=== PATIENT | male | born 1950 | race Caucasian/White ===

== ENCOUNTER 2017-06-01 09:37 | Inpatient (IN) | payer OTHER ==
[~2017-06-01] VITALS: Ht 180.3 cm; Wt 76.2 kg
[2017-06-01] VITALS (13 sets, daily range): BP systolic 122–174; BP diastolic 75–100
[~2017-06-01 09:37] MED LIST: ASP325T PO; ATOR40TA PO; CLOP75TA PO; CYCL10TA9 PO; LISI10TA PO; METO-270 PO; PRX10T PO; RT-ALBUTEROL/IPRATROPIUM 3 ML (DUONEB) VIAL ONE
[2017-06-01] MEDS ORDERED: RT-ALBUTEROL SULF 2.5 MG/3 ML PRE-MIX VIAL ONE (09:45)
[2017-06-01] MEDS ORDERED: methylPREDNISolone 125 MG (Solu-MEDROL) VIAL IVP ONE (09:45)
[2017-06-01] MEDS ORDERED: ASPIRIN 81 MG CHEW (CHILDREN'S ASA) PO ONE (09:45)
[2017-06-01] MEDS ORDERED: RT-ALBUTEROL/IPRATROPIUM 3 ML (DUONEB) VIAL INH ONE (09:45)
[2017-06-01] MEDS ORDERED: RT-ALBUTEROL SULF 2.5 MG/3 ML PRE-MIX VIAL INH STA (09:49)
[2017-06-01 09:50] LABS: BASOPHILS # (AUTO) 0.1 10^3/uL (0.0-0.1); BASOPHILS % (AUTO) 1 % (0-10); EOSINOPHILS # (AUTO) 0.4 10^3/uL (0.0-0.3); EOSINOPHILS % (AUTO) 3 % (0-10); LYMPHOCYTES # (AUTO) 3.7 X 10^3 (1.0-4.0); LYMPHOCYTES % (AUTO) 29 % (12-44); MEAN CORPUSCULAR HEMOGLOBIN 29 PG (25-34); MEAN CORPUSCULAR HGB CONC 33 G/DL (32-36); MEAN CORPUSCULAR VOLUME 88 FL (80-99); MEAN PLATELET VOLUME 10.5 FL (7.4-10.4); MONOCYTES # (AUTO) 0.9 X 10^3 (0.0-1.0); MONOCYTES % (AUTO) 7 % (0-12); NEUTROPHILS # (AUTO) 7.6 X 10^3 (1.8-7.8); NEUTROPHILS % (AUTO) 60 % (42-75); PLATELET COUNT 289 10^3/uL (130-400); RED BLOOD COUNT 5.31 10^6/uL (4.35-5.85); RED CELL DISTRIBUTION WIDTH 16.1 % (10.0-14.5); WHITE BLOOD COUNT 12.7 10^3/uL (4.3-11.0)
[2017-06-01] MEDS ORDERED: LEVOFLOXACIN 750 MG/150 ML IV 150 ML IV ONE (10:00)
[2017-06-01] MEDS ORDERED: RT-IPRATROPIUM (ATROVENT) 0.5MG/2.5ML AMP IH ONE (10:00)
[2017-06-01 10:02] LABS: PROTHROMBIN TIME PATIENT 13.1 SEC (12.2-14.7)
[2017-06-01 10:13] LABS: ALANINE AMINOTRANSFERASE 28 U/L (0-55); ALBUMIN 3.9 GM/DL (3.2-4.5); ANION GAP 13 MMOL/L (5-14); ASPARTATE AMINO TRANSFERASE 30 U/L (5-34); BILIRUBIN,TOTAL 1.2 MG/DL (0.1-1.0); BLOOD UREA NITROGEN 17 MG/DL (7-18); BUN/CREATININE RATIO 15; CALCIUM 8.7 MG/DL (8.5-10.1); CARBON DIOXIDE 21 MMOL/L (21-32); CHLORIDE 107 MMOL/L (98-107); CREATININE SERUM 1.15 MG/DL (0.60-1.30); GFR ESTIMATED > 60; GLUCOSE 169 MG/DL (70-105); MAGNESIUM 2.2 MG/DL (1.8-2.4); POTASSIUM 3.8 MMOL/L (3.6-5.0); SODIUM 141 MMOL/L (135-145); TOTAL PROTEIN 7.2 GM/DL (6.4-8.2)
[2017-06-01 10:20] LABS: MYOGLOBIN SERUM 71.1 NG/ML (10.0-92.0)
[2017-06-01 10:26] LABS: ABG BASE EXCESS -4.8 MMOL/L (-2.5-2.5); ABG HCO3 20 MMOL/L (23-27); ABG OXYGEN SATURATION 97 % (94-100); ABG PCO2 38 MMHG (35-45); ABG PO2 73 MMHG (79-93); ABG TCO2 21.5 MMOL/L (21.0-31.0)
--- NOTE | 2017-06-01 10:26 | Diagnostic Imaging Report ---
EXAMINATION: Portable upright radiograph of the chest. INDICATION: Shortness of breath. FINDINGS: There is diffuse interstitial thickening. There is suggestion of a 3.7 cm left apical mass. There is right basilar focal consolidation or atelectasis. Small right effusion is seen. The heart size is at the upper limits of normal. IMPRESSION: There is suggestion of a left upper lobe mass. Interstitial thickening may related to vascular congestion with mild right basilar infiltrates or atelectasis. Further evaluation with CT scan of the chest is suggested. Dictated by: Dictated on workstation # [id number]
[2017-06-01 10:27] LABS: ABG PH 7.34 (7.37-7.43); ALLENS TEST YES-POS
[2017-06-01] MEDS ORDERED: NS IV 1000 ML 1,000 ML IV ONE ×2 (10:38→12:30)
[2017-06-01] MEDS ORDERED: IOHEXOL 350 MG/ML 150 ML (OMNIPAQUE 350) VIAL IV ONE (11:00)
[2017-06-01] MEDS ORDERED: NS 100 ML (IVPB) BAG IV ONE (11:00)
[2017-06-01] MEDS ORDERED: PIPERACILLIN SODIUM/TAZOBACTAM 4.5 GM in NS (IVPB) 100 ML IV ONE (11:00)
--- NOTE | 2017-06-01 11:04 | ED General ---
General Chief Complaint: Respiratory Problems Stated Complaint: SOA Nursing Triage Note: PT OUT OF CAR W ASSISTANCE AND TO ROOM 3 PER W/C CO OF SOA THAT STARTED TODAY Nursing Sepsis Screen: No Definite Risk Source of Information: Patient Exam Limitations: No Limitations History of Present Illness Time Seen by Provider: 09:39 Initial Comments This 66-year-old man presents to the emergency room by private vehicle in respiratory distress complaining of difficulty breathing and chest pain. He has had less severe episodes intermittently over the past month or 2 but today his symptoms are very severe. He notes symptoms came on fairly suddenly [place] the [place] this [place]. He denies any recent cough or fever. He reports quitting tobacco 3 days ago. Oxygen saturation was 80 percent on room air on arrival. He was significantly tachycardic and hypertensive with diffuse tight wheezes. He denies any prior history of COPD or cardiac problems. He has significant lower extremity pitting edema bilaterally. Allergies and Home Medications Allergies Coded Allergies: No Known Drug Allergies (Unverified , 11/07/12) Home Medications Aspirin 325 Mg Tab, 325 MG PO BID, (Reported) Constitutional: no symptoms reported EENTM: no symptoms reported Respiratory: see HPI Cardiovascular: see HPI Gastrointestinal: no symptoms reported Genitourinary: no symptoms reported Musculoskeletal: no symptoms reported Skin: no symptoms reported Psychiatric/Neurological: No Symptoms Reported Hematologic/Lymphatic: No Symptoms Reported Past Otjiavs-Vacing-Alpkmc Hx Patient Social History Alcohol Use: Past History Recreational Drug Use: No Smoking Status: Current Everyday Smoker Type Used: Cigarettes Recent Foreign Travel: No Contact w/Someone Who Travel: No Recent Infectious Disease Expo: No Recent Hopitalizations: No (never hospitalized) Immunizations Up To Date Tetanus Booster (TDap): Less than 5yrs Seasonal Allergies Seasonal Allergies: No Surgeries HX Surgeries: Yes ( r carotid) Surgeries: Vascular Surgery Respiratory Hx Respiratory Disorders: Yes (Tobaccoism) Respiratory Disorders: COPD, Emphysema Cardiovascular Hx Cardiac Disorders: Yes Cardiac Disorders: Hypertension, Peripheral Vascular Neurological Hx Neurological Disorders: Yes (10/2012) Neurological Disorders: Stroke Reproductive System Hx Reproductive Disorders: No Sexually Transmitted Disease: No HIV/AIDS: No Genitourinary Hx Genitourinary Disorders: No Gastrointestinal Hx Gastrointestinal Disorders: No Musculoskeletal Hx Musculoskeletal Disorders: Yes Musculoskeletal Disorders: Scoliosis Endocrine Hx Endocrine Disorders: No HEENT HX ENT Disorders: No Cancer Hx Cancer: No Psychosocial Hx Psychiatric Problems: No Integumentary HX Skin/Integumentary Disorder: No Blood Transfusions Hx Blood Disorders: No Adverse Reaction to a Blood Tr: No Family Medical History Family Medial History: Cardiovascular disease 19 MOTHER Diabetes mellitus 19 MOTHER FH: cancer G8 BROTHER (BONE) Physical Exam-Suspected Sepsis Physical Exam Vital Signs Vital Sign - Last 12Hours 06/01/17 06/01/17 09:37 09:45 Temp 96.1 Pulse 130 Resp 39 B/P (MAP) 170/122 Pulse Ox 97 O2 Delivery Nasal Cannula O2 Flow Rate 6.00 FiO2 87 Capillary Refill : Less Than 3 Seconds Blood Pressure Mean: 138 General Appearance: WD/WN, Severe Distress HEENT: PERRL/EOMI, Normal ENT Inspection Respiratory: Accessory Muscle Use, No Crackles, Respiratory Distress, Wheezing Cardiovascular: No Murmur, Tachycardia (regular), Other (lower extremity pitting edema equal bilaterally) Gastrointestinal: Non Tender, Soft Extremity: Pedal Edema, Swelling, Other (few excoriated sores on the lower extremities) Neurologic/Psychiatric: Alert, Oriented x3, No Motor/Sensory Deficits, Normal Mood/Affect, solution manager II-XII Norm as Tested Skin: normal color, warm/dry Focused Exam Evaluation Sepsis Stage: Severe Sepsis Possible Source: Pulmonary Time of Focused Exam: 11:25 Respiratory: Lungs Clear, Normal Breath Sounds, No Accessory Muscle Use, No Respiratory Distress Cardiovascular: No Murmur, Tachycardia, Other (bilateral lower extremity pitting edema) Capillary Refill: Less Than 3 Seconds Peripheral Pulses: 2+ Radial Pulses (R) Skin: normal color, warm/dry Lactic Acid Level Progress/Results/Core Measures Suspected Sepsis Recent Fever Within 48 Hours: No Infection Criteria Present: None New/Unexplained Altered Menta: No Sepsis Screen: No Definite Risk Sepsis Diagnosis: SIRS Temperature:96.1 Pulse: 112 Respiratory Rate: 26 Laboratory Tests 06/01/17 09:40: White Blood Count 12.7H 06/02/17 05:03: White Blood Count 10.9 Blood Pressure 148 /96 Mean: 138 Laboratory Tests 06/01/17 09:40: Creatinine 1.15, INR Comment 1.0, Platelet Count 289, Total Bilirubin 1.2H 06/02/17 05:03: Creatinine 0.94, INR Comment 1.1, Platelet Count 200, Total Bilirubin 0.6 Results/Orders Lab Results Laboratory Tests Test 06/01/17 09:40 06/01/17 09:52 06/01/17 10:15 06/01/17 13:05 Range/Units White Blood Count 12.7 H 4.3-11.0 10^3/uL Red Blood Count 5.31 4.35-5.85 10^6/uL Hemoglobin 15.3 13.3-17.7 G/DL Hematocrit 47 40-54 % Mean Corpuscular Volume 88 80-99 FL Mean Corpuscular Hemoglobin 29 25-34 PG Mean Corpuscular Hemoglobin Concent 33 32-36 G/DL Red Cell Distribution Width 16.1 H 10.0-14.5 % Platelet Count 289 130-400 10^3/uL Mean Platelet Volume 10.5 H 7.4-10.4 FL Neutrophils (%) (Auto) 60 42-75 % Lymphocytes (%) (Auto) 29 12-44 % Monocytes (%) (Auto) 7 0-12 % Eosinophils (%) (Auto) 3 0-10 % Basophils (%) (Auto) 1 0-10 % Neutrophils # (Auto) 7.6 1.8-7.8 X 10^3 Lymphocytes # (Auto) 3.7 1.0-4.0 X 10^3 Monocytes # (Auto) 0.9 0.0-1.0 X 10^3 Eosinophils # (Auto) 0.4 H 0.0-0.3 10^3/uL Basophils # (Auto) 0.1 0.0-0.1 10^3/uL Prothrombin Time 13.1 12.2-14.7 SEC INR Comment 1.0 0.8-1.4 Activated Partial Thromboplast Time 31 24-35 SEC Sodium Level 141 135-145 MMOL/L Potassium Level 3.8 3.6-5.0 MMOL/L Chloride Level 107 98-107 MMOL/L Carbon Dioxide Level 21 21-32 MMOL/L Anion Gap 13 5-14 MMOL/L Blood Urea Nitrogen 17 7-18 MG/DL Creatinine 1.15 0.60-1.30 MG/DL Estimat Glomerular Filtration Rate > 60 BUN/Creatinine Ratio 15 Glucose Level 169 H 70-105 MG/DL Calcium Level 8.7 8.5-10.1 MG/DL Magnesium Level 2.2 1.8-2.4 MG/DL Total Bilirubin 1.2 H 0.1-1.0 MG/DL Aspartate Amino Transf (AST/SGOT) 30 5-34 U/L Alanine Aminotransferase (ALT/SGPT) 28 0-55 U/L Alkaline Phosphatase 99 40-136 U/L Myoglobin 71.1 10.0-92.0 NG/ML Troponin I < 0.30 <0.30 NG/ML C-Reactive Protein High Sensitivity 0.78 H 0.00-0.50 MG/DL B-Type Natriuretic Peptide 998.4 H <100.0 PG/ML Total Protein 7.2 6.4-8.2 GM/DL Albumin 3.9 3.2-4.5 GM/DL Lactic Acid Level 2.95 *H 2.08 *H 0.50-2.00 MMOL/L Blood Gas Puncture Site RT RAD Blood Gas Patient Temperature 96.0 Arterial Blood pH 7.34 *L 7.37-7.43 Arterial Blood Partial Pressure CO2 38 35-45 MMHG Arterial Blood Partial Pressure O2 73 L 79-93 MMHG Arterial Blood HCO3 20 L 23-27 MMOL/L Arterial Blood Total CO2 21.5 21.0-31.0 MMOL/L Arterial Blood Oxygen Saturation 97 94-100 % Arterial Blood Base Excess -4.8 L -2.5-2.5 MMOL/L Danile Test YES-POS Blood Gas Ventilator Setting NO Blood Gas Inspired Oxygen 3L Test 06/01/17 15:42 06/01/17 17:14 06/01/17 21:00 06/01/17 23:06 Range/Units Troponin I < 0.30 <0.30 NG/ML Lactic Acid Level 1.81 2.27 *H 1.19 0.50-2.00 MMOL/L Test 06/02/17 01:04 06/02/17 05:03 06/02/17 12:00 Range/Units Lactic Acid Level 1.22 0.92 0.50-2.00 MMOL/L White Blood Count 10.9 4.3-11.0 10^3/uL Red Blood Count 4.02 L 4.35-5.85 10^6/uL Hemoglobin 11.8 #L 13.3-17.7 G/DL Hematocrit 35 L 40-54 % Mean Corpuscular Volume 88 80-99 FL Mean Corpuscular Hemoglobin 29 25-34 PG Mean Corpuscular Hemoglobin Concent 34 32-36 G/DL Red Cell Distribution Width 15.7 H 10.0-14.5 % Platelet Count 200 130-400 10^3/uL Mean Platelet Volume 10.5 H 7.4-10.4 FL Neutrophils (%) (Auto) 81 H 42-75 % Lymphocytes (%) (Auto) 13 12-44 % Monocytes (%) (Auto) 7 0-12 % Eosinophils (%) (Auto) 0 0-10 % Basophils (%) (Auto) 0 0-10 % Neutrophils # (Auto) 8.8 H 1.8-7.8 X 10^3 Lymphocytes # (Auto) 1.4 1.0-4.0 X 10^3 Monocytes # (Auto) 0.7 0.0-1.0 X 10^3 Eosinophils # (Auto) 0.0 0.0-0.3 10^3/uL Basophils # (Auto) 0.0 0.0-0.1 10^3/uL Prothrombin Time 13.8 12.2-14.7 SEC INR Comment 1.1 0.8-1.4 Activated Partial Thromboplast Time 33 24-35 SEC Sodium Level 140 135-145 MMOL/L Potassium Level 3.7 3.6-5.0 MMOL/L Chloride Level 112 H 98-107 MMOL/L Carbon Dioxide Level 16 L 21-32 MMOL/L Anion Gap 12 5-14 MMOL/L Blood Urea Nitrogen 15 7-18 MG/DL Creatinine 0.94 0.60-1.30 MG/DL Estimat Glomerular Filtration Rate > 60 BUN/Creatinine Ratio 16 Glucose Level 109 H 70-105 MG/DL Calcium Level 8.0 L 8.5-10.1 MG/DL Phosphorus Level 2.9 2.3-4.7 MG/DL Magnesium Level 1.7 L 1.8-2.4 MG/DL Total Bilirubin 0.6 0.1-1.0 MG/DL Aspartate Amino Transf (AST/SGOT) 17 5-34 U/L Alanine Aminotransferase (ALT/SGPT) 20 0-55 U/L Alkaline Phosphatase 70 40-136 U/L Total Protein 5.3 L 6.4-8.2 GM/DL Albumin 3.2 3.2-4.5 GM/DL Triglycerides Level 42 <150 MG/DL Cholesterol Level 136 < 200 MG/DL LDL Cholesterol Direct 88 1-129 MG/DL VLDL Cholesterol 8 5-40 MG/DL HDL Cholesterol 42 40-60 MG/DL Thyroid Stimulating Hormone (TSH) 2.40 0.35-4.94 UIU/ML Vancomycin Level Trough 10.8 10.0-20.0 UG/ML Micro Results Microbiology 06/01/17 Blood Culture - Preliminary, Resulted No growth 06/01/17 Blood Culture - Preliminary, Resulted No growth My Orders Orders - SHEKHAR AVILES MD Cbc With Automated Diff (06/01/17 09:41) Magnesium (06/01/17 09:41) Chest 1 View, Ap/Pa Only (06/01/17 09:41) Ekg Tracing (06/01/17 09:41) Cardiac Profile 1 (06/01/17 09:41) Comprehensive Metabolic Panel (06/01/17 09:41) Myoglobin Serum (06/01/17 09:41) Protime With Inr (06/01/17 09:41) Partial Thromboplastin Time (06/01/17 09:41) O2 (06/01/17 09:41) Monitor-Rhythm Ecg Trace Only (06/01/17 09:41) Aspirin Chewable Tablet (Baby Aspirin Ch (06/01/17 09:45) Saline Lock/Iv-Start (06/01/17 09:41) Hs C Reactive Protein (06/01/17 09:41) Albuterol/Ipra Inhalation Soln (Duoneb I (06/01/17 09:45) Svn Sm Volume Nebulizer Rt-Rfs (06/01/17 09:41) Methylprednisolone Sod Succ (Solu-Medrol (06/01/17 09:45) Albuterol/Ipra Inhalation Soln (Duoneb I (06/01/17 09:37) BNP (06/01/17 09:45) Blood Culture (06/01/17 09:48) Lactic Acid Analyzer (06/01/17 09:48) Albuterol Pre-Mix Nebs (Rt) (Proventil P (06/01/17 09:49) Ipratropium 0.02% Neb Solution (Atrovent (06/01/17 10:00) Svn Sm Volume Nebulizer Rt-Rfs (06/01/17 09:49) Svn Sm Volume Nebulizer Rt-Rfs (06/01/17 09:49) Levofloxacin 750 Mg/150 Ml Iv (Levaquin (06/01/17 10:00) Arterial Blood Gas (06/01/17 09:51) Albuterol Pre-Mix Nebs (Rt) (Proventil P (06/01/17 09:45) Ns Iv 1000 Ml (Sodium Chloride 0.9%) (06/01/17 10:38) Piperacillin Sodium/Tazobactam (Zosyn Vi (06/01/17 11:00) Ct Angio Chest W (06/01/17 10:49) Iohexol Injection (Omnipaque 350 Mg/Ml 1 (06/01/17 11:00) Ns (Ivpb) (Sodium Chloride 0.9% Ivpb Bag (06/01/17 11:00) Medications Given in ED Vital Signs/I&O Vital Sign - Last 12Hours 06/02/17 06/02/17 06/02/17 06/02/17 05:00 06:00 07:00 07:00 Pulse 81 62 80 80 Resp 25 18 20 B/P (MAP) 142/91 135/76 128/79 Pulse Ox 97 99 97 O2 Delivery Room Air Room Air Room Air 06/02/17 06/02/17 06/02/17 06/02/17 07:01 08:30 08:33 09:00 Temp 97.4 Pulse 79 63 Resp 18 15 B/P (MAP) 110/73 122/71 Pulse Ox 98 94 95 97 O2 Delivery Nasal Cannula Room Air OxyMask Room Air O2 Flow Rate 6.00 2.00 06/02/17 06/02/17 06/02/17 06/02/17 10:00 11:00 11:34 11:43 Pulse 91 101 Resp 13 22 B/P (MAP) 133/94 133/93 Pulse Ox 98 96 97 100 O2 Delivery Room Air Room Air Nasal Cannula Nasal Cannula O2 Flow Rate 1.00 3.00 06/02/17 06/02/17 06/02/17 06/02/17 12:00 12:00 13:00 14:26 Temp 97.4 Pulse 93 83 Resp 28 B/P (MAP) 132/79 Pulse Ox 97 96 O2 Delivery Room Air Nasal Cannula O2 Flow Rate 2.00 06/02/17 06/02/17 14:50 15:46 Temp 96.3 97.8 Pulse 81 74 Resp 18 20 B/P (MAP) 141/75 130/74 Pulse Ox 93 90 O2 Delivery Room Air Room Air Capillary Refill : Less Than 3 Seconds Blood Pressure Mean: 138 ECG Initial ECG Impression Date: Jun 01, 2017 Initial ECG Impression Time: 09:43 Initial ECG Rate: 132 Initial ECG Rhythm: S.Tach Comment Sinus tachycardia with no clear ST elevation or depression. No abnormal intervals. Possible LVH. Diagnostic Imaging Diagonstic Imaging: Xray Plain Films/CT/US/NM/MRI: chest Comments Chest x-ray viewed by me, report reviewed, and discussed with radiologist. See report below: NAME: MARLON GONSALEZ [facility] REC#: [id number] PT STATUS: REG ER : 1950 PHYSICIAN: SHEKHAR AVILES MD ADMIT DATE: 06/01/17/ER Draft Date of Exam:06/01/17 CHEST 1 VIEW, AP/PA ONLY EXAMINATION: Portable upright radiograph of the chest. INDICATION: Shortness of breath. FINDINGS: There is diffuse interstitial thickening. There is suggestion of a 3.7 cm left apical mass. There is right basilar focal consolidation or atelectasis. Small right effusion is seen. The heart size is at the upper limits of normal. IMPRESSION: There is suggestion of a left upper lobe mass. Interstitial thickening may related to vascular congestion with mild right basilar infiltrates or atelectasis. Further evaluation with CT scan of the chest is suggested. Dictated on workstation # [id number] Dict: 06/01/17 1008 Trans: 06/01/17 1026 [facility] [id number] Interpreted by: PHOENIX GAGNON MD Critical Care Note Critical Care Start Time: 09:39 Stop Time: 11:37 Total Time (minutes) 1118 Progress 10:00 patient has been seen and examined. He is in respiratory distress. Sepsis is a consideration. EKG showed no definite ischemia. Patient took aspirin at home 325 mg. An hour-long breathing treatment has been ordered along with Solu-Medrol 125 mg. 10:10 patient is not improving as desired on nebulizer treatments. BiPAP will be started to prevent pulmonary fatigue. 10:40 patient appears to have pneumonia in the right lower lung and possibly in the left upper lung. There is question of mass in the left upper lung. Case was reviewed with Dr. Younger. We discussed withholding administration of high volume fluid resuscitation as patient appears to be developing pulmonary edema on the chest x-ray. Since patient meets severe sepsis criteria, we will administer the high-volume fluids by starting a liter of normal saline in the emergency room. This is being performed with the understanding that patient is at high risk for intubation. CODE STATUS was discussed with patient and he is agreeable to intubation if necessary to save his life. Levaquin was initially ordered for IV antibiotic therapy. Zosyn is being added at Dr. Younger's request. Dr. Younger also requests CT angiogram to be performed for further evaluation of the chest and possible left upper lung mass. 11:29 heart rate has improved to 107. Patient reexamined. Breathing is much more relaxed and wheezing has resolved on BiPAP. Patient is going to be trialed briefly off of BiPAP to determine if he can tolerate CT scan without it. He is receiving Levaquin and Zosyn. IV fluids are infusing. 11:37 patient is tolerating removal of BiPAP well. He is being taken for CT angiogram and then to the ICU. Departure Communication Time/Spoke to Admitting Phy: 10:[address] Dubon Communication/Consulting Dr. Younger at 10:35 Dr. Almendarez at 10:50 Impression Impression: Primary Impression: Severe sepsis Additional Impressions: Respiratory failure Qualified Codes: J96.01 - Acute respiratory failure with hypoxia Pneumonia Qualified Codes: J18.1 - Lobar pneumonia, unspecified organism Chest pain Qualified Codes: R07.9 - Chest pain, unspecified Pulmonary edema Qualified Codes: J81.0 - Acute pulmonary edema Disposition: ADMITTED INPATIENT Condition: Improved Decision to Admit Reason: Admit from ER (General) Decision to Admit/Date: Jun 01, 2017 Time/Decision to Admit Time: 09:40 Departure-Patient Inst. Referrals: BEN HENDERSON MD (PCP/Family) Primary Care Physician SHEKHAR AVILES MD Jun 01, 2017 11:04
[2017-06-01] MEDS ORDERED: NS IV 500 ML 500 ML ONE (12:08)
[2017-06-01] MEDS: NOREPINEPHRINE 4 MG in D5W 250 ML (IVPB) 250 ML IV SCH ×2 (12:12→18:45)
[2017-06-01] MEDS ORDERED: PHENYLEPHRINE FOR DRIPS 10 MG in D5W 250 ML (IVPB) 250 ML IV SCH (12:12)
[2017-06-01] MEDS: VASOPRESSIN INJECTION 20 UNIT in NS (IVPB) 100 ML IV SCH ×2 (12:12→20:55)
[2017-06-01] MEDS ORDERED: PHARMACY TO DOSE IV SCH (12:15)
--- NOTE | 2017-06-01 12:24 | Consultation-Cardiology ---
HPI-Cardiology Cardiology Consultation: Date of Consultation 06/01/17 Time Seen by Provider: 11:50 Date of Admission - 06-01-17 Attending Physician Celina Dubon DO Admitting Physician Eda Jara MD Consulting Physician Otoniel Almendarez MD, MA FACP [facility] HPI: Chief Complaint: Dyspnea Mr. Padilla is a 66 year old male admitted to ICU 1 from the ED. He reports over the course of the last month he has been having episodes of dyspnea which are not always r/t activity. He reports episode of sweating, fatigue and cough. He states the episodes of dyspnea have been getting more progressive over the last 2 weeks. He does report chest heaviness with shortness of breath, states it "feels like something sitting on my chest". He has chronic bilat LE edema with R>L which he feels is unchanged. He does report orthopnea. He reports he smokes approx 2 PPD of cigs. No c/o palpitations. No c/o syncope or near syncope. No c/o n/v/d. Review of Systems-Cardiology Review of Systems Constitutional: As described under HPI, No As described under HPI, No no symptoms reported, No chills, No fever, No lightheadedness Eyes: No As described under HPI, No no symptoms reported, No blindness, No blurred vision, No contact lenses, No drainage, No decreased acuity, No foreign body sensation, No glasses, No inflammation, No pain, No photophobia, No previous injury, No shadows, No tunnel vision, No other, No vision change Ears/Nose/Throat: No As described under HPI, No no symptoms reported, No chronic hearing loss, No ear discharge, No ear pain, No nasal drainage, No ulcerations Respiratory: As described under HPI Cardiovascular: As described under HPI Gastrointestinal: No no symptoms reported, No As described under HPI, No abdomen distended, No abdominal pain, No blood streaked bowels, No constipation , No diarrhea, No nausea, No vomiting, No stool coloration changes Genitourinary: No As described under HPI, No burning, No dysuria, No discharge , No frequency, No flank pain, No hematuria, No urgency Skin: No rash, No skin related problems, No ulcerations Psychiatric/Neurological: No anxiety, No depression, No focal weakness, No seizure, No syncope Hematologic: No bleeding abnormalities RRR-Avwvnu-Zpcrhn Hx Patient Social History Alcohol Use: Past History Recreational Drug Use: No Smoking Status: Current Everyday Smoker Type Used: Cigarettes Recent Foreign Travel: No Recent Infectious Disease Expo: No Hospitalization with Isolation: Denies Immunizations Up To Date Tetanus Booster (TDap): Less than 5yrs Past Medical History PMH As described under Assessment. Family Medical History Family Medical History: He reports his mother had DM and CAD. Family History: Cardiovascular disease 19 MOTHER Diabetes mellitus 19 MOTHER FH: cancer G8 BROTHER (BONE) Allergies and Home Medications Allergies Coded Allergies: No Known Drug Allergies (Unverified , 11/07/12) Home Medications Aspirin 325 Mg Tab, 325 MG PO BID, (Reported) Physical Exam-Cardiology Physical Exam Vital Signs/I&O Vital Sign - Last 12Hours 06/01/17 06/01/17 06/01/17 06/01/17 09:37 09:38 09:45 10:20 Temp 96.1 Pulse 130 Resp 39 B/P (MAP) 170/122 Pulse Ox 97 97 95 O2 Delivery Nasal Cannula Nasal Cannula Nasal Cannula O2 Flow Rate 6.00 6.00 2.00 3.00 FiO2 87 06/01/17 06/01/17 06/01/17 06/01/17 10:21 11:20 12:00 12:00 Temp 96.1 97.8 Pulse 112 108 116 Resp 26 27 25 B/P (MAP) 171/95 Pulse Ox 98 97 98 O2 Delivery NIV Bilevel Nasal Cannula Nasal Cannula O2 Flow Rate 25.00 3.00 3.00 06/01/17 06/01/17 06/01/17 06/01/17 12:00 13:00 13:00 14:00 Pulse 116 115 115 120 Resp 16 14 B/P (MAP) 174/99 162/100 Pulse Ox 100 98 O2 Delivery Nasal Cannula Nasal Cannula O2 Flow Rate 3.00 3.00 06/01/17 06/01/17 06/01/17 06/01/17 14:56 15:38 16:00 16:05 Temp 98.4 Pulse 83 83 Resp 25 20 B/P (MAP) 134/76 149/77 Pulse Ox 97 97 99 97 O2 Delivery Nasal Cannula Nasal Cannula Nasal Cannula Nasal Cannula O2 Flow Rate 5.00 3.00 3.00 3.00 Capillary Refill : Less Than 3 Seconds Constitutional: appears stated age, No apparent distress, well-developed, well- nourished HEENT: PERRL, No discharge, hearing is well preserved, oral hygience is good, No ulceration, No xanthelasmas are seen Neck: No carotid bruit, carotid pulses are 2 + bilaterally Respiratory: other (diminished lower lobes bilat; frequent non-productive cough ; dyspneic with conversation) Cardiovascular: regular rate-rhythm (tachycardic), No JVD, S1 and S2, systolic murmur Gastrointestinal: No tender, soft, round, audible bowel sounds, No spleenomegaly Rectal: deferred Extremities: No clubbing, No cyanosis, significant edema (R LE edema mod, LLE edema mild) Neurologic/Psychiatric: alert, oriented x 3, other (Right sided weakness ( chronic)) Skin: normal color, warm/dry, other (multiple abrasions with scabbing to his lower extremities and upper arms) Data Review Labs Laboratory Tests 06/01/17 09:40: White Blood Count 12.7H, Red Blood Count 5.31, Hemoglobin 15.3, Hematocrit 47, Mean Corpuscular Volume 88, Mean Corpuscular Hemoglobin 29, Mean Corpuscular Hemoglobin Concent 33, Red Cell Distribution Width 16.1H, Platelet Count 289, Mean Platelet Volume 10.5H, Neutrophils (%) (Auto) 60, Lymphocytes (%) (Auto) 29 , Monocytes (%) (Auto) 7, Eosinophils (%) (Auto) 3, Basophils (%) (Auto) 1, Neutrophils # (Auto) 7.6, Lymphocytes # (Auto) 3.7, Monocytes # (Auto) 0.9, Eosinophils # (Auto) 0.4H, Basophils # (Auto) 0.1, Prothrombin Time 13.1, INR Comment 1.0, Activated Partial Thromboplast Time 31, Sodium Level 141, Potassium Level 3.8, Chloride Level 107, Carbon Dioxide Level 21, Anion Gap 13, Blood Urea Nitrogen 17, Creatinine 1.15, Estimat Glomerular Filtration Rate > 60 , BUN/Creatinine Ratio 15, Glucose Level 169H, Calcium Level 8.7, Magnesium Level 2.2, Total Bilirubin 1.2H, Aspartate Amino Transf (AST/SGOT) 30, Alanine Aminotransferase (ALT/SGPT) 28, Alkaline Phosphatase 99, Myoglobin 71.1, Troponin I < 0.30, C-Reactive Protein High Sensitivity 0.78H, B-Type Natriuretic Peptide 998.4H, Total Protein 7.2, Albumin 3.9 06/01/17 09:52: Lactic Acid Level 2.95*H 06/01/17 10:15: Blood Gas Puncture Site RT RAD, Blood Gas Patient Temperature 96.0, Arterial Blood pH 7.34*L, Arterial Blood Partial Pressure CO2 38, Arterial Blood Partial Pressure O2 73L, Arterial Blood HCO3 20L, Arterial Blood Total CO2 21.5, Arterial Blood Oxygen Saturation 97, Arterial Blood Base Excess -4.8L, Daniel Test YES-POS, Blood Gas Ventilator Setting NO, Blood Gas Inspired Oxygen 3L 06/01/17 13:05: Lactic Acid Level 2.08*H 06/01/17 15:42: Troponin I < 0.30 06/01/17 17:14: Radiology NAME: MARLON PADILLA [facility] REC#: [id number] PT STATUS: ADM IN : 1950 PHYSICIAN: SHEKHAR AVILES MD ADMIT DATE: 06/01/17/ICU Signed Date of Exam: 06/01/17 CHEST 1 VIEW, AP/PA ONLY EXAMINATION: Portable upright radiograph of the chest. INDICATION: Shortness of breath. FINDINGS: There is diffuse interstitial thickening. There is suggestion of a 3.7 cm left apical mass. There is right basilar focal consolidation or atelectasis. Small right effusion is seen. The heart size is at the upper limits of normal. IMPRESSION: There is suggestion of a left upper lobe mass. Interstitial thickening may related to vascular congestion with mild right basilar infiltrates or atelectasis. Further evaluation with CT scan of the chest is suggested. 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 Carpio HTN - uncontrolled Lung mass seen on CXR of 06-01-17 - pulmonary services following Discussion and Recomendations Complex management issue. Pneumonia with sepsis without hypotension. Management per pulmonary services. Acute CHF of undetermined etiology. Give diuretics and monitor lab. Echocardiogram to evaluate LVEF and structure. Uncontrolled hypertension for which we will start BB, this will also help with tachycardia. Chronic carotid arterial disease with R CEA in 2014. We will continue ASA tx at this time. Lung mass seen on CXR of today of undetermined etiology. Spoke with Dr. Younger or pulmonary services. Bronch planned for tomorrow. Per his request we will hold ASA until after bronch. Monitor lab closely. Further recommendations will be based on his hospital course. We would like to thank the Hospitalist service for this consult. This consult is being scribed by Benigno Artis APRN on behalf of Dr. Almendarez after discussion regarding plan of care. Physician Assessment Physician Assessment Lungs: fair air entry, prolonged exp, exp wheezes Cor: reg Ext: no c/c/e A&R * As documented in our note above that I updated (italics) and as documented below * Symptoms are likely due to resp (COPD, lung mass/pneumonia) and cardiac issues (CHF) * Investigate for CHF * Echo * Treat empirically for CHF * Monitor labs * I spoke with him and answered questions * Cessation of tobacco use advised SANDRA ARTIS Jun 01, 2017 12:24 OTONIEL ALMENDAREZ MD [facility] Jun 01, 2017 17:30
[2017-06-01] MEDS ORDERED: PIPERACILLIN/TAZOBACTAM 4.5 GM/NS 100 ML IV NR ×2 (12:25)
--- NOTE | 2017-06-01 12:33 | History & Physical-Hospitalist ---
HPI History of Present Illness: HPI/Chief Complaint CC: Severe Sepsis due to pneumonia and hypoxia HPI: This is a 66-year-old white male that previously had Dr. Jara is a primary care provider but hasn't seen anybody for the past 2 years that presents to the ER with shortness of breath and fever. Apparently this is been going on for several days and he quit smoking 3 days ago but it did not help him. He has evidence of severe sepsis with elevated lactic acid of 2.95 elevated BNP indicating volume overload and probably ischemic cardiomyopathy that cardiology will be consulted and evidence of left upper lobe mass and a smoker's highly suspicious for cancer. I can't obtaining more details because he is short of breath and he will likely need to be intubated. Dr. Younger has been consulted. Source: patient Exam Limitations: clinical condition Date Seen 06/01/17 Time Seen by Provider: 12:00 Attending Physician Celina Dubon Holly A MD Referring Physician Date of Admission Jun 01, 2017 at 10:45 Home Medications & Allergies Home Medications Reviewed patient Home Medication Reconciliation Form Allergies Allergies Coded Allergies No Known Drug Allergies (Unverified11/07/12) Past Gkpptax-Mecgxx-Vgtebm Hx Patient Social History Marrital Status: single Employed/Student: unemployed Alcohol Use: Past History Recreational Drug Use: No Smoking Status: Current Everyday Smoker Type Used: Cigarettes Recent Foreign Travel: No Contact w/other who traveled: No Recent Hopitalizations: No (never hospitalized) Recent Infectious Disease Expo: No Immunizations Up To Date Tetanus Booster (TDap): Less than 5yrs Seasonal Allergies Seasonal Allergies: No Surgeries HX Surgeries: Yes ( r carotid) Surgeries: Vascular Surgery Respiratory Hx Respiratory Disorders: Yes (Tobaccoism) Respiratory Disorders: COPD, Pneumonia Cardiovascular Hx Cardiovascular Disorders: Yes Cardiac Disorders: Hypertension, Peripheral Vascular Neurological Hx Neurological Disorders: Yes (10/2012) Neurological Disorders: Stroke Reproductive System Hx Reproductive Disorders: No Sexually Transmitted Disease: No HIV/AIDS: No Genitourinary Hx Genitourinary Disorders: No Gastrointestinal Hx Gastrointestinal Disorders: No Musculoskeletal Hx Musculoskeletal Disorders: Yes Musculoskeletal Disorders: Scoliosis Endocrine Hx Endocrine Disorders: No HEENT HX ENT Disorders: No Cancer Hx Cancer: No Psychosocial Hx Psychiatric Problems: No Integumentary HX Skin/Integumentary Disorder: No Blood Transfusions Hx Blood Disorders: No Adverse Reaction to a Blood Tr: No Family Medical History Family Hx: Cardiovascular disease 19 MOTHER Diabetes mellitus 19 MOTHER FH: cancer G8 BROTHER (BONE) Review of Systems Constitutional: see HPI, dizziness, fever, malaise, weakness EENTM: no symptoms reported Respiratory: cough, dyspnea on exertion, short of breath Cardiovascular: no symptoms reported Gastrointestinal: no symptoms reported Genitourinary: no symptoms reported Musculoskeletal: no symptoms reported Skin: no symptoms reported Psychiatric/Neurological: No Symptoms Reported All Other Systems Reviewed Negative Unless Noted: Yes Physical Exam Physical Exam Vital Signs Vital Sign - Last 12Hours 06/01/17 06/01/17 09:37 09:45 Temp 96.1 Pulse 130 Resp 39 B/P (MAP) 170/122 Pulse Ox 97 O2 Delivery Nasal Cannula O2 Flow Rate 6.00 FiO2 87 Capillary Refill : Less Than 3 Seconds General Appearance: WD/WN, Chronically ill, Moderate Distress, Obese Eyes: Bilateral Eye Normal Inspection, Bilateral Eye PERRL HEENT: PERRL/EOMI, Normal ENT Inspection, Pharynx Normal Neck: Full Range of Motion, Normal Inspection, Non Tender, Supple, Carotid Bruit Respiratory: Chest Non Tender, Crackles, Decreased Breath Sounds, Rales, Respiratory Distress, Wheezing Cardiovascular: No Gallop, No JVD, No Murmur, Normal Peripheral Pulses, Tachycardia Gastrointestinal: Normal Bowel Sounds, No Organomegaly, No Pulsatile Mass, Non Tender, Soft Back: Normal Inspection, No CVA Tenderness, No Vertebral Tenderness Extremity: Normal Capillary Refill, Normal Inspection, Normal Range of Motion, Non Tender, No Calf Tenderness, Swelling Neurologic/Psychiatric: Alert, Oriented x3, No Motor/Sensory Deficits, Normal Mood/Affect Skin: Normal Color, Warm/Dry Lymphatic: No Adenopathy Results Results/Procedures Lab Laboratory Tests 06/01/17 09:40 Assessment/Plan Admission Diagnosis Assessment: Severe sepsis due to pneumonia New left upper lobe lung mass suspicious for cancer in a smoker Elevated BNP consistent with volume overload likely ischemic cardiopathy consulting cardiology Smoker Noncompliant with medical treatment Assessment and Plan Plan: Maintain severe sepsis IV fluid resuscitation per protocol even though likely will require intubation due to volume overload Nebulizer treatments Oxygen supplementation Pain medication Empiric antibiotics CT scan to evaluate left upper lobe mass I appreciate cardiology and pulmonology critical care consultations CELINA DUBON DO Jun 01, 2017 12:32
--- NOTE | 2017-06-01 12:40 | Diagnostic Imaging Report ---
PROCEDURE: CT angiography of the chest with contrast. TECHNIQUE: Multiple contiguous axial images were obtained through the chest after uneventful bolus administration of intravenous contrast. Reconstructed CTA MIP acquisitions were also performed. INDICATION: Sepsis. Lung mass. FINDINGS: There is an irregular spiculated 3.6 x 3.3 x 3.5 cm lung mass in the left upper lobe. There is a 4 mm nodule seen in the lateral aspect of the left upper lobe at the same level as the mass, of uncertain etiology. There are also nonspecific right upper lobe nodules up to 6 mm in size. Early metastasis cannot be ruled out. There are bilateral apical bullae, more prominent on the right side. The mid and lower lung zones unfortunately suffer from breathing motion artifact. There is bilateral septal thickening and bilateral pcfxt-af-huqgpuie pleural effusions. This is suggestive of interstitial pulmonary edema. There is prominent thickness of the left ventricle particularly along the septal wall. Correlate for possible underlying LV hypertrophy. There is also the suggestion of mild LV dilatation. Prominent coronary artery calcifications are seen. The thoracic aorta is normal in caliber. No dissection or aneurysm is seen. There is a complete occlusion of the left common carotid artery from its origin at the arch to the visualized portion of the lower neck area. This could be chronic based on the small caliber of the occluded vessel. There is prominent soft plaque along the mid aspect of the brachycephalic artery. There is a lymph node minimally enlarged measuring 1 cm in short axis seen in the aortopulmonary window. Multiple other small mediastinal lymph nodes are seen, nonspecific. A cm infracarinal and a 1.7 cm right hilar lymph node are noted. No significantly enlarged left hilar lymph nodes are identified. Sections in the upper abdomen demonstrate no definite abnormality. Osseous structures demonstrate no destructive mass. IMPRESSION: 1. Suspicious 3.6 cm left upper lobe lung mass, probably lung cancer. There are indeterminate nodules up to 6 mm in the upper lobes bilaterally. Metastasis cannot be excluded. 2. Xnyfp-hh-dlunwrtr pleural effusions with interstitial thickening suggestive of interstitial pulmonary edema. There is suggestion of LV hypertrophy and mild dilatation. Significant coronary artery atherosclerotic calcifications are seen. 3. Chronic appearing complete occlusion of the left common carotid artery from its origin. There is prominent soft plaque without significant stenosis in the brachycephalic artery. The findings were discussed with Dr. Calero by Dr. Amin at the time of dictation. Dictated by: Dictated on workstation # [id number]
--- NOTE | 2017-06-01 12:52 | Pulmonary Consultation ---
History of Present Illness History of Present Illness Date of Consultation 06/01/17 12:47 Date of Admission Allergies and Home Medications Allergies Coded Allergies: No Known Drug Allergies (Unverified , 11/07/12) Home Medications Aspirin 325 Mg Tab, 325 MG PO BID, (Reported) Past Jsbmisj-Tkonlh-Tipdoc Hx Patient Social History Alcohol Use: Past History Recreational Drug Use: No Smoking Status: Current Everyday Smoker Type Used: Cigarettes Recent Foreign Travel: No Contact w/Someone Who Travel: No Recent Infectious Disease Expo: No Recent Hopitalizations: No (never hospitalized) Immunizations Up To Date Tetanus Booster (TDap): Less than 5yrs Seasonal Allergies Seasonal Allergies: No Surgeries HX Surgeries: Yes ( r carotid) Surgeries: Vascular Surgery Respiratory Hx Respiratory Disorders: Yes (Tobaccoism) Respiratory Disorders: COPD, Emphysema Cardiovascular Hx Cardiac Disorders: Yes Cardiac Disorders: Hypertension, Peripheral Vascular Neurological Hx Neurological Disorders: Yes (10/2012) Neurological Disorders: Stroke Reproductive System Hx Reproductive Disorders: No Sexually Transmitted Disease: No HIV/AIDS: No Genitourinary Hx Genitourinary Disorders: No Gastrointestinal Hx Gastrointestinal Disorders: No Musculoskeletal Hx Musculoskeletal Disorders: Yes Musculoskeletal Disorders: Scoliosis Endocrine Hx Endocrine Disorders: No HEENT HX ENT Disorders: No Cancer Hx Cancer: No Psychosocial Hx Psychiatric Problems: No Integumentary HX Skin/Integumentary Disorder: No Blood Transfusions Hx Blood Disorders: No Adverse Reaction to a Blood Tr: No Family Medical History Family Medial History: Cardiovascular disease 19 MOTHER Diabetes mellitus 19 MOTHER FH: cancer G8 BROTHER (BONE) Exam Exam Vital Signs Date Time Temp Pulse Resp B/P (MAP) Pulse Ox O2 Delivery O2 Flow Rate FiO2 06/01/17 11:20 96.1 108 27 97 NIV Bilevel 06/01/17 10:21 112 26 98 25.00 06/01/17 10:20 95 3.00 06/01/17 09:45 Nasal Cannula 2.00 87 06/01/17 09:38 97 Nasal Cannula 6.00 06/01/17 09:37 96.1 130 39 170/122 97 Nasal Cannula 6.00 General Appearance: WD/WN, Chronically ill, Moderate Distress, Obese HEENT: PERRL/EOMI, Normal ENT Inspection, Pharynx Normal Neck: Full Range of Motion, Normal Inspection, Non Tender, Supple, Carotid Bruit Respiratory: Chest Non Tender, Crackles, Decreased Breath Sounds, Rales, Respiratory Distress, Wheezing Cardiovascular: No Gallop, No JVD, No Murmur, Normal Peripheral Pulses, Tachycardia Capillary Refill: Less Than 3 Seconds Peripheral Pulses: 2+ Radial Pulses (R) Extremity: Normal Capillary Refill, Normal Inspection, Normal Range of Motion, Non Tender, No Calf Tenderness, Swelling Neurologic/Psychiatric: Alert, Oriented x3, No Motor/Sensory Deficits, Normal Mood/Affect Skin: Normal Color, Warm/Dry Lymphatic: No Adenopathy Results Lab Laboratory Tests 06/01/17 09:40 Assessment/Plan Assessment/Plan Respiratory distress secondary to CHF AE - doubt PNA -Cardiology consulted -Echocardiogram Large lung mass TERESA -Will plan on doing bronchoscopy tomorrow morning SIRS r/o sepsis -Will continue Abx and await chaudhry cultures -Secondary to pulmonary edema and doubting infection I am going to stop IVF and start lasix Tobacco dependance -education EDIL CARDENAS DO Jun 01, 2017 12:52
[2017-06-01] MEDS ORDERED: FUROSEMIDE 40 MG/4 ML INJ (LASIX) IVP NR (13:00)
[2017-06-01] MEDS ORDERED: KCL 20 MEQ TAB (K-DUR) PO NR (13:00)
[2017-06-01] MEDS ORDERED: meTOprolol SUCCINATE 100 MG (TOPROL XL) TAB PO NR (13:00)
[2017-06-01] MEDS: VANCOMYCIN INJECTION 1,000 MG in NS (IVPB) 250 ML IV SCH (13:39)
[2017-06-01] MEDS: NS IV 1000 ML 1,000 ML IV SCH ×4 (13:40→22:59)
[2017-06-01] MEDS: PHENYLEPHRINE INJECTION 10 MG in D5W 250 ML (IVPB) 250 ML IV SCH ×3 (14:29→22:59)
[2017-06-01] MEDS: RT-ALBUTEROL/IPRATROPIUM 3 ML (DUONEB) VIAL INH PRN (14:56)
[2017-06-01] MEDS: PIPERACILLIN SODIUM/TAZOBACTAM 4.5 GM in NS (IVPB) 100 ML IV SCH (16:32)
[2017-06-01] MEDS: ASPIRIN 325 MG (5 GR) TABLET PO SCH (16:32)
[2017-06-01] MEDS: RT-ALBUTEROL/IPRATROPIUM 3 ML (DUONEB) VIAL INH SCH (18:24)
[2017-06-02] VITALS (17 sets, daily range): BP systolic 110–155; BP diastolic 68–94
[2017-06-02] MEDS: RT-ALBUTEROL/IPRATROPIUM 3 ML (DUONEB) VIAL INH SCH ×7 (00:35→22:01)
[2017-06-02] MEDS: VANCOMYCIN INJECTION 1,000 MG in NS (IVPB) 250 ML IV SCH ×2 (01:35→14:32)
[2017-06-02] MEDS: PIPERACILLIN SODIUM/TAZOBACTAM 4.5 GM in NS (IVPB) 100 ML IV SCH ×3 (01:35→17:10)
[2017-06-02] MEDS: NOREPINEPHRINE 4 MG in D5W 250 ML (IVPB) 250 ML IV SCH ×2 (01:36→08:29)
[2017-06-02] MEDS: PHENYLEPHRINE INJECTION 10 MG in D5W 250 ML (IVPB) 250 ML IV SCH ×3 (02:58→11:33)
[2017-06-02] MEDS: VASOPRESSIN INJECTION 20 UNIT in NS (IVPB) 100 ML IV SCH (05:08)
[2017-06-02 05:15] LABS: BASOPHILS % (AUTO) 0 % (0-10); EOSINOPHILS % (AUTO) 0 % (0-10); LYMPHOCYTES # (AUTO) 1.4 X 10^3 (1.0-4.0); LYMPHOCYTES % (AUTO) 13 % (12-44); MEAN CORPUSCULAR HEMOGLOBIN 29 PG (25-34); MEAN CORPUSCULAR HGB CONC 34 G/DL (32-36); MEAN CORPUSCULAR VOLUME 88 FL (80-99); MEAN PLATELET VOLUME 10.5 FL (7.4-10.4); MONOCYTES # (AUTO) 0.7 X 10^3 (0.0-1.0); MONOCYTES % (AUTO) 7 % (0-12); NEUTROPHILS # (AUTO) 8.8 X 10^3 (1.8-7.8); NEUTROPHILS % (AUTO) 81 % (42-75); PLATELET COUNT 200 10^3/uL (130-400); RED BLOOD COUNT 4.02 10^6/uL (4.35-5.85); RED CELL DISTRIBUTION WIDTH 15.7 % (10.0-14.5); WHITE BLOOD COUNT 10.9 10^3/uL (4.3-11.0)
[2017-06-02 05:34] LABS: INR 1.1 (0.8-1.4); PROTHROMBIN TIME PATIENT 13.8 SEC (12.2-14.7)
[2017-06-02 05:52] LABS: ALANINE AMINOTRANSFERASE 20 U/L (0-55); ALBUMIN 3.2 GM/DL (3.2-4.5); ANION GAP 12 MMOL/L (5-14); ASPARTATE AMINO TRANSFERASE 17 U/L (5-34); BILIRUBIN,TOTAL 0.6 MG/DL (0.1-1.0); BLOOD UREA NITROGEN 15 MG/DL (7-18); BUN/CREATININE RATIO 16; CARBON DIOXIDE 16 MMOL/L (21-32); CHLORIDE 112 MMOL/L (98-107); CHOLESTEROL 136 MG/DL (< 200); CREATININE SERUM 0.94 MG/DL (0.60-1.30); DIRECT LDL 88 MG/DL (1-129); GFR ESTIMATED > 60; GLUCOSE 109 MG/DL (70-105); MAGNESIUM 1.7 MG/DL (1.8-2.4); PHOSPHORUS 2.9 MG/DL (2.3-4.7); POTASSIUM 3.7 MMOL/L (3.6-5.0); SODIUM 140 MMOL/L (135-145); TOTAL PROTEIN 5.3 GM/DL (6.4-8.2); TRIGLYCERIDES 42 MG/DL (<150); VLDL CHOLESTEROL 8 MG/DL (5-40)
[2017-06-02] MEDS ORDERED: KCL 20 MEQ TAB (K-DUR) PO SCH (06:00)
[2017-06-02] MEDS ORDERED: POTASSIUM CL 10MEQ/50ML IVPB 50 ML IV SCH (06:00)
[2017-06-02] MEDS ORDERED: MAGNESIUM 1 GM/100 ML IVPB 100 ML IV SCH (06:00)
--- NOTE | 2017-06-02 06:31 | Pulmonary Progress Note ---
Subjective Time Seen by Provider: 07:41 Subjective/Events-last exam PT feels improved. No complications noted. Exam Exam Vital Signs Date Time Temp Pulse Resp B/P (MAP) Pulse Ox O2 Delivery O2 Flow Rate FiO2 06/02/17 06:00 62 18 135/76 99 Room Air 06/02/17 05:00 81 25 142/91 97 Room Air 06/02/17 04:00 94 24 148/84 95 Room Air 06/02/17 04:00 97 Room Air 06/02/17 03:00 93 28 153/87 96 Room Air 06/02/17 02:00 88 22 155/89 95 Room Air 06/02/17 01:49 94 Room Air 06/02/17 01:00 92 06/02/17 01:00 89 22 146/77 95 Room Air 06/02/17 00:00 97 Nasal Cannula 3.00 06/02/17 00:00 89 15 141/81 93 Room Air 06/02/17 00:00 98.5 06/01/17 23:00 94 18 130/98 95 Nasal Cannula 1.00 06/01/17 22:00 94 29 140/83 93 Nasal Cannula 1.00 06/01/17 21:12 99 Nasal Cannula 2.00 06/01/17 21:00 92 23 129/76 92 Nasal Cannula 1.00 06/01/17 21:00 Nasal Cannula 1.00 06/01/17 20:00 98 15 134/75 97 Nasal Cannula 3.00 06/01/17 20:00 97 Nasal Cannula 3.00 06/01/17 20:00 97.8 06/01/17 19:30 97.6 Nasal Cannula 3.00 06/01/17 19:00 104 19 122/79 100 Nasal Cannula 3.00 06/01/17 19:00 98 06/01/17 18:24 97 Nasal Cannula 3.00 06/01/17 18:00 97 14 152/90 99 Nasal Cannula 3.00 06/01/17 17:00 96 24 151/92 98 Nasal Cannula 3.00 06/01/17 16:05 97 Nasal Cannula 3.00 06/01/17 16:00 83 20 149/77 99 Nasal Cannula 3.00 06/01/17 15:38 98.4 83 25 134/76 97 Nasal Cannula 3.00 06/01/17 14:56 97 Nasal Cannula 5.00 8/3/17 14:00 120 14 162/100 98 Nasal Cannula 3.00 06/01/17 13:00 115 16 174/99 100 Nasal Cannula 3.00 06/01/17 13:00 115 06/01/17 12:00 116 06/01/17 12:00 Nasal Cannula 3.00 06/01/17 12:00 97.8 116 25 171/95 98 Nasal Cannula 3.00 06/01/17 11:20 96.1 108 27 97 NIV Bilevel 06/01/17 10:21 112 26 98 25.00 06/01/17 10:20 95 3.00 06/01/17 09:45 Nasal Cannula 2.00 87 06/01/17 09:38 97 Nasal Cannula 6.00 06/01/17 09:37 96.1 130 39 170/122 97 Nasal Cannula 6.00 I & O 06/02/17 07:00 Intake Total 6220 ml Output Total 5725 ml Balance 495 ml General Appearance: WD/WN, Chronically ill, Moderate Distress, Obese HEENT: PERRL/EOMI, Normal ENT Inspection, Pharynx Normal Neck: Full Range of Motion, Normal Inspection, Non Tender, Supple, Carotid Bruit Respiratory: Chest Non Tender, Crackles, Decreased Breath Sounds, Rales, Respiratory Distress, Wheezing Cardiovascular: No Gallop, No JVD, No Murmur, Normal Peripheral Pulses, Tachycardia Capillary Refill: Less Than 3 Seconds Peripheral Pulses: 2+ Radial Pulses (R) Extremity: Normal Capillary Refill, Normal Inspection, Normal Range of Motion, Non Tender, No Calf Tenderness, Swelling Neurologic/Psychiatric: Alert, Oriented x3, No Motor/Sensory Deficits, Normal Mood/Affect Skin: Normal Color, Warm/Dry Lymphatic: No Adenopathy Results Lab Laboratory Tests 06/01/17 09:40 06/02/17 05:03 Assessment/Plan Assessment/Plan Respiratory distress secondary to CHF AE - doubt PNA -Cardiology consulted -Echocardiogram Large lung mass TERESA -Will plan on doing bronchoscopy today SIRS r/o sepsis -Will continue Abx and await chaudhry cultures -Secondary to pulmonary edema and doubting infection I am going to stop IVF and start lasix Tobacco dependance -education Pt will need to f/uy with me in 1 wk Clinical Quality Measures DVT/VTE Risk/Contraindication: Risk Factor Score Per Nursin RFS Level Per Nursing on Admit: 4+=Very High EDIL CARDENAS DO Jun 02, 2017 06:31
[2017-06-02] MEDS: NS IV 1000 ML 1,000 ML IV SCH ×2 (07:01→08:35)
[2017-06-02] MEDS ORDERED: fentaNYL INJECTION 100 MCG/2 ML AMP ONE (07:13)
[2017-06-02] MEDS ORDERED: MIDAZOLAM 5 MG/5 ML (VERSED) VIAL ONE (07:13)
--- NOTE | 2017-06-02 07:23 | Pulmonary Procedures ---
Pulmonary Procedures Date of Procedure Date of Service: Jun 02, 2017 Bronch Bronchoscopy with bronchoalveolar lavage (BAL), transbronchial washes and, brushes from [facility] . Preop DX [facility] lung mass per CT scan Postop DX: same No endobronchial mass Complications: none After informed consent obtained and formal time out pt was sedated using Fentanyl and Versed. Bronchoscope was advanced through the nare and vocal cords. 1% lidocaine was used to anesthetize vocal cords, epiglottis, naresh, and left/right main stem bronchus. An anatomical tour was undertaken down to the segmental bronchi bilaterally. No endobronchial lesions noted. From the [facility] a bronchoalveolar lavage (BAL), transbronchial washes and, brushes were obtained. Pt tolerated procedure well. No complications noted. Stat CXR is pending. EDIL CARDENAS DO Jun 02, 2017 07:23
--- NOTE | 2017-06-02 08:11 | Diagnostic Imaging Report ---
EXAMINATION: Portable upright radiograph of the chest. INDICATION: Sepsis. Shortness of breath. FINDINGS: There is a left apical lung mass measuring 3.9 CM. There is slight improvement in pulmonary vascular congestion. A small right pleural effusion is present. There is bibasilar atelectasis or infiltrates. The heart size is normal. IMPRESSION: 1. Improving pulmonary vascular congestion. 2. Small right pleural effusion and bibasilar atelectasis or infiltrates. 3. Left apical lung mass. Dictated by: Dictated on workstation # [id number]
[2017-06-02] MEDS: FUROSEMIDE 40 MG/4 ML INJ (LASIX) IVP SCH (08:27)
[2017-06-02] MEDS: LEVOFLOXACIN 750 MG/150 ML IV 150 ML IV SCH (08:27)
[2017-06-02] MEDS: KCL 20 MEQ TAB (K-DUR) PO SCH (08:27)
[2017-06-02] MEDS: meTOprolol SUCCINATE 100 MG (TOPROL XL) TAB PO SCH (08:27)
[2017-06-02] MEDS: ASPIRIN 325 MG (5 GR) TABLET PO SCH ×2 (08:29→18:19)
--- NOTE | 2017-06-02 08:47 | Progress Note-Cardiology ---
Cardiology SOAP Progress Note Subjective: Sitting up in bed, post bronch. Frequent loose cough. No c/o CP or palpitations. Feels SOB is unchanged. Objective: I&O/Vital Signs Vital Sign - Last 12Hours 06/02/17 06/02/17 06/02/17 06/02/17 03:00 04:00 04:00 05:00 Pulse 93 94 81 Resp 28 24 25 B/P (MAP) 153/87 148/84 142/91 Pulse Ox 96 97 95 97 O2 Delivery Room Air Room Air Room Air Room Air 06/02/17 06/02/17 06/02/17 06/02/17 06:00 07:00 07:00 07:01 Pulse 62 80 80 Resp 18 20 B/P (MAP) 135/76 128/79 Pulse Ox 99 97 98 O2 Delivery Room Air Room Air Nasal Cannula O2 Flow Rate 6.00 06/02/17 06/02/17 06/02/17 06/02/17 08:30 08:33 09:00 10:00 Temp 97.4 Pulse 79 63 91 Resp 18 15 13 B/P (MAP) 110/73 122/71 133/94 Pulse Ox 94 95 97 98 O2 Delivery Room Air OxyMask Room Air Room Air O2 Flow Rate 2.00 06/02/17 06/02/17 06/02/17 06/02/17 11:00 11:34 11:43 12:00 Temp 97.4 Pulse 101 Resp 22 B/P (MAP) 133/93 Pulse Ox 96 97 100 O2 Delivery Room Air Nasal Cannula Nasal Cannula O2 Flow Rate 1.00 3.00 06/02/17 12:00 Pulse 93 Resp 28 B/P (MAP) 132/79 Pulse Ox 97 O2 Delivery Room Air Intake and Output 06/02/17 00:00 Intake Total 4570 ml Output Total 5550 ml Balance -980 ml Weight (Pounds): 167 Weight (Ounces): 2.0 Weight (Calculated Kilograms): 75.752103 Constitutional: appears stated age, No apparent distress, well-developed, well- nourished Respiratory: other (diminished lower lobes bilat; frequent non-productive cough ; crackles lower lobes) Cardiovascular: regular rate-rhythm, No JVD, S1 and S2, systolic murmur Gastrointestional: No tender, soft, round, audible bowel sounds, No spleenomegaly Extremities: No clubbing, No cyanosis, significant edema (R LE edema mod, LLE edema mild) Neurologic/Psychiatric: alert, oriented x 3, other (Right sided weakness ( chronic)) Skin: normal color, warm/dry, other (multiple abrasions with scabbing to his lower extremities and upper arms) Results/Procedures: Labs Laboratory Tests 06/01/17 15:42: Troponin I < 0.30 06/01/17 17:14: Lactic Acid Level 1.81 06/01/17 21:00: Lactic Acid Level 2.27*H 06/01/17 23:06: Lactic Acid Level 1.19 06/02/17 01:04: Lactic Acid Level 1.22 06/02/17 05:03: Lactic Acid Level 0.92, White Blood Count 10.9, Red Blood Count 4.02L, Hemoglobin 11.8#L, Hematocrit 35L, Mean Corpuscular Volume 88, Mean Corpuscular Hemoglobin 29, Mean Corpuscular Hemoglobin Concent 34, Red Cell Distribution Width 15.7H, Platelet Count 200, Mean Platelet Volume 10.5H, Neutrophils (%) ( Auto) 81H, Lymphocytes (%) (Auto) 13, Monocytes (%) (Auto) 7, Eosinophils (%) ( Auto) 0, Basophils (%) (Auto) 0, Neutrophils # (Auto) 8.8H, Lymphocytes # (Auto ) 1.4, Monocytes # (Auto) 0.7, Eosinophils # (Auto) 0.0, Basophils # (Auto) 0.0 , Prothrombin Time 13.8, INR Comment 1.1, Activated Partial Thromboplast Time 33 , Sodium Level 140, Potassium Level 3.7, Chloride Level 112H, Carbon Dioxide Level 16L, Anion Gap 12, Blood Urea Nitrogen 15, Creatinine 0.94, Estimat Glomerular Filtration Rate > 60, BUN/Creatinine Ratio 16, Glucose Level 109H, Calcium Level 8.0L, Phosphorus Level 2.9, Magnesium Level 1.7L, Total Bilirubin 0.6, Aspartate Amino Transf (AST/SGOT) 17, Alanine Aminotransferase (ALT/SGPT) 20, Alkaline Phosphatase 70, Total Protein 5.3L, Albumin 3.2, Triglycerides Level 42, Cholesterol Level 136, LDL Cholesterol Direct 88, VLDL Cholesterol 8, HDL Cholesterol 42, Thyroid Stimulating Hormone (TSH) 2.40 06/02/17 12:00: Vancomycin Level Trough 10.8 Procedures NAME: MARLON GONSALEZ [facility] REC#: [id number] PT STATUS: ADM IN : 1950 PHYSICIAN: EDIL YOUNGER DO ADMIT DATE: 06/01/17/ICU Draft Date of Exam:06/02/17 CHEST 1 VIEW, AP/PA ONLY EXAMINATION: Portable upright radiograph of the chest. INDICATION: Sepsis. Shortness of breath. FINDINGS: There is a left apical lung mass measuring 3.9 CM. There is slight improvement in pulmonary vascular congestion. A small right pleural effusion is present. There is bibasilar atelectasis or infiltrates. The heart size is normal. IMPRESSION: 1. Improving pulmonary vascular congestion. 2. Small right pleural effusion and bibasilar atelectasis or infiltrates. 3. Left apical lung mass. Dictated on workstation # [id number] Dict: 06/02/17714 Trans: 06/02/17 0811 [facility] [id number] Interpreted by: PHOENIX GAGNON MD Electronically signed by: A/P: Assessment: Shortness of breath, etiology undetermined, probably multifactorial, see below Acute systolic CHF. 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 Carpio HTN - improved with addition of BB Lung mass seen on CXR of 06-01-17 - pulmonary services following - s/p bronch on Plan: Complex management issue. Pneumonia with sepsis without hypotension. Management per pulmonary services. Acute CHF of undetermined etiology. Give diuretics and monitor lab. Echocardiogram to evaluate LVEF and structure - pending Uncontrolled hypertension which has improved with addition of BB Lung mass seen on CXR - post bronch on 06-02-[address] Younger Physician Assessment Physician Assessment Lungs: scattered rhonchi, fair to good air entry Cor: reg Ext: no c/c/e A&R * As documented in our note above that I updated (italics) and as described below * Continue diuretics * Replenish Mg * Monitor labs * Add ARB * Choose ARB over MJ-inhib because of cough SANDRA VARELA [facility] Jun 02, 2017 08:47 SOLANGE SILVERIO MD FAC FAC CCDS Jun 02, 2017 14:28
[2017-06-02] MEDS ORDERED: LIDOCAINE PF 1% 2 ML AMP IJ ONE (09:00)
[2017-06-02] MEDS ORDERED: LIDOCAINE 4% INJ (XYLOCAINE) 5ML AMP INJ ONE (09:00)
[2017-06-02] MEDS ORDERED: LIDOCAINE JELLY 2% (XYLOCAINE) 30 ML TUBE TOP ONE (09:00)
[2017-06-02] MEDS: RT-ALBUTEROL/IPRATROPIUM 3 ML (DUONEB) VIAL INH PRN (11:43)
[2017-06-02] MEDS ORDERED: TROUGH ORDER-PHARMACY XX ONE (12:00)
--- NOTE | 2017-06-02 12:09 | Progress Note-Hospitalist ---
Progress Note HPI/CC on Admission CC: Severe Sepsis due to pneumonia and hypoxia HPI: This is a 66-year-old white male that previously had Dr. Jara is a primary care provider but hasn't seen anybody for the past 2 years that presents to the ER with shortness of breath and fever. Apparently this is been going on for several days and he quit smoking 3 days ago but it did not help him. He has evidence of severe sepsis with elevated lactic acid of 2.95 elevated BNP indicating volume overload and probably ischemic cardiomyopathy that cardiology will be consulted and evidence of left upper lobe mass and a smoker's highly suspicious for cancer. I can't obtaining more details because he is short of breath and he will likely need to be intubated. Dr. Younger has been consulted. Progress Notes/Assess & Plan Date Seen 06/02/17 Time Seen by Provider: 11:00 Admission Dx/Process Assessment: Severe sepsis due to pneumonia New left upper lobe lung mass suspicious for cancer in a smoker Elevated BNP consistent with volume overload likely ischemic cardiopathy consulting cardiology Smoker Noncompliant with medical treatment Diagonsis/Assessment & Plan Patient doing much better and now 1 L of oxygen is maintained Transferring to floor Updated the patient and family member regarding all the results that I have on hand Echocardiogram shows 45 percent ejection fraction but will have cardiology educate him on those results Bronchoscopy today may not yield cytology results and may need CT needle biopsy Antibiotics are maintained Nebulizer treatments are helpful No fever, vital signs stable, pleasant, improved Regular rate and rhythm, clear to auscultation bilaterally except for subtle wheeze in the bases but much improved from yesterday and no tachypnea now Noted 1+ edema Laboratory Tests 06/02/17 05:03 Assessment: Severe sepsis due to pneumonia s/p IVF per protocol now resolved New left upper lobe lung mass suspicious for cancer in a smoker s/p bronchoscopy today and cytology pending but likely will need needle bx Elevated BNP consistent with volume overload due to ischemic cardiopathy EF 45% on ECHO Smoker Noncompliant with medical treatment Presumed COPD Plan: Nebulizer treatments Oxygen supplementation Pain medication Empiric antibiotics Await bronch cytology I appreciate cardiology and pulmonology critical care consultations Home O2 evaluation if able to be DC this weekend. JOSE AYALA DO Jun 02, 2017 12:09
[2017-06-02] MEDS ORDERED: LOSARTAN 25 MG (COZAAR) TAB PO NR (14:30)
[2017-06-02] MEDS ORDERED: MAGNESIUM 1 GM/100 ML IVPB 100 ML IV NR (15:30)
[2017-06-03] VITALS (7 sets, daily range): BP systolic 110–133; BP diastolic 61–80
[2017-06-03] MEDS: VANCOMYCIN INJECTION 1,000 MG in NS (IVPB) 250 ML IV SCH (00:19)
[2017-06-03] MEDS: PIPERACILLIN SODIUM/TAZOBACTAM 4.5 GM in NS (IVPB) 100 ML IV SCH ×3 (01:41→17:34)
[2017-06-03] MEDS: RT-ALBUTEROL/IPRATROPIUM 3 ML (DUONEB) VIAL INH SCH ×6 (02:30→22:05)
[2017-06-03 05:34] LABS: BASOPHILS # (AUTO) 0.1 10^3/uL (0.0-0.1); BASOPHILS % (AUTO) 1 % (0-10); EOSINOPHILS # (AUTO) 0.2 10^3/uL (0.0-0.3); EOSINOPHILS % (AUTO) 2 % (0-10); LYMPHOCYTES # (AUTO) 2.2 X 10^3 (1.0-4.0); LYMPHOCYTES % (AUTO) 23 % (12-44); MEAN CORPUSCULAR HEMOGLOBIN 29 PG (25-34); MEAN CORPUSCULAR HGB CONC 33 G/DL (32-36); MEAN CORPUSCULAR VOLUME 88 FL (80-99); MEAN PLATELET VOLUME 10.8 FL (7.4-10.4); MONOCYTES # (AUTO) 0.7 X 10^3 (0.0-1.0); MONOCYTES % (AUTO) 7 % (0-12); NEUTROPHILS # (AUTO) 6.6 X 10^3 (1.8-7.8); NEUTROPHILS % (AUTO) 68 % (42-75); PLATELET COUNT 201 10^3/uL (130-400); RED BLOOD COUNT 4.24 10^6/uL (4.35-5.85); RED CELL DISTRIBUTION WIDTH 16.2 % (10.0-14.5); WHITE BLOOD COUNT 9.7 10^3/uL (4.3-11.0)
[2017-06-03] MEDS: KCL 20 MEQ TAB (K-DUR) PO SCH (06:00)
[2017-06-03] MEDS: ASPIRIN 325 MG (5 GR) TABLET PO SCH ×2 (06:00→17:35)
[2017-06-03 06:21] LABS: ALANINE AMINOTRANSFERASE 24 U/L (0-55); ALBUMIN 3.3 GM/DL (3.2-4.5); ANION GAP 11 MMOL/L (5-14); ASPARTATE AMINO TRANSFERASE 22 U/L (5-34); BILIRUBIN,TOTAL 0.9 MG/DL (0.1-1.0); BLOOD UREA NITROGEN 18 MG/DL (7-18); BUN/CREATININE RATIO 15; CALCIUM 8.2 MG/DL (8.5-10.1); CARBON DIOXIDE 19 MMOL/L (21-32); CHLORIDE 110 MMOL/L (98-107); CREATININE SERUM 1.18 MG/DL (0.60-1.30); GFR ESTIMATED > 60; GLUCOSE 79 MG/DL (70-105); POTASSIUM 3.6 MMOL/L (3.6-5.0); SODIUM 140 MMOL/L (135-145); TOTAL PROTEIN 5.7 GM/DL (6.4-8.2)
[2017-06-03] MEDS: LEVOFLOXACIN 750 MG/150 ML IV 150 ML IV SCH (09:11)
[2017-06-03] MEDS: FUROSEMIDE 40 MG/4 ML INJ (LASIX) IVP SCH (09:12)
[2017-06-03] MEDS: meTOprolol SUCCINATE 100 MG (TOPROL XL) TAB PO SCH (09:13)
[2017-06-03] MEDS: LOSARTAN 25 MG (COZAAR) TAB PO SCH (09:13)
--- NOTE | 2017-06-03 11:30 | Progress Note-Hospitalist ---
Progress Note HPI/CC on Admission CC: Severe Sepsis due to pneumonia and hypoxia HPI: This is a 66-year-old white male that previously had Dr. Jara is a primary care provider but hasn't seen anybody for the past 2 years that presents to the ER with shortness of breath and fever. Apparently this is been going on for several days and he quit smoking 3 days ago but it did not help him. He has evidence of severe sepsis with elevated lactic acid of 2.95 elevated BNP indicating volume overload and probably ischemic cardiomyopathy that cardiology will be consulted and evidence of left upper lobe mass and a smoker's highly suspicious for cancer. I can't obtaining more details because he is short of breath and he will likely need to be intubated. Dr. Younger has been consulted. Progress Notes/Assess & Plan Date Seen 06/03/17 Time Seen by Provider: 10:00 Admission Dx/Process Assessment: Severe sepsis due to pneumonia New left upper lobe lung mass suspicious for cancer in a smoker Elevated BNP consistent with volume overload likely ischemic cardiopathy consulting cardiology Smoker Noncompliant with medical treatment Diagonsis/Assessment & Plan Patient doing much better and now off oxygen but RT will perform walking test to evaluate the need for home O2 to confirm Antibiotics are maintained triple therapy so will minimize today Nebulizer treatments are helpful [facility] [place] will be his pharmacy since he has a discount card BM+ No fever, vital signs stable, pleasant, improved Regular rate and rhythm, clear to auscultation bilaterally and all wheezes are resolved Noted 1+ edema Laboratory Tests 06/03/17 05:00 Assessment: Severe sepsis due to pneumonia s/p IVF per protocol now resolved New left upper lobe lung mass suspicious for cancer in a smoker s/p bronchoscopy yesterday and cytology pending but likely will need needle bx Elevated BNP consistent with volume overload due to ischemic cardiopathy EF 45% on ECHO Smoker Noncompliant with medical treatment Presumed COPD Plan: Nebulizer treatments Oxygen supplementation and will have walk test tomorrow by RT Pain medication Narrow antibiotics today Await bronch cytology I appreciate cardiology and pulmonology critical care consultations JOSE AYALA DO Jun 03, 2017 11:30
--- NOTE | 2017-06-03 12:48 | Cardiology Progress Note ---
Cardiology SOAP Progress Note Subjective: no cardiac complaints Objective: I&O/Vital Signs Vital Sign - Last 12Hours 06/03/17 06/03/17 06/03/17 06/03/17 02:31 04:00 06:52 08:00 Temp 97.6 97.8 Pulse 80 83 Resp 18 20 B/P (MAP) 125/61 129/78 Pulse Ox 90 94 97 95 O2 Delivery Room Air Room Air Room Air Room Air 06/03/17 06/03/17 08:00 10:25 Pulse Ox 92 O2 Delivery Room Air Room Air O2 Flow Rate 2.00 Intake and Output 06/03/17 00:00 Intake Total 870 ml Output Total 3975 ml Balance -3105 ml Weight (Pounds): 167 Weight (Ounces): 2.0 Weight (Calculated Kilograms): 75.328889 Constitutional: appears stated age, No apparent distress, well-developed, well- nourished Respiratory: other (diminished lower lobes bilat; frequent non-productive cough ; crackles lower lobes) Cardiovascular: regular rate-rhythm, No JVD, S1 and S2, systolic murmur Gastrointestional: No tender, soft, round, audible bowel sounds, No spleenomegaly Extremities: No clubbing, No cyanosis, significant edema (R LE edema mod, LLE edema mild) Neurologic/Psychiatric: alert, oriented x 3, other (Right sided weakness ( chronic)) Skin: normal color, warm/dry Results/Procedures: Labs Laboratory Tests 06/03/17 05:00: White Blood Count 9.7, Red Blood Count 4.24L, Hemoglobin 12.4L, Hematocrit 38L, Mean Corpuscular Volume 88, Mean Corpuscular Hemoglobin 29, Mean Corpuscular Hemoglobin Concent 33, Red Cell Distribution Width 16.2H, Platelet Count 201, Mean Platelet Volume 10.8H, Neutrophils (%) (Auto) 68, Lymphocytes (%) (Auto) 23 , Monocytes (%) (Auto) 7, Eosinophils (%) (Auto) 2, Basophils (%) (Auto) 1, Neutrophils # (Auto) 6.6, Lymphocytes # (Auto) 2.2, Monocytes # (Auto) 0.7, Eosinophils # (Auto) 0.2, Basophils # (Auto) 0.1, Sodium Level 140, Potassium Level 3.6, Chloride Level 110H, Carbon Dioxide Level 19L, Anion Gap 11, Blood Urea Nitrogen 18, Creatinine 1.18, Estimat Glomerular Filtration Rate > 60, BUN/ Creatinine Ratio 15, Glucose Level 79, Calcium Level 8.2L, Magnesium Level 2.0, Total Bilirubin 0.9, Aspartate Amino Transf (AST/SGOT) 22, Alanine Aminotransferase (ALT/SGPT) 24, Alkaline Phosphatase 66, Total Protein 5.7L, Albumin 3.3 Microbiology 06/01/17 Blood Culture - Preliminary, Resulted No growth A/P: Assessment/Dx: Shortness of breath, etiology undetermined, probably multifactorial, see below Acute systolic CHF. 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 Carpio HTN - improved with addition of BB Lung mass seen on CXR of 06-01-17 - pulmonary services following - s/p bronch on Plan: Complex management issue. Pneumonia with sepsis without hypotension. Management per pulmonary services. Acute CHF of undetermined etiology. Give diuretics and monitor lab. ARB Echocardiogram to evaluate LVEF and structure Uncontrolled hypertension which has improved with addition of BB Lung mass seen on CXR - post bronch on 06-02-[address] Younger Thank you for your consultation. Please call me if you have any questions. Kaya Larios MD, FACP, FACC, FSCAI, FHRS, CCDS Interventional Cardiology Cardiac Electrophysiology Vascular Medicine and Endovascular Interventions Linsey LARIOS MD Jun 03, 2017 12:48 pm
[2017-06-03] MEDS ORDERED: MAGNESIUM 1 GM/100 ML IVPB 100 ML IV ONE (14:30)
[2017-06-04] VITALS (7 sets, daily range): BP systolic 124–136; BP diastolic 64–87
[2017-06-04] MEDS: RT-ALBUTEROL/IPRATROPIUM 3 ML (DUONEB) VIAL INH SCH ×6 (02:20→22:19)
[2017-06-04] MEDS: PIPERACILLIN SODIUM/TAZOBACTAM 4.5 GM in NS (IVPB) 100 ML IV SCH ×3 (02:24→16:57)
[2017-06-04 05:52] LABS: BASOPHILS # (AUTO) 0.1 10^3/uL (0.0-0.1); BASOPHILS % (AUTO) 1 % (0-10); EOSINOPHILS # (AUTO) 0.5 10^3/uL (0.0-0.3); EOSINOPHILS % (AUTO) 5 % (0-10); LYMPHOCYTES # (AUTO) 2.3 X 10^3 (1.0-4.0); LYMPHOCYTES % (AUTO) 26 % (12-44); MEAN CORPUSCULAR HEMOGLOBIN 29 PG (25-34); MEAN CORPUSCULAR HGB CONC 33 G/DL (32-36); MEAN CORPUSCULAR VOLUME 88 FL (80-99); MONOCYTES # (AUTO) 0.7 X 10^3 (0.0-1.0); MONOCYTES % (AUTO) 7 % (0-12); NEUTROPHILS # (AUTO) 5.3 X 10^3 (1.8-7.8); NEUTROPHILS % (AUTO) 60 % (42-75); PLATELET COUNT 211 10^3/uL (130-400); RED BLOOD COUNT 4.23 10^6/uL (4.35-5.85); RED CELL DISTRIBUTION WIDTH 16.1 % (10.0-14.5); WHITE BLOOD COUNT 8.8 10^3/uL (4.3-11.0)
[2017-06-04 06:14] LABS: ALBUMIN 3.1 GM/DL (3.2-4.5); BILIRUBIN,TOTAL 0.7 MG/DL (0.1-1.0); CALCIUM 8.6 MG/DL (8.5-10.1); CREATININE SERUM 1.35 MG/DL (0.60-1.30); TOTAL PROTEIN 4.7 GM/DL (6.4-8.2)
[2017-06-04] MEDS: ASPIRIN 325 MG (5 GR) TABLET PO SCH ×2 (07:15→16:57)
[2017-06-04] MEDS: KCL 20 MEQ TAB (K-DUR) PO SCH (07:15)
[2017-06-04] MEDS: LOSARTAN 25 MG (COZAAR) TAB PO SCH (09:00)
[2017-06-04] MEDS: meTOprolol SUCCINATE 100 MG (TOPROL XL) TAB PO SCH (09:00)
[2017-06-04] MEDS: FUROSEMIDE 40 MG/4 ML INJ (LASIX) IVP SCH (09:00)
--- NOTE | 2017-06-04 11:51 | Progress Note-Hospitalist ---
Progress Note HPI/CC on Admission CC: Severe Sepsis due to pneumonia and hypoxia HPI: This is a 66-year-old white male that previously had Dr. Jara is a primary care provider but hasn't seen anybody for the past 2 years that presents to the ER with shortness of breath and fever. Apparently this is been going on for several days and he quit smoking 3 days ago but it did not help him. He has evidence of severe sepsis with elevated lactic acid of 2.95 elevated BNP indicating volume overload and probably ischemic cardiomyopathy that cardiology will be consulted and evidence of left upper lobe mass and a smoker's highly suspicious for cancer. I can't obtaining more details because he is short of breath and he will likely need to be intubated. Dr. Younger has been consulted. Progress Notes/Assess & Plan Date Seen 06/04/17 Time Seen by Provider: 11:00 Admission Dx/Process Assessment: Severe sepsis due to pneumonia New left upper lobe lung mass suspicious for cancer in a smoker Elevated BNP consistent with volume overload likely ischemic cardiopathy consulting cardiology Smoker Noncompliant with medical treatment Diagonsis/Assessment & Plan Patient doing much better and now off oxygen and RT performed walking test to evaluate the need for home O2 and does not need home O2 Antibiotics were narrowed Nebulizer treatments are helpful [facility] [place] will be his pharmacy since he has a discount card BM+ Wants Lasix changed so he doesn't have to urinate so much No fever, vital signs stable, pleasant, improved Regular rate and rhythm, clear to auscultation bilaterally and all wheezes are resolved Noted 1+ edema Laboratory Tests 06/04/17 05:05 Assessment: Severe sepsis due to pneumonia s/p IVF per protocol now resolved New left upper lobe lung mass suspicious for cancer in a smoker s/p bronchoscopy yesterday and cytology pending but likely will need needle bx Elevated BNP consistent with volume overload due to ischemic cardiopathy EF 45% on ECHO Smoker Noncompliant with medical treatment Presumed COPD Plan: Nebulizer treatments Pain medication Await bronch cytology I appreciate cardiology and pulmonology critical care consultations DC home tomorrow with close f/u for lung mass biopsy JOSE AYALA DO Jun 04, 2017 11:51
[2017-06-05] VITALS: BP 139/66
[2017-06-05] MEDS: PIPERACILLIN SODIUM/TAZOBACTAM 4.5 GM in NS (IVPB) 100 ML IV SCH ×2 (01:15→09:21)
[2017-06-05] MEDS: RT-ALBUTEROL/IPRATROPIUM 3 ML (DUONEB) VIAL INH SCH ×2 (02:18→06:45)
[2017-06-05 04:00] VITALS: BP 125/66
[2017-06-05 05:31] LABS: BASOPHILS # (AUTO) 0.1 10^3/uL (0.0-0.1); BASOPHILS % (AUTO) 1 % (0-10); EOSINOPHILS # (AUTO) 0.6 10^3/uL (0.0-0.3); EOSINOPHILS % (AUTO) 6 % (0-10); LYMPHOCYTES # (AUTO) 2.4 X 10^3 (1.0-4.0); LYMPHOCYTES % (AUTO) 27 % (12-44); MEAN CORPUSCULAR HEMOGLOBIN 30 PG (25-34); MEAN CORPUSCULAR HGB CONC 34 G/DL (32-36); MEAN CORPUSCULAR VOLUME 87 FL (80-99); MEAN PLATELET VOLUME 10.5 FL (7.4-10.4); MONOCYTES # (AUTO) 0.7 X 10^3 (0.0-1.0); MONOCYTES % (AUTO) 7 % (0-12); NEUTROPHILS # (AUTO) 5.4 X 10^3 (1.8-7.8); NEUTROPHILS % (AUTO) 59 % (42-75); PLATELET COUNT 216 10^3/uL (130-400); RED CELL DISTRIBUTION WIDTH 15.8 % (10.0-14.5); WHITE BLOOD COUNT 9.1 10^3/uL (4.3-11.0)
[2017-06-05 06:09] LABS: ALBUMIN 3.1 GM/DL (3.2-4.5); BILIRUBIN,TOTAL 0.8 MG/DL (0.1-1.0); CALCIUM 8.2 MG/DL (8.5-10.1); CREATININE SERUM 1.27 MG/DL (0.60-1.30); POTASSIUM 3.4 MMOL/L (3.6-5.0); TOTAL PROTEIN 5.4 GM/DL (6.4-8.2)
[2017-06-05] MEDS: ASPIRIN 325 MG (5 GR) TABLET PO SCH (06:31)
[2017-06-05] MEDS: KCL 20 MEQ TAB (K-DUR) PO SCH (06:31)
[2017-06-05 08:00] VITALS: BP 159/87
--- NOTE | 2017-06-05 08:32 | Pulmonary Progress Note ---
Subjective Time Seen by Provider: 08:32 Exam Exam Vital Signs Date Time Temp Pulse Resp B/P (MAP) Pulse Ox O2 Delivery O2 Flow Rate FiO2 06/05/17 06:47 94 Room Air 06/05/17 04:00 97.8 81 20 125/66 91 Room Air 06/05/17 02:18 90 Room Air 06/05/17 00:00 98.2 72 20 139/66 97 Room Air 06/04/17 22:19 93 Room Air 06/04/17 20:30 Room Air 06/04/17 20:15 98.2 79 20 128/74 93 Room Air 06/04/17 18:53 93 Room Air 06/04/17 16:37 99.1 72 20 136/74 95 Room Air 06/04/17 15:03 94 Room Air 06/04/17 12:00 98.3 75 20 128/79 95 Room Air 06/04/17 10:40 92 Room Air 06/04/17 09:52 Room Air I & O 06/05/17 07:00 Intake Total 1240 ml Output Total 3825 ml Balance -2585 ml General Appearance: WD/WN, Severe Distress HEENT: PERRL/EOMI, Normal ENT Inspection Neck: Full Range of Motion, Normal Inspection, Non Tender, Supple, Carotid Bruit Respiratory: Lungs Clear, Normal Breath Sounds, No Accessory Muscle Use, No Respiratory Distress Cardiovascular: No Murmur, Tachycardia, Other (bilateral lower extremity pitting edema) Capillary Refill: Less Than 3 Seconds Peripheral Pulses: 2+ Radial Pulses (R) Extremity: Pedal Edema, Swelling, Other (few excoriated sores on the lower extremities) Neurologic/Psychiatric: Alert, Oriented x3, No Motor/Sensory Deficits, Normal Mood/Affect, structural rigger II-XII Norm as Tested Skin: Normal Color, Warm/Dry Lymphatic: No Adenopathy Results Lab Laboratory Tests 06/04/17 05:05 06/05/17 05:21 Assessment/Plan Assessment/Plan Respiratory distress secondary to CHF AE - doubt PNA -Cardiology consulted -Echocardiogram Large lung mass TERESA -S/P bronchoscopy-- await cytology -IF cytology is negative pt will need CT bx of lung mass- this can be done as an outpatient. Pneumonia -D/C Zosyn after today's dose this is total of 5 days of abx Tobacco dependance -education Pt will need to f/u with me in 1 wk after discharge PT is ok for discharge from pulmonary standpoint today without Abx or steroids. Clinical Quality Measures DVT/VTE Risk/Contraindication: Risk Factor Score Per Nursin RFS Level Per Nursing on Admit: 4+=Very High EDIL CARDENAS DO Jun 05, 2017 08:32
--- NOTE | 2017-06-05 08:42 | Progress Note-Cardiology ---
Cardiology SOAP Progress Note Subjective: Sitting up in the side of the bed. States he wants to go home today. Denies and c/o CP, palpitations, syncope or near syncope. Objective: I&O/Vital Signs Vital Sign - Last 12Hours 06/04/17 06/05/17 06/05/17 06/05/17 22:19 00:00 02:18 04:00 Temp 98.2 97.8 Pulse 72 81 Resp 20 20 B/P (MAP) 139/66 125/66 Pulse Ox 93 97 90 91 O2 Delivery Room Air Room Air Room Air Room Air 06/05/17 06/05/17 06:47 08:00 Temp 98.3 Pulse 90 Resp 20 B/P (MAP) 159/87 Pulse Ox 94 95 O2 Delivery Room Air Room Air Intake and Output 06/05/17 00:00 Intake Total 1090 ml Output Total 2925 ml Balance -1835 ml Weight (Pounds): 168 Weight (Ounces): 10.0 Weight (Calculated Kilograms): 76.695430 Constitutional: appears stated age, No apparent distress, well-developed, well- nourished Respiratory: No accessory muscle use, No respiratory distress, other ( diminished lower lobes bilat; prolonged expiratory phase) Cardiovascular: regular rate-rhythm, No JVD, S1 and S2, systolic murmur Gastrointestional: No tender, soft, round, audible bowel sounds, No spleenomegaly Extremities: No clubbing, No cyanosis, No significant edema Neurologic/Psychiatric: alert, oriented x 3, other (Right sided weakness ( chronic)) Skin: normal color, warm/dry Results/Procedures: Labs Laboratory Tests 06/05/17 05:21: White Blood Count 9.1, Red Blood Count 4.30L, Hemoglobin 12.7L, Hematocrit 38L, Mean Corpuscular Volume 87, Mean Corpuscular Hemoglobin 30, Mean Corpuscular Hemoglobin Concent 34, Red Cell Distribution Width 15.8H, Platelet Count 216, Mean Platelet Volume 10.5H, Neutrophils (%) (Auto) 59, Lymphocytes (%) (Auto) 27 , Monocytes (%) (Auto) 7, Eosinophils (%) (Auto) 6, Basophils (%) (Auto) 1, Neutrophils # (Auto) 5.4, Lymphocytes # (Auto) 2.4, Monocytes # (Auto) 0.7, Eosinophils # (Auto) 0.6H, Basophils # (Auto) 0.1, Sodium Level 139, Potassium Level 3.4L, Chloride Level 109H, Carbon Dioxide Level 20L, Anion Gap 10, Blood Urea Nitrogen 17, Creatinine 1.27, Estimat Glomerular Filtration Rate 57, BUN/ Creatinine Ratio 13, Glucose Level 83, Calcium Level 8.2L, Total Bilirubin 0.8, Aspartate Amino Transf (AST/SGOT) 16, Alanine Aminotransferase (ALT/SGPT) 23, Alkaline Phosphatase 61, Total Protein 5.4L, Albumin 3.1L Microbiology 06/01/17 Blood Culture - Preliminary, Resulted No growth 06/02/17 Mycobacterial Culture - Preliminary, Resulted A/P: Assessment: Shortness of breath, etiology undetermined, probably multifactorial, see below Acute systolic CHF. 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 Carpio HTN - improved with addition of BB Lung mass seen on CXR of 06-01-17 - pulmonary services following - s/p bronch on Plan: Pneumonia - resolving - management per medical services Systolic CHF - clinically compensated Mild hypokalemia - replace Lung mass seen on CXR - post bronch on 06-02-[address] Younger Advise continuation of current medications Advised compliance with medications and medical instructions Advise out pt f/u in 2 weeks as outpt Physician Assessment Physician Assessment Lungs: good bilat air entry Cor: reg Ext: no c/c/e A&R * As documented in our note above that I updated (italics) and as noted belos * I did explain to him again the finding of cardiomyopathy and advised further w /u as outpatient. I advised smoking cessation and answered questions SANDRA VARELA [facility] Jun 05, 2017 08:42 SOLANGE SILVERIO MD [facility] Jun 05, 2017 09:17
[2017-06-05] MEDS ORDERED: METO-274 PO (08:45)
[2017-06-05] MEDS ORDERED: FURO40TA4 PO (08:45)
[2017-06-05] MEDS ORDERED: LOSA25TA21 PO (08:45)
[2017-06-05] MEDS ORDERED: POTA20TA8 PO (08:45)
[2017-06-05] MEDS ORDERED: KCL 10 MEQ TAB (MICRO K) PO NR (09:00)
[2017-06-05] MEDS ORDERED: FUROSEMIDE 40 MG (LASIX) TAB PO SCH (09:00)
[2017-06-05] MEDS: LOSARTAN 25 MG (COZAAR) TAB PO SCH (09:23)
[2017-06-05] MEDS: meTOprolol SUCCINATE 100 MG (TOPROL XL) TAB PO SCH (09:24)
--- NOTE | 2017-06-05 09:47 | Discharge Summary-Hospitalist ---
Diagnosis/Chief Complaint Date of Admission Jun 01, 2017 at 10:45 Date of Discharge Discharge Date: Jun 05, 2017 Admission Diagnosis Assessment: Severe sepsis due to pneumonia New left upper lobe lung mass suspicious for cancer in a smoker Elevated BNP consistent with volume overload likely ischemic cardiopathy consulting cardiology Smoker Noncompliant with medical treatment Discharge Diagnosis Patient doing much better and now off oxygen and RT performed walking test to evaluate the need for home O2 and does not need home O2 Antibiotics were narrowed Nebulizer treatments are helpful [facility] will be his pharmacy since he has a discount card BM+ Wants Lasix changed so he doesn't have to urinate so much No fever, vital signs stable, pleasant, improved Regular rate and rhythm, clear to auscultation bilaterally and all wheezes are resolved Noted 1+ edema Laboratory Tests 06/04/17 05:05 Assessment: Severe sepsis due to pneumonia s/p IVF per protocol now resolved New left upper lobe lung mass suspicious for cancer in a smoker s/p bronchoscopy yesterday and cytology pending but likely will need needle bx Elevated BNP consistent with volume overload due to ischemic cardiopathy EF 45% on ECHO Smoker Noncompliant with medical treatment Presumed COPD Plan: Nebulizer treatments Pain medication Await bronch cytology I appreciate cardiology and pulmonology critical care consultations DC home tomorrow with close f/u for lung mass biopsy Discharge Summary Discharge Physical Examination Allergies: Coded Allergies: No Known Drug Allergies (Unverified , 11/07/12) Vitals & I&Os Vital Signs Date Time Temp Pulse Resp B/P (MAP) Pulse Ox O2 Delivery O2 Flow Rate FiO2 06/05/17 11:09 Room Air 2.00 06/05/17 10:47 06/05/17 08:00 98.3 90 20 95 06/01/17 09:45 87 Hospital Course Assessment: Severe sepsis due to pneumonia s/p IVF per protocol now resolved New left upper lobe lung mass suspicious for cancer in a smoker s/p bronchoscopy yesterday and cytology pending but likely will need needle bx Elevated BNP consistent with volume overload due to ischemic cardiopathy EF 45% on ECHO Smoker Noncompliant with medical treatment Presumed COPD Hospital course: patient had a lengthy hospital course that began in the ER w/ sepsis dx for pneumonia along with congestive heart failure with volume overload with elevated BNP prompting Cardiology consultation along with aggressive IVF for treatment of severe sepsis. Zosyn was empirically started and tolerated well while completing the abx course while in-pt. Smoking cessation was counseled. Lung mass was noted and bronchoscopy was performed but likely will need CT guided needle biopsy to confirm the suspicion of lung cancer in a heavy smoker. Lasix was given for diuresis and BM regimen was initiated due to severe constipation. Labs were monitored closely and stabilized. He was stable at time of DC and did not meet criteria for home O2. He had completed abx while hospitalized so he did not require PO abx. Overall prognosis is poor given the fact of lung mass likely cancer and continued smoker with CHF dx. Labs (last 24 hrs) Laboratory Tests 06/05/17 05:21: White Blood Count 9.1, Red Blood Count 4.30L, Hemoglobin 12.7L, Hematocrit 38L, Mean Corpuscular Volume 87, Mean Corpuscular Hemoglobin 30, Mean Corpuscular Hemoglobin Concent 34, Red Cell Distribution Width 15.8H, Platelet Count 216, Mean Platelet Volume 10.5H, Neutrophils (%) (Auto) 59, Lymphocytes (%) (Auto) 27 , Monocytes (%) (Auto) 7, Eosinophils (%) (Auto) 6, Basophils (%) (Auto) 1, Neutrophils # (Auto) 5.4, Lymphocytes # (Auto) 2.4, Monocytes # (Auto) 0.7, Eosinophils # (Auto) 0.6H, Basophils # (Auto) 0.1, Sodium Level 139, Potassium Level 3.4L, Chloride Level 109H, Carbon Dioxide Level 20L, Anion Gap 10, Blood Urea Nitrogen 17, Creatinine 1.27, Estimat Glomerular Filtration Rate 57, BUN/ Creatinine Ratio 13, Glucose Level 83, Calcium Level 8.2L, Total Bilirubin 0.8, Aspartate Amino Transf (AST/SGOT) 16, Alanine Aminotransferase (ALT/SGPT) 23, Alkaline Phosphatase 61, Total Protein 5.4L, Albumin 3.1L Microbiology 06/01/17 Blood Culture - Preliminary, Resulted No growth 06/02/17 Mycobacterial Culture - Preliminary, Resulted Pending Labs Discharge Home Medications: Active Scripts Active Furosemide 40 Mg Tablet 40 Mg PO DAILY Klor-Con M20 (Potassium Chloride) 20 Meq Tab.er.prt 20 Meq PO DAILY@0700 Losartan Potassium 25 Mg Tablet 25 Mg PO DAILY Metoprolol Succinate 100 Mg Tab.er.24h 100 Mg PO DAILY Reported Aspirin 325 Mg Tab (Aspirin) 325 Mg Tab 325 Mg PO BID Instructions to patient/family Please see electonic discharge instructions given to patient. Clinical Quality Measures DVT/VTE Risk/Contraindication: Risk Factor Score Per Nursin RFS Level Per Nursing on Admit: 4+=Very High JOSE AYALA DO Jun 05, 2017 09:47
== END 2017-06-05 09:36 | disposition home or self-care (01) | DRG 853 ==
LOC: EDUNIT# 09:37 → ER 09:39 → ICU 10:45 → 4TH 06-02 14:56
PROVIDERS: ADMIT Internal Medicine; ATTEND Internal Medicine
PROC: 0B9 Respiratory System, Drainage (ICD-10-PCS; principal; 2017-06-02)
DX: A41.9 Sepsis, unspecified organism (principal); R65.20 Severe sepsis without septic shock; J18.9 Pneumonia, unspecified organism; I69.351 Hemiplegia and hemiparesis following cerebral infarction affecting right dominant side; I50.21 Acute systolic (congestive) heart failure; R91.8 Other nonspecific abnormal finding of lung field; I25.5 Ischemic cardiomyopathy; F17.210 Nicotine dependence, cigarettes, uncomplicated; Z91.19 Patient's noncompliance with other medical treatment and regimen; J44.9 Chronic obstructive pulmonary disease, unspecified; I10 Essential (primary) hypertension; M41.9 Scoliosis, unspecified; I73.9 Peripheral vascular disease, unspecified; I65.22 Occlusion and stenosis of left carotid artery
CPT/HCPCS: 36415; 71010; 71275; 80053; 80061; 80202; 82805; 83605; 83735; 83874; 83880; 84100; 84443; 84484; 85025; 85610; 85730; 86141; 87040; 87070; 87101; 87116; 87205; 88112; 88305; 88312; 93005; 93041; 93306; 94640; 94760; 94761; 96365; 96375

== ENCOUNTER 2017-07-29 00:10 | Inpatient (IN) | payer OTHER ==
[~2017-07-29] VITALS: Ht 180.3 cm; Wt 76.9 kg
[2017-07-29] VITALS (9 sets, daily range): BP systolic 96–181; BP diastolic 64–105
[~2017-07-29 00:10] MED LIST changes: +FURO40TA4 PO; +LOSA25TA21 PO; +METO-274 PO; +POTA20TA8 PO; -RT-ALBUTEROL/IPRATROPIUM 3 ML (DUONEB) VIAL ONE
[2017-07-29] MEDS ORDERED: NS IV 1000 ML 1,000 ML IV ONE ×2 (00:22→01:46)
[2017-07-29] MEDS ORDERED: fentaNYL INJECTION 100 MCG/2 ML AMP IVP ONE ×3 (00:30→02:00)
[2017-07-29 00:44] LABS: BASOPHILS # (AUTO) 0.1 10^3/uL (0.0-0.1); BASOPHILS % (AUTO) 0 % (0-10); EOSINOPHILS # (AUTO) 0.2 10^3/uL (0.0-0.3); EOSINOPHILS % (AUTO) 1 % (0-10); LYMPHOCYTES # (AUTO) 7.2 X 10^3 (1.0-4.0); LYMPHOCYTES % (AUTO) 30 % (12-44); MEAN CORPUSCULAR HEMOGLOBIN 29 PG (25-34); MEAN CORPUSCULAR HGB CONC 33 G/DL (32-36); MEAN CORPUSCULAR VOLUME 90 FL (80-99); MEAN PLATELET VOLUME 11.1 FL (7.4-10.4); MONOCYTES # (AUTO) 1.9 X 10^3 (0.0-1.0); MONOCYTES % (AUTO) 8 % (0-12); NEUTROPHILS # (AUTO) 14.9 X 10^3 (1.8-7.8); NEUTROPHILS % (AUTO) 62 % (42-75); PLATELET COUNT 284 10^3/uL (130-400); RED CELL DISTRIBUTION WIDTH 15.8 % (10.0-14.5); WHITE BLOOD COUNT 24.2 10^3/uL (4.3-11.0)
[2017-07-29 00:53] LABS: INR 1.1 (0.8-1.4); PROTHROMBIN TIME PATIENT 14.3 SEC (12.2-14.7)
[2017-07-29 01:00] LABS: BAND NEUTROPHILS 0 %; BASOPHILS % (MANUAL) 0 %; EOSINOPHILS % (MANUAL) 0 %; LYMPHOCYTES % (MANUAL) 29 %; NEUTROPHILS % (MANUAL) 66 %
[2017-07-29 01:01] LABS: ANISOCYTOSIS SLIGHT
[2017-07-29 01:03] LABS: ALBUMIN 3.6 GM/DL (3.2-4.5); BILIRUBIN,TOTAL 0.9 MG/DL (0.1-1.0); CALCIUM 9.9 MG/DL (8.5-10.1); CREATININE SERUM 1.63 MG/DL (0.60-1.30); POTASSIUM 3.6 MMOL/L (3.6-5.0); TOTAL PROTEIN 6.6 GM/DL (6.4-8.2); hs C REACTIVE PROTEIN 0.89 MG/DL (0.00-0.50)
[2017-07-29] MEDS ORDERED: cefTRIAXone INJECTION 1,000 MG in NS (IVPB) 50 ML IV ONE (01:30)
[2017-07-29] MEDS ORDERED: NS IV 500 ML 500 ML IV ONE (01:58)
[2017-07-29] MEDS ORDERED: VANCOMYCIN INJECTION 1,000 MG in NS (IVPB) 250 ML IV ONE (02:00)
[2017-07-29 03:22] LABS: BILIRUBIN,URINE NEGATIVE (NEGATIVE); KETONES,URINE 1+ (NEGATIVE); LEUKOCYTE ESTERASE ,URINE 1+ (NEGATIVE); NITRITE,URINE NEGATIVE (NEGATIVE); PH,URINE 5 (5-9); PROTEIN,URINE 1+ (NEGATIVE); UROBILINOGEN,URINE NORMAL (NORMAL)
[2017-07-29 03:33] LABS: HYALINE CASTS, URINE 25-50 /LPF; SQUAMOUS EPITHELIAL CELL,UR RARE /HPF; WBC,URINE 0-2 /HPF
[2017-07-29] MEDS ORDERED: NS IV 1000 ML 1,000 ML ONE (04:37)
[2017-07-29] MEDS: NS IV 1000 ML 1,000 ML IV SCH ×2 (05:00→08:02)
[2017-07-29 05:34] LABS: BASOPHILS % (AUTO) 0 % (0-10); EOSINOPHILS % (AUTO) 0 % (0-10); LYMPHOCYTES # (AUTO) 1.9 X 10^3 (1.0-4.0); LYMPHOCYTES % (AUTO) 13 % (12-44); MEAN CORPUSCULAR HEMOGLOBIN 29 PG (25-34); MEAN CORPUSCULAR HGB CONC 33 G/DL (32-36); MEAN CORPUSCULAR VOLUME 89 FL (80-99); MEAN PLATELET VOLUME 10.7 FL (7.4-10.4); MONOCYTES # (AUTO) 0.9 X 10^3 (0.0-1.0); MONOCYTES % (AUTO) 6 % (0-12); NEUTROPHILS # (AUTO) 11.7 X 10^3 (1.8-7.8); NEUTROPHILS % (AUTO) 81 % (42-75); PLATELET COUNT 191 10^3/uL (130-400); RED BLOOD COUNT 3.22 10^6/uL (4.35-5.85); RED CELL DISTRIBUTION WIDTH 15.4 % (10.0-14.5); WHITE BLOOD COUNT 14.5 10^3/uL (4.3-11.0)
[2017-07-29 05:50] LABS: ALANINE AMINOTRANSFERASE 14 U/L (0-55); ANION GAP 8 MMOL/L (5-14); ASPARTATE AMINO TRANSFERASE 30 U/L (5-34); BILIRUBIN,TOTAL 0.3 MG/DL (0.1-1.0); BLOOD UREA NITROGEN 74 MG/DL (7-18); BUN/CREATININE RATIO 65; CARBON DIOXIDE 22 MMOL/L (21-32); CHLORIDE 111 MMOL/L (98-107); CREATININE SERUM 1.14 MG/DL (0.60-1.30); GFR ESTIMATED > 60; GLUCOSE 97 MG/DL (70-105); MAGNESIUM 1.9 MG/DL (1.8-2.4); PHOSPHORUS 3.6 MG/DL (2.3-4.7); POTASSIUM 4.8 MMOL/L (3.6-5.0); SODIUM 141 MMOL/L (135-145); TOTAL PROTEIN 5.3 GM/DL (6.4-8.2)
[2017-07-29] MEDS ORDERED: PIPERACILLIN/TAZOBACTAM 4.5 GM/NS 100 ML IV ONE ×2 (06:15)
[2017-07-29] MEDS ORDERED: fentaNYL INJECTION 100 MCG/2 ML AMP IV PRN (06:15)
[2017-07-29] MEDS ORDERED: INFLUENZA TRIvalent 2017-2018 0.5 ML/45 MCG SYR IM ONE (07:30)
[2017-07-29] MEDS: VANCOMYCIN 1 GM/NS 250 ML IVPB IV SCH ×4 (08:20→22:02)
[2017-07-29] MEDS: HYDROcodone/APAP 5 MG/325 MG (LORTAB) TAB PO PRN ×2 (10:43→17:28)
[2017-07-29] MEDS ORDERED: LOSARTAN 25 MG (COZAAR) TAB PO ONE (11:45)
[2017-07-29] MEDS: PIPERACILLIN/TAZOBACTAM 4.5 GM/NS100 ML IVPB IV SCH ×4 (12:29→20:20)
[2017-07-29] MEDS ORDERED: VANCOMYCIN 1 GM/NS 250 ML IVPB IV SCH ×2 (14:00)
[2017-07-29] MEDS: fentaNYL INJECTION 100 MCG/2 ML AMP IV PRN ×3 (15:10→22:05)
[2017-07-30] VITALS: BP 136/63
[2017-07-30 04:00] VITALS: BP 121/63
[2017-07-30] MEDS: PIPERACILLIN/TAZOBACTAM 4.5 GM/NS100 ML IVPB IV SCH ×6 (04:31→19:46)
[2017-07-30] MEDS: HYDROcodone/APAP 5 MG/325 MG (LORTAB) TAB PO PRN ×3 (07:24→20:24)
[2017-07-30] MEDS: fentaNYL INJECTION 100 MCG/2 ML AMP IV PRN ×5 (07:24→22:42)
[2017-07-30 08:00] VITALS: BP 111/61
[2017-07-30] MEDS: LOSARTAN 25 MG (COZAAR) TAB PO SCH (08:57)
[2017-07-30] MEDS: VANCOMYCIN 1 GM/NS 250 ML IVPB IV SCH ×4 (08:58→20:58)
[2017-07-30 11:55] LABS: MEAN PLATELET VOLUME 10.9 FL (7.4-10.4); RED BLOOD COUNT 2.67 10^6/uL (4.35-5.85); RED CELL DISTRIBUTION WIDTH 15.7 % (10.0-14.5); WHITE BLOOD COUNT 8.4 10^3/uL (4.3-11.0)
[2017-07-30 12:00] VITALS: BP 112/61
[2017-07-30 12:08] LABS: ALANINE AMINOTRANSFERASE 35 U/L (0-55); ANION GAP 7 MMOL/L (5-14); ASPARTATE AMINO TRANSFERASE 112 U/L (5-34); BILIRUBIN,TOTAL 0.4 MG/DL (0.1-1.0); BLOOD UREA NITROGEN 30 MG/DL (7-18); BUN/CREATININE RATIO 33; CALCIUM 7.9 MG/DL (8.5-10.1); CARBON DIOXIDE 22 MMOL/L (21-32); CHLORIDE 112 MMOL/L (98-107); CREATININE SERUM 0.92 MG/DL (0.60-1.30); GFR ESTIMATED > 60; GLUCOSE 87 MG/DL (70-105); POTASSIUM 3.6 MMOL/L (3.6-5.0); SODIUM 141 MMOL/L (135-145); TOTAL PROTEIN 5.2 GM/DL (6.4-8.2)
[2017-07-30 16:00] VITALS: BP 116/56
[2017-07-30] MEDS ORDERED: TROUGH ORDER-PHARMACY XX NR (20:00)
[2017-07-30 23:36] VITALS: BP 122/57
[2017-07-31] VITALS (8 sets, daily range): BP systolic 123–155; BP diastolic 57–83
[2017-07-31] MEDS: fentaNYL INJECTION 100 MCG/2 ML AMP IV PRN (01:41)
[2017-07-31] MEDS: HYDROcodone/APAP 5 MG/325 MG (LORTAB) TAB PO PRN ×4 (02:25→20:14)
[2017-07-31] MEDS: PIPERACILLIN/TAZOBACTAM 4.5 GM/NS100 ML IVPB IV SCH ×6 (03:16→20:11)
[2017-07-31 05:57] LABS: BASOPHILS % (AUTO) 1 % (0-10); EOSINOPHILS # (AUTO) 0.3 10^3/uL (0.0-0.3); EOSINOPHILS % (AUTO) 5 % (0-10); LYMPHOCYTES # (AUTO) 2.1 X 10^3 (1.0-4.0); LYMPHOCYTES % (AUTO) 33 % (12-44); MEAN CORPUSCULAR HEMOGLOBIN 29 PG (25-34); MEAN CORPUSCULAR HGB CONC 32 G/DL (32-36); MEAN CORPUSCULAR VOLUME 91 FL (80-99); MEAN PLATELET VOLUME 9.7 FL (7.4-10.4); MONOCYTES # (AUTO) 0.5 X 10^3 (0.0-1.0); MONOCYTES % (AUTO) 7 % (0-12); NEUTROPHILS # (AUTO) 3.6 X 10^3 (1.8-7.8); NEUTROPHILS % (AUTO) 55 % (42-75); PLATELET COUNT 163 10^3/uL (130-400); RED BLOOD COUNT 2.45 10^6/uL (4.35-5.85); RED CELL DISTRIBUTION WIDTH 15.5 % (10.0-14.5); WHITE BLOOD COUNT 6.5 10^3/uL (4.3-11.0)
[2017-07-31 06:23] LABS: ALANINE AMINOTRANSFERASE 38 U/L (0-55); ALBUMIN 3.1 GM/DL (3.2-4.5); ANION GAP 7 MMOL/L (5-14); ASPARTATE AMINO TRANSFERASE 81 U/L (5-34); BILIRUBIN,TOTAL 0.5 MG/DL (0.1-1.0); BLOOD UREA NITROGEN 22 MG/DL (7-18); BUN/CREATININE RATIO 21; CALCIUM 8.1 MG/DL (8.5-10.1); CARBON DIOXIDE 22 MMOL/L (21-32); CHLORIDE 111 MMOL/L (98-107); CREATININE SERUM 1.07 MG/DL (0.60-1.30); GFR ESTIMATED > 60; GLUCOSE 88 MG/DL (70-105); POTASSIUM 3.7 MMOL/L (3.6-5.0); SODIUM 140 MMOL/L (135-145); TOTAL PROTEIN 5.5 GM/DL (6.4-8.2)
[2017-07-31] MEDS: VANCOMYCIN 1 GM/NS 250 ML IVPB IV SCH ×2 (08:25)
[2017-07-31] MEDS: LOSARTAN 25 MG (COZAAR) TAB PO SCH (08:25)
[2017-07-31] MEDS ORDERED: NS IV 500 ML 500 ML ONE (09:22)
[2017-07-31] MEDS ORDERED: FUROSEMIDE 40 MG/4 ML INJ (LASIX) IVP ONE (11:00)
[2017-07-31 13:00] LABS: LYME AB G M 0.08 Index (0.00-0.89)
[2017-07-31 14:29] LABS: EHRLICHIA CHAFFEENSIS G ABY <1:16 (<1:16)
[2017-08-01 00:54] VITALS: BP 126/75
[2017-08-01] MEDS: PIPERACILLIN/TAZOBACTAM 4.5 GM/NS100 ML IVPB IV SCH ×2 (04:52)
[2017-08-01 06:10] LABS: BASOPHILS # (AUTO) 0.1 10^3/uL (0.0-0.1); BASOPHILS % (AUTO) 1 % (0-10); EOSINOPHILS # (AUTO) 0.4 10^3/uL (0.0-0.3); EOSINOPHILS % (AUTO) 6 % (0-10); LYMPHOCYTES # (AUTO) 1.8 X 10^3 (1.0-4.0); LYMPHOCYTES % (AUTO) 31 % (12-44); MEAN CORPUSCULAR HEMOGLOBIN 29 PG (25-34); MEAN CORPUSCULAR HGB CONC 33 G/DL (32-36); MEAN CORPUSCULAR VOLUME 88 FL (80-99); MEAN PLATELET VOLUME 10.5 FL (7.4-10.4); MONOCYTES # (AUTO) 0.5 X 10^3 (0.0-1.0); MONOCYTES % (AUTO) 8 % (0-12); NEUTROPHILS # (AUTO) 3.3 X 10^3 (1.8-7.8); NEUTROPHILS % (AUTO) 55 % (42-75); PLATELET COUNT 169 10^3/uL (130-400); RED CELL DISTRIBUTION WIDTH 15.3 % (10.0-14.5); WHITE BLOOD COUNT 5.9 10^3/uL (4.3-11.0)
[2017-08-01 06:34] LABS: ALANINE AMINOTRANSFERASE 39 U/L (0-55); ALBUMIN 3.3 GM/DL (3.2-4.5); ANION GAP 9 MMOL/L (5-14); ASPARTATE AMINO TRANSFERASE 61 U/L (5-34); BILIRUBIN,TOTAL 0.9 MG/DL (0.1-1.0); BLOOD UREA NITROGEN 17 MG/DL (7-18); BUN/CREATININE RATIO 16; CALCIUM 8.4 MG/DL (8.5-10.1); CARBON DIOXIDE 23 MMOL/L (21-32); CHLORIDE 108 MMOL/L (98-107); CREATININE SERUM 1.04 MG/DL (0.60-1.30); GFR ESTIMATED > 60; GLUCOSE 93 MG/DL (70-105); POTASSIUM 3.6 MMOL/L (3.6-5.0); SODIUM 140 MMOL/L (135-145); TOTAL PROTEIN 6.1 GM/DL (6.4-8.2)
[2017-08-01 07:51] LABS: LYME AB INTERP Negative (Negative)
[2017-08-01 08:00] VITALS: BP 136/75
[2017-08-01 08:16] LABS: TULAREMIA ANTIBODY <1:20
[2017-08-01] MEDS: LOSARTAN 25 MG (COZAAR) TAB PO SCH (09:00)
[2017-08-01] MEDS: HYDROcodone/APAP 5 MG/325 MG (LORTAB) TAB PO PRN (09:01)
[2017-08-01] MEDS ORDERED: HYDR-3812 PO (09:50)
[2017-08-01] MEDS ORDERED: DOXY100T19 PO (09:50)
[2017-08-01 11:21] VITALS: BP 136/75
[2017-08-01 14:46] LABS: IGG ROCKY MOUNTAIN SPOTTED FEV 1:16 (<1:16); IGM ROCKY MOUNTAIN SPOTTED FEV <1:10 (<1:10)
== END 2017-08-01 11:15 | disposition home or self-care (01) | DRG 871 ==
LOC: EDUNIT# 00:10 → ER 00:12 → ICU 03:51 → 4TH 12:00
PROVIDERS: ADMIT Internal Medicine; ATTEND Internal Medicine
DX: A41.9 Sepsis, unspecified organism (principal); N17.0 Acute kidney failure with tubular necrosis; A93.8 Other specified arthropod-borne viral fevers; I50.22 Chronic systolic (congestive) heart failure; I69.351 Hemiplegia and hemiparesis following cerebral infarction affecting right dominant side; D72.829 Elevated white blood cell count, unspecified; F17.210 Nicotine dependence, cigarettes, uncomplicated; F10.10 Alcohol abuse, uncomplicated; N28.9 Disorder of kidney and ureter, unspecified; R91.8 Other nonspecific abnormal finding of lung field; M62.81 Muscle weakness (generalized); I65.22 Occlusion and stenosis of left carotid artery; I11.0 Hypertensive heart disease with heart failure; I73.9 Peripheral vascular disease, unspecified; J44.9 Chronic obstructive pulmonary disease, unspecified; M47.897 Other spondylosis, lumbosacral region; D63.8 Anemia in other chronic diseases classified elsewhere; G57.93 Unspecified mononeuropathy of bilateral lower limbs
CPT/HCPCS: 36415; 71010; 71020; 71250; 72131; 72170; 74176; 80053; 80202; 80306; 80320; 81000; 82550; 83605; 83735; 84100; 85007; 85025; 85027; 85610; 85730; 86141; 86618; 86666; 86668; 86757; 86850; 86900; 86901; 86920; 87040; 93005; 93925; 96361; 96365; 96367; 96375; 96376

== ENCOUNTER → 2017-09-19 | Outpatient (CLI) | payer OTHER ==
[~2017-09-19] MED LIST changes: +DOXY100T19 PO; +HYDR-3812 PO; -METO-270 PO; -METO-274 PO; +METO-387 PO; +METO-395 PO
--- NOTE | 2017-09-20 09:32 | Diagnostic Imaging Report ---
EXAMINATION: PET-CT. TECHNIQUE: Serum glucose level at the time of the study is: 91 mg/dL. 12.8 mCi of FDG was administered intravenously followed by obtaining PET images with corresponding noncontrast CT scan images. The CT scan was performed for anatomic correlation and attenuation correction and was not performed according to the diagnostic protocol of the areas covered. The scan was performed from the head to mid thighs. INDICATION: Left upper lobe lung mass. 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 There is no suspicious hypermetabolic mass seen in the neck. In the left lung apex, there is a 3 cm hypermetabolic mass with a maximum SUV of 8. No other lung masses are seen. In the left suprahilar region adjacent to the aortopulmonary window at the mediastinal tio level, there is a 1 cm lymph node with mild hypermetabolism and a maximum SUV of 4. No contralateral hilar or mediastinal lymph nodes are seen. In the abdomen and pelvis, there is normal excretion of the tracer in the urinary tract with no hypermetabolic mass identified. No osseous metastases are demonstrated. IMPRESSION: The 3 cm left upper lobe mass is compatible with lung cancer with suggestion of an involved left suprahilar borderline sized lymph node adjacent to the aortopulmonary window. No evidence of distant metastasis. Dictated by: Dictated on workstation # [id number]
== END ==
LOC: RAD 08:54
PROVIDERS: ATTEND Internal Medicine Critical Care Medicine
DX: C34.90 Malignant neoplasm of unspecified part of unspecified bronchus or lung (principal)

== ENCOUNTER 2017-10-10 12:55 | Outpatient (RCR) | payer OTHER ==
[~2017-10-10 12:55] MED LIST changes: +ACHD5005 PO; -HYDR-3812 PO
== END 2018-01-08 | disposition home or self-care (01) ==
LOC: ONC 12:55
PROVIDERS: ATTEND Internal Medicine Hematology & Oncology
DX: C34.12 Malignant neoplasm of upper lobe, left bronchus or lung (principal); F17.210 Nicotine dependence, cigarettes, uncomplicated
CPT/HCPCS: 99214

== ENCOUNTER 2017-10-19 14:15 | Outpatient (RCR) | payer OTHER | END 2017-11-02 10:04 | disposition home or self-care (01) | PROVIDERS: ATTEND Nurse Practitioner Adult Health | DX: M79.604 Pain in right leg (principal); M79.605 Pain in left leg; R26.81 Unsteadiness on feet ==

== ENCOUNTER 2019-01-07 10:20 | Inpatient (IN) | payer OTHER, MEDICARE ==
[~2019-01-07] VITALS: Ht 177.8 cm; Wt 98.6 kg
[2019-01-07] VITALS (19 sets, daily range): BP systolic 92–145; BP diastolic 53–81
[~2019-01-07 10:20] MED LIST changes: +ETOMIDATE IV SOLN 20 MG/10 ML VIAL IV ONE; -LOSA25TA21 PO; +LOSA25TA41 PO; +MIDAZOLAM 5 MG/5 ML (VERSED) VIAL IJ ONE; +SUCCINYLCHOLINE INJ 100 MG/5 ML SYR INJ ONE; +fentaNYL INJECTION 100 MCG/2 ML AMP INJ ONE
--- OUTSIDE RECORDS SUMMARY | 2019-01-07 10:26 | XMS REPORT | Continuity of Care Document ---
Author Author [facility] Organization [facility] Address Unknown Phone Unavailable Allergies Active Description Code Type Severity Reaction Onset Reported/Identified Relationship to Patient Clinical Status Yes No Known Drug Allergies [id number] Drug Allergy Unknown N/A 11/07/2012 Medications There is no data. 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 W CEREBR 11/07/2012 Ot 724.2 LUMBAGO 11/10/2012 Ot 272.4 HYPERLIPIDEMIA NEC/NOS 11/10/2012 Ot 305.1 TOBACCO USE DISORDER 11/10/2012 Ot 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 WO CEREBRA 11/10/2012 Ot 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,HEMIPLEGIA AFFECTING 11/10/2012 Ot V71.2 OBSERV- SUSPECT TB 11/28/2012 Ot 273.8 DIS PLAS PROTEIN MET NEC 11/28/2012 Ot 275.41 HYPOCALCEMIA 11/28/2012 Ot 300.4 DYSTHYMIC DISORDER 11/28/2012 Ot 305.1 TOBACCO USE DISORDER 11/28/2012 Ot 401.9 HYPERTENSION NOS 11/28/2012 Ot 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 WO CEREBRA 11/28/2012 Ot 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,HEMIPLEGIA AFFECTING 11/28/2012 Ot 721.3 LUMBOSACRAL SPONDYLOSIS 11/28/2012 Ot V57.1 PHYSICAL THERAPY NEC 11/28/2012 Ot V57.21 ENCOUNTER FOR OCCUPATIONAL THERAPY 11/28/2012 Ot V62.84 SUICIDAL IDEATION 01/23/2013 Ot 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,HEMIPLEGIA AFFECTING 01/23/2013 Ot V57.1 PHYSICAL THERAPY NEC 01/23/2013 Ot V57.21 ENCOUNTER FOR OCCUPATIONAL THERAPY 07/10/2013 MANINDER LÓPEZ MD Ot 305.1 TOBACCO USE DISORDER 07/10/2013 MANINDER LÓPEZ MD Ot 401.9 HYPERTENSION NOS 07/10/2013 MANINDER LÓPEZ MD Ot 435.9 TRANS CEREB ISCHEMIA NOS 07/10/2013 MANINDER LÓPEZ MD Ot 438.20 LATE EFF-CEREBR DIS,HEMIPLEGIA AFFECTING 07/10/2013 MANINDER LÓPEZ MD Ot 443.9 PERIPH VASCULAR DIS NOS 07/10/2013 MANINDER LÓPEZ MD Ot 496 CHR AIRWAY OBSTRUCT NEC 07/10/2013 MANINDER LÓPEZ MD Ot 782.0 SKIN SENSATION DISTURB 07/10/2013 MANINDER LÓPEZ MD Ot V58.63 LONG-TERM(CURRENT)USE OF ANTIPLATELET/AN 07/10/2013 MANINDER LÓPEZ MD Ot V58.66 LONG-TERM (CURRENT) USE OF ASPIRIN 07/10/2015 BEATRIZ CARR, BEN Zimmer Ot 305.1 07/10/2015 BEATRIZ CARR, BEN Zimmer Ot 401.9 07/10/2015 BEATRIZ CARR, BEN Zimmer Ot 433.10 07/10/2015 BEATRIZ CARR, BEN Zimmer Ot 433.30 07/10/2015 BEATRIZ CARR, BEN Zimmer Ot 782.3 07/10/2015 BEATRIZ CARR, BEN Zimmer Ot 305.1 07/10/2015 BEATRIZ CARR, BEN Zimmer Ot 401.9 07/10/2015 BEATRIZ CARR, BEN Zimmer Ot 433.10 07/10/2015 BEATRIZ CARR, BEN Zimmer Ot 433.30 07/10/2015 BEATRIZ CARR, BEN Zimmer Ot 782.3 07/16/2015 GOLDEN CARR, LEOPOLDO Zaragoza Ot 433.10 CAROTID ARTERY OCCLUSION W O CEREBRAL IN 07/28/2015 BRUEGSHEKHAR CANALES MD Ot 305.1 TOBACCO USE DISORDER 07/28/2015 SHEKHAR AVILES MD Ot 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 07/28/2015 SHEKHAR AVILES MD Ot 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, ONE EYE NOS 07/28/2015 SHEKHAR AVILES MD Ot 401.9 HYPERTENSION NOS 07/28/2015 SHEKHAR AVILES MD Ot 433.10 CAROTID ARTERY OCCLUSION W O CEREBRAL IN 07/28/2015 SHEKHAR AVILES MD Ot 438.20 LATE EFF-CEREBR DIS,HEMIPLEGIA AFFECTING 07/28/2015 SHEKHAR AVILES MD Ot V58.69 OTH MED,LT,CURRENT USE 02/12/2016 BEN HENDERSON MD Ot 305.1 TOBACCO USE DISORDER 02/12/2016 BEN HENDERSON MD Ot 401.9 HYPERTENSION NOS 02/12/2016 BEN HENDERSON MD Ot 433.10 CAROTID ARTERY OCCLUSION W O CEREBRAL IN 02/12/2016 BEN HENDERSON MD Ot 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 WO CEREBRA 02/12/2016 BEN HENDERSON MD Ot 782.3 EDEMA 02/12/2016 LEOPOLDO FRANKS MD Ot 433.10 CAROTID ARTERY OCCLUSION W O CEREBRAL IN 02/12/2016 LEOPOLDO FRANKS MD Ot V72.63 PRE-PROCEDURAL LABORATORY EXAMINATION 02/12/2016 LEOPOLDO FRANKS MD Ot V72.81 [id number] CARDIOVASCULAR 02/12/2016 LEOPOLDO FRANKS MD Ot V72.83 EXAM PRE-OPERATIVE NEC 02/12/2016 LEOPOLDO FRANKS MD Ot V74.8 SCREEN-BACTERIAL DIS NEC 02/12/2016 BEN HENDERSON MD Ot 305.1 TOBACCO USE DISORDER 02/12/2016 BEN HENDERSON MD Ot 401.9 HYPERTENSION NOS 02/12/2016 BEN HENDERSON MD Ot 433.10 CAROTID ARTERY OCCLUSION W O CEREBRAL IN 02/12/2016 BEN HENDERSON MD Ot 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 WO CEREBRA 02/12/2016 BEN HENDERSON MD Ot 782.3 EDEMA 02/12/2016 LEOPOLDO FRANKS MD Ot 433.10 CAROTID ARTERY OCCLUSION W O CEREBRAL IN 02/12/2016 GOLDEN CARR, LEOPOLDO S Ot V72.63 PRE-PROCEDURAL LABORATORY EXAMINATION 02/12/2016 GOLDEN CARR, LEOPOLDO Zaragoza Ot V72.81 [id number] CARDIOVASCULAR 02/12/2016 LEOPOLDO FRANKS MD Ot V72.83 EXAM PRE-OPERATIVE NEC 02/12/2016 LEOPOLDO FRANKS MD Ot V74.8 SCREEN-BACTERIAL DIS NEC 03/07/2016 BEN HENDERSON MD Ot 305.1 TOBACCO USE DISORDER 03/07/2016 BEN HENDERSON MD Ot 401.9 HYPERTENSION NOS 03/07/2016 BEN HENDERSON MD Ot 433.10 CAROTID ARTERY OCCLUSION W O CEREBRAL IN 03/07/2016 BEN HENDERSON MD Ot 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 WO CEREBRA 03/07/2016 BEN HENDERSON MD Ot 782.3 EDEMA 03/07/2016 BEN HENDERSON MD Ot 305.1 TOBACCO USE DISORDER 03/07/2016 BEN HENDERSON MD Ot 401.9 HYPERTENSION NOS 03/07/2016 BEN HENDERSON MD Ot 433.10 CAROTID ARTERY OCCLUSION W O CEREBRAL IN 03/07/2016 BEN HENDERSON MD Ot 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 WO CEREBRA 03/07/2016 BEN HENDERSON MD Ot 782.3 EDEMA 03/18/2016 BEN HENDERSON MD Ot 305.1 TOBACCO USE DISORDER 03/18/2016 BEN HENDERSON MD Ot 401.9 HYPERTENSION NOS 03/18/2016 BEN HENDERSON MD Ot 433.10 CAROTID ARTERY OCCLUSION W O CEREBRAL IN 03/18/2016 BEN HENDERSON MD Ot 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 WO CEREBRA 03/18/2016 BEN HENDERSON MD Ot 782.3 EDEMA 06/08/2016 BEN HENDERSON MD Ot 305.1 TOBACCO USE DISORDER 06/08/2016 BEN HENDERSON MD Ot 401.9 HYPERTENSION NOS 06/08/2016 BEN HENDERSON MD Ot 433.10 CAROTID ARTERY OCCLUSION W O CEREBRAL IN 06/08/2016 BEN HENDERSON MD Ot 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 WO CEREBRA 06/08/2016 BEN HENDERSON MD Ot 782.3 EDEMA 09/30/2016 TRACI CARR, SHEKHAR Guerrero Ot 305.1 TOBACCO USE DISORDER 09/30/2016 SHEKHAR AVILES MD Ot 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 09/30/2016 SHEKHAR AVILES MD Ot 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, ONE EYE NOS 09/30/2016 SHEKHAR AVILES MD Ot 401.9 HYPERTENSION NOS 09/30/2016 SHEKHAR AVILES MD Ot 433.10 CAROTID ARTERY OCCLUSION W O CEREBRAL IN 09/30/2016 SHEKHAR AVILES MD Ot 438.20 LATE EFF-CEREBR DIS,HEMIPLEGIA AFFECTING 09/30/2016 SHEKHAR AVILES MD Ot V58.69 OT MED,LT,CURRENT USE 06/02/2017 JAMIE BRADFORD JOSE Ot A41.9 SEPSIS, UNSPECIFIED ORGANISM 06/02/2017 JAMIE BRADFORD JOSE Ot F17.210 NICOTINE DEPENDENCE, CIGARETTES, UNCOMPL 06/02/2017 JAMIE BRADFORD JOSE Ot I10 ESSENTIAL (PRIMARY) HYPERTENSION 06/02/2017 JAMIE BRADFORD JOSE Ot I25.5 ISCHEMIC CARDIOMYOPATHY 06/02/2017 JAMIE BRADFORD JOSE Ot I50.9 HEART FAILURE, UNSPECIFIED 06/02/2017 JAMIE BRADFORD JOSE Ot I65.22 OCCLUSION AND STENOSIS OF LEFT CAROTID A 06/02/2017 JAMIE BRADFORD JOSE Ot I69.351 HEMIPLGA FOLLOWING CEREBRAL INFRC AFF RI 06/02/2017 JAMIE BRADFORD JOSE Ot I73.9 PERIPHERAL VASCULAR DISEASE, UNSPECIFIED 06/02/2017 JAMIE BRADFORD JOSE Ot J18.9 PNEUMONIA, UNSPECIFIED ORGANISM 06/02/2017 JAMIE BRADFORD JOSE Ot J44.9 CHRONIC OBSTRUCTIVE PULMONARY DISEASE, U 06/02/2017 JAMIE BRADFORD JOSE Ot M41.9 SCOLIOSIS, UNSPECIFIED 06/02/2017 JAMIE BRADFORD JOSE Ot R65.20 SEVERE SEPSIS WITHOUT SEPTIC SHOCK 06/02/2017 JAMIE BRADFORD JOSE Ot R91.8 OTHER NONSPECIFIC ABNORMAL FINDING OF KAI 06/02/2017 JAMIE BRADFORD JOSE Ot Z91.19 PATIENT'S NONCOMPLIANCE W OT MEDICAL TR 06/02/2017 JAMIE BRADFORD JOSE Ot A41.9 SEPSIS, UNSPECIFIED ORGANISM 06/02/2017 AYALA DO, JOSE Ot F17.210 NICOTINE DEPENDENCE, CIGARETTES, UNCOMPL 06/02/2017 AYALA DO, JOSE Ot I10 ESSENTIAL (PRIMARY) HYPERTENSION 06/02/2017 AYALA DO, JOSE Ot I25.5 ISCHEMIC CARDIOMYOPATHY 06/02/2017 AYALA DO, JOSE Ot I50.9 HEART FAILURE, UNSPECIFIED 06/02/2017 AYALA DO, JOSE Ot I65.22 OCCLUSION AND STENOSIS OF LEFT CAROTID A 06/02/2017 AYALA DO, JOSE Ot I69.351 HEMIPLGA FOLLOWING CEREBRAL INFRC AFF RI 06/02/2017 AYALA DO, JOSE Ot I73.9 PERIPHERAL VASCULAR DISEASE, UNSPECIFIED 06/02/2017 AYALA DO JOSE Ot J18.9 PNEUMONIA, UNSPECIFIED ORGANISM 06/02/2017 AYALA DO JOSE Ot J44.9 CHRONIC OBSTRUCTIVE PULMONARY DISEASE, U 06/02/2017 AYALA DO JOSE Ot M41.9 SCOLIOSIS, UNSPECIFIED 06/02/2017 AYALA DO JOSE Ot R65.20 SEVERE SEPSIS WITHOUT SEPTIC SHOCK 06/02/2017 AYALA DO, JOSE Ot R91.8 OTHER NONSPECIFIC ABNORMAL FINDING OF KAI 06/02/2017 AYALA DO, JOSE Ot Z91.19 PATIENT'S NONCOMPLIANCE W [facility] MEDICAL TR 06/02/2017 JAMIE DO JOSE Ot A41.9 SEPSIS, UNSPECIFIED ORGANISM 06/02/2017 AYALA DO, JOSE Ot F17.210 NICOTINE DEPENDENCE, CIGARETTES, UNCOMPL 06/02/2017 AYALA DO, JOSE Ot I10 ESSENTIAL (PRIMARY) HYPERTENSION 06/02/2017 AYALA DO, JOSE Ot I25.5 ISCHEMIC CARDIOMYOPATHY 06/02/2017 AYALA DO, JOSE Ot I50.9 HEART FAILURE, UNSPECIFIED 06/02/2017 AYALA DO, JOSE Ot I65.22 OCCLUSION AND STENOSIS OF LEFT CAROTID A 06/02/2017 AYALA DO, JOSE Ot I69.351 HEMIPLGA FOLLOWING CEREBRAL INFRC AFF RI 06/02/2017 AYALA DO, JOSE Ot I73.9 PERIPHERAL VASCULAR DISEASE, UNSPECIFIED 06/02/2017 AYALA DO, JOSE Ot J18.9 PNEUMONIA, UNSPECIFIED ORGANISM 06/02/2017 AYALA DO, JOSE Ot J44.9 CHRONIC OBSTRUCTIVE PULMONARY DISEASE, U 06/02/2017 AYALA DO, JOSE Ot M41.9 SCOLIOSIS, UNSPECIFIED 06/02/2017 AYALA DO, JOSE Ot R65.20 SEVERE SEPSIS WITHOUT SEPTIC SHOCK 06/02/2017 AYALA DO, JOSE Ot R91.8 OTHER NONSPECIFIC ABNORMAL FINDING OF KAI 06/02/2017 AYALA DO, JOSE Ot Z91.19 PATIENT'S NONCOMPLIANCE W [facility] MEDICAL TR 06/02/2017 AYALA DO, JOSE Ot A41.9 SEPSIS, UNSPECIFIED ORGANISM 06/02/2017 AYALA DO, JOSE Ot F17.210 NICOTINE DEPENDENCE, CIGARETTES, UNCOMPL 06/02/2017 AYALA DO, JOSE Ot I10 ESSENTIAL (PRIMARY) HYPERTENSION 06/02/2017 AYALA DO, JOSE Ot I25.5 ISCHEMIC CARDIOMYOPATHY 06/02/2017 AYALA DO, JOSE Ot I50.9 HEART FAILURE, UNSPECIFIED 06/02/2017 AYALA DO, JOSE Ot I65.22 OCCLUSION AND STENOSIS OF LEFT CAROTID A 06/02/2017 AYALA DO JOSE Ot I69.351 HEMIPLGA FOLLOWING CEREBRAL INFRC AFF RI 06/02/2017 AYALA DO, JOSE Ot I73.9 PERIPHERAL VASCULAR DISEASE, UNSPECIFIED 06/02/2017 AYALA DO JOSE Ot J18.9 PNEUMONIA, UNSPECIFIED ORGANISM 06/02/2017 JAMIE DO JOSE Ot J44.9 CHRONIC OBSTRUCTIVE PULMONARY DISEASE, U 06/02/2017 AYALA DO, JOSE Ot M41.9 SCOLIOSIS, UNSPECIFIED 06/02/2017 AYALA DO, JOSE Ot R65.20 SEVERE SEPSIS WITHOUT SEPTIC SHOCK 06/02/2017 AYALA DO JOSE Ot R91.8 OTHER NONSPECIFIC ABNORMAL FINDING OF KAI 06/02/2017 AYALA DO, JOSE Ot Z91.19 PATIENT'S NONCOMPLIANCE W [facility] MEDICAL TR 06/02/2017 AYALA DO, JOSE Ot A41.9 SEPSIS, UNSPECIFIED ORGANISM 06/02/2017 AYAAL DO, JOSE Ot F17.210 NICOTINE DEPENDENCE, CIGARETTES, UNCOMPL 06/02/2017 AYALA DO, JOSE Ot I10 ESSENTIAL (PRIMARY) HYPERTENSION 06/02/2017 AYALA DO, JOSE Ot I25.5 ISCHEMIC CARDIOMYOPATHY 06/02/2017 AYALA DO, JOSE Ot I50.9 HEART FAILURE, UNSPECIFIED 06/02/2017 AYALA DO, JOSE Ot I65.22 OCCLUSION AND STENOSIS OF LEFT CAROTID A 06/02/2017 AYALA DO, JOSE Ot I69.351 HEMIPLGA FOLLOWING CEREBRAL INFRC AFF RI 06/02/2017 AYALA DO, JOSE Ot I73.9 PERIPHERAL VASCULAR DISEASE, UNSPECIFIED 06/02/2017 AYALA DO, JOSE Ot J18.9 PNEUMONIA, UNSPECIFIED ORGANISM 06/02/2017 AYALA DO, JOSE Ot J44.9 CHRONIC OBSTRUCTIVE PULMONARY DISEASE, U 06/02/2017 AYALA DO, JOSE Ot M41.9 SCOLIOSIS, UNSPECIFIED 06/02/2017 AYALA DO, JOSE Ot R65.20 SEVERE SEPSIS WITHOUT SEPTIC SHOCK 06/02/2017 AYALA DO, JOSE Ot R91.8 OTHER NONSPECIFIC ABNORMAL FINDING OF KAI 06/02/2017 AYALA DO, JOSE Ot Z91.19 PATIENT'S NONCOMPLIANCE W [facility] MEDICAL TR 06/02/2017 AYALA DO, JOSE Ot A41.9 SEPSIS, UNSPECIFIED ORGANISM 06/02/2017 AYALA DO, JOSE Ot F17.210 NICOTINE DEPENDENCE, CIGARETTES, UNCOMPL 06/02/2017 AYALA DO, JOSE Ot I10 ESSENTIAL (PRIMARY) HYPERTENSION 06/02/2017 AYALA DO, JOSE Ot I25.5 ISCHEMIC CARDIOMYOPATHY 06/02/2017 AYALA DO, JOSE Ot I50.9 HEART FAILURE, UNSPECIFIED 06/02/2017 AYALA DO, JOSE Ot I65.22 OCCLUSION AND STENOSIS OF LEFT CAROTID A 06/02/2017 AYALA DO, JOSE Ot I69.351 HEMIPLGA FOLLOWING CEREBRAL INFRC AFF RI 06/02/2017 AYALA DO, JOSE Ot I73.9 PERIPHERAL VASCULAR DISEASE, UNSPECIFIED 06/02/2017 AYALA DO, JOSE Ot J18.9 PNEUMONIA, UNSPECIFIED ORGANISM 06/02/2017 AYALA DO, JOSE Ot J44.9 CHRONIC OBSTRUCTIVE PULMONARY DISEASE, U 06/02/2017 AYALA DO, JOSE Ot M41.9 SCOLIOSIS, UNSPECIFIED 06/02/2017 AYALA DO, JOSE Ot R65.20 SEVERE SEPSIS WITHOUT SEPTIC SHOCK 06/02/2017 AYALA DO, JOSE Ot R91.8 OTHER NONSPECIFIC ABNORMAL FINDING OF KAI 06/02/2017 AYALA DO, JOSE Ot Z91.19 PATIENT'S NONCOMPLIANCE W OTH MEDICAL TR 06/02/2017 AYALA DO, JOSE Ot A41.9 SEPSIS, UNSPECIFIED ORGANISM 06/02/2017 AYALA DO, JOSE Ot F17.210 NICOTINE DEPENDENCE, CIGARETTES, UNCOMPL 06/02/2017 AYALA DO, JOSE Ot I10 ESSENTIAL (PRIMARY) HYPERTENSION 06/02/2017 AYALA DO, JOSE Ot I25.5 ISCHEMIC CARDIOMYOPATHY 06/02/2017 AYALA DO, JOSE Ot I50.9 HEART FAILURE, UNSPECIFIED 06/02/2017 AYALA DO, JOSE Ot I65.22 OCCLUSION AND STENOSIS OF LEFT CAROTID A 06/02/2017 AYALA DO, JOSE Ot I69.351 HEMIPLGA FOLLOWING CEREBRAL INFRC AFF RI 06/02/2017 AYALA DO, JOSE Ot I73.9 PERIPHERAL VASCULAR DISEASE, UNSPECIFIED 06/02/2017 AYALA DO, JOSE Ot J18.9 PNEUMONIA, UNSPECIFIED ORGANISM 06/02/2017 AYALA DO JOSE Ot J44.9 CHRONIC OBSTRUCTIVE PULMONARY DISEASE, U 06/02/2017 AYALA DO JOSE Ot M41.9 SCOLIOSIS, UNSPECIFIED 06/02/2017 AYALA DO, JOSE Ot R65.20 SEVERE SEPSIS WITHOUT SEPTIC SHOCK 06/02/2017 AYALA DO, JOSE Ot R91.8 OTHER NONSPECIFIC ABNORMAL FINDING OF KAI 06/02/2017 JAMIE DO JOSE Ot Z91.19 PATIENT'S NONCOMPLIANCE W [facility] MEDICAL TR 06/02/2017 AYALA DO, JOSE Ot A41.9 SEPSIS, UNSPECIFIED ORGANISM 06/02/2017 AYALA DO, JSOE Ot F17.210 NICOTINE DEPENDENCE, CIGARETTES, UNCOMPL 06/02/2017 AYALA DO, JOSE Ot I10 ESSENTIAL (PRIMARY) HYPERTENSION 06/02/2017 AYALA DO, JOSE Ot I25.5 ISCHEMIC CARDIOMYOPATHY 06/02/2017 AYALA DO, JOSE Ot I50.9 HEART FAILURE, UNSPECIFIED 06/02/2017 AYALA DO, JOSE Ot I65.22 OCCLUSION AND STENOSIS OF LEFT CAROTID A 06/02/2017 AYALA DO, JOSE Ot I69.351 HEMIPLGA FOLLOWING CEREBRAL INFRC AFF RI 06/02/2017 AYALA DO, JOSE Ot I73.9 PERIPHERAL VASCULAR DISEASE, UNSPECIFIED 06/02/2017 AYALA DO JOSE Ot J18.9 PNEUMONIA, UNSPECIFIED ORGANISM 06/02/2017 AYALA DO, JOSE Ot J44.9 CHRONIC OBSTRUCTIVE PULMONARY DISEASE, U 06/02/2017 AYALA DO, JOSE Ot M41.9 SCOLIOSIS, UNSPECIFIED 06/02/2017 AYALA DO, JOSE Ot R65.20 SEVERE SEPSIS WITHOUT SEPTIC SHOCK 06/02/2017 AYALA DO, JOSE Ot R91.8 OTHER NONSPECIFIC ABNORMAL FINDING OF KAI 06/02/2017 AYALA DO, JOSE Ot Z91.19 PATIENT'S NONCOMPLIANCE W [facility] MEDICAL TR 06/02/2017 AYALA DO, JOSE Ot A41.9 SEPSIS, UNSPECIFIED ORGANISM 06/02/2017 AYALA DO, JOSE Ot F17.210 NICOTINE DEPENDENCE, CIGARETTES, UNCOMPL 06/02/2017 AYALA DO, JOSE Ot I10 ESSENTIAL (PRIMARY) HYPERTENSION 06/02/2017 AYALA DO, JOSE Ot I25.5 ISCHEMIC CARDIOMYOPATHY 06/02/2017 AYALA DO JOSE Ot I50.9 HEART FAILURE, UNSPECIFIED 06/02/2017 JAMIE DO JOSE Ot I65.22 OCCLUSION AND STENOSIS OF LEFT CAROTID A 06/02/2017 AYALA DO, JOSE Ot I69.351 HEMIPLGA FOLLOWING CEREBRAL INFRC AFF RI 06/02/2017 AYALA DO, JOSE Ot I73.9 PERIPHERAL VASCULAR DISEASE, UNSPECIFIED 06/02/2017 AYALA DO JOSE Ot J18.9 PNEUMONIA, UNSPECIFIED ORGANISM 06/02/2017 AYALA DO JOSE Ot J44.9 CHRONIC OBSTRUCTIVE PULMONARY DISEASE, U 06/02/2017 AYALA DO JOSE Ot M41.9 SCOLIOSIS, UNSPECIFIED 06/02/2017 AYALA DO JOSE Ot R65.20 SEVERE SEPSIS WITHOUT SEPTIC SHOCK 06/02/2017 AYALA DO JOSE Ot R91.8 OTHER NONSPECIFIC ABNORMAL FINDING OF KAI 06/02/2017 AYALA DO, JOSE Ot Z91.19 PATIENT'S NONCOMPLIANCE W [facility] MEDICAL TR 06/03/2017 AYALA DO, JOSE Ot A41.9 SEPSIS, UNSPECIFIED ORGANISM 06/03/2017 AYALA DO, JOSE Ot F17.210 NICOTINE DEPENDENCE, CIGARETTES, UNCOMPL 06/03/2017 AYALA DO, JOSE Ot I10 ESSENTIAL (PRIMARY) HYPERTENSION 06/03/2017 AYALA DO, JOSE Ot I25.5 ISCHEMIC CARDIOMYOPATHY 06/03/2017 AYALA DO, JOSE Ot I50.9 HEART FAILURE, UNSPECIFIED 06/03/2017 AYALA DO, JOSE Ot I65.22 OCCLUSION AND STENOSIS OF LEFT CAROTID A 06/03/2017 AYALA DO, JOSE Ot I69.351 HEMIPLGA FOLLOWING CEREBRAL INFRC AFF RI 06/03/2017 AYALA DO JOSE Ot I73.9 PERIPHERAL VASCULAR DISEASE, UNSPECIFIED 06/03/2017 AYALA DO JOSE Ot J18.9 PNEUMONIA, UNSPECIFIED ORGANISM 06/03/2017 AYALA DO, JOSE Ot J44.9 CHRONIC OBSTRUCTIVE PULMONARY DISEASE, U 06/03/2017 AYALA DO, JOSE Ot M41.9 SCOLIOSIS, UNSPECIFIED 06/03/2017 AYALA DO, JOSE Ot R65.20 SEVERE SEPSIS WITHOUT SEPTIC SHOCK 06/03/2017 AYALA DO, JOSE Ot R91.8 OTHER NONSPECIFIC ABNORMAL FINDING OF KAI 06/03/2017 AYALA DO JOSE Ot Z91.19 PATIENT'S NONCOMPLIANCE W [facility] MEDICAL TR 06/04/2017 JAMIE DO JOSE Ot A41.9 SEPSIS, UNSPECIFIED ORGANISM 06/04/2017 AYALA DO, JOSE Ot F17.210 NICOTINE DEPENDENCE, CIGARETTES, UNCOMPL 06/04/2017 AYALA DO, JOSE Ot I10 ESSENTIAL (PRIMARY) HYPERTENSION 06/04/2017 AYALA DO JOSE Ot I25.5 ISCHEMIC CARDIOMYOPATHY 06/04/2017 AYALA DO JOSE Ot I50.9 HEART FAILURE, UNSPECIFIED 06/04/2017 AYALA DO JOSE Ot I65.22 OCCLUSION AND STENOSIS OF LEFT CAROTID A 06/04/2017 AYALA DO JOSE Ot I69.351 HEMIPLGA FOLLOWING CEREBRAL INFRC AFF RI 06/04/2017 AYALA DO, JOSE Ot I73.9 PERIPHERAL VASCULAR DISEASE, UNSPECIFIED 06/04/2017 AYALA DO JSOE Ot J18.9 PNEUMONIA, UNSPECIFIED ORGANISM 06/04/2017 AYALA DO JOSE Ot J44.9 CHRONIC OBSTRUCTIVE PULMONARY DISEASE, U 06/04/2017 AYALA DO, JOSE Ot M41.9 SCOLIOSIS, UNSPECIFIED 06/04/2017 AYALA DO, JOSE Ot R65.20 SEVERE SEPSIS WITHOUT SEPTIC SHOCK 06/04/2017 AYALA DO JOSE Ot R91.8 OTHER NONSPECIFIC ABNORMAL FINDING OF KAI 06/04/2017 AYALA DO, JOSE Ot Z91.19 PATIENT'S NONCOMPLIANCE W [facility] MEDICAL TR 06/05/2017 AYALA DO, JOSE Ot A41.9 SEPSIS, UNSPECIFIED ORGANISM 06/05/2017 AYALA DO, JOSE Ot F17.210 NICOTINE DEPENDENCE, CIGARETTES, UNCOMPL 06/05/2017 AYALA DO, JOSE Ot I10 ESSENTIAL (PRIMARY) HYPERTENSION 06/05/2017 AYALA DO, JOSE Ot I25.5 ISCHEMIC CARDIOMYOPATHY 06/05/2017 AYALA DO, JOSE Ot I50.9 HEART FAILURE, UNSPECIFIED 06/05/2017 AYALA DO, JOSE Ot I65.22 OCCLUSION AND STENOSIS OF LEFT CAROTID A 06/05/2017 AYALA DO, JOSE Ot I69.351 HEMIPLGA FOLLOWING CEREBRAL INFRC AFF RI 06/05/2017 AYALA DO JOSE Ot I73.9 PERIPHERAL VASCULAR DISEASE, UNSPECIFIED 06/05/2017 JAMIE DO JOSE Ot J18.9 PNEUMONIA, UNSPECIFIED ORGANISM 06/05/2017 JAMIE DO JOSE Ot J44.9 CHRONIC OBSTRUCTIVE PULMONARY DISEASE, U 06/05/2017 AYALA DO JOSE Ot M41.9 SCOLIOSIS, UNSPECIFIED 06/05/2017 JAMIE DO JOSE Ot R65.20 SEVERE SEPSIS WITHOUT SEPTIC SHOCK 06/05/2017 JAMIE DO JOSE Ot R91.8 OTHER NONSPECIFIC ABNORMAL FINDING OF KAI 06/05/2017 AYALA DO, JOSE Ot Z91.19 PATIENT'S NONCOMPLIANCE W [facility] 06/05/2017 JAMIE DO JOSE Ot A41.9 SEPSIS, UNSPECIFIED ORGANISM 06/05/2017 AYALA DO, JOSE Ot F17.210 NICOTINE DEPENDENCE, CIGARETTES, UNCOMPL 06/05/2017 AYALA DO, JOSE Ot I10 ESSENTIAL (PRIMARY) HYPERTENSION 06/05/2017 AYALA DO JOSE Ot I25.5 ISCHEMIC CARDIOMYOPATHY 06/05/2017 AYALA DO JOSE Ot I50.21 ACUTE SYSTOLIC (CONGESTIVE) HEART FAILUR 06/05/2017 AYALA DO, JOSE Ot I65.22 OCCLUSION AND STENOSIS OF LEFT CAROTID A 06/05/2017 AYALA DO, JOSE Ot I69.351 HEMIPLGA FOLLOWING CEREBRAL INFRC AFF RI 06/05/2017 AYALA DO, JOSE Ot I73.9 PERIPHERAL VASCULAR DISEASE, UNSPECIFIED 06/05/2017 JOSE AYALA DO Ot J18.9 PNEUMONIA, UNSPECIFIED ORGANISM 06/05/2017 JOSE AYALA DO Ot J44.9 CHRONIC OBSTRUCTIVE PULMONARY DISEASE, U 06/05/2017 JOSE AYALA DO Ot M41.9 SCOLIOSIS, UNSPECIFIED 06/05/2017 REECE AYALA DOI Ot R65.20 SEVERE SEPSIS WITHOUT SEPTIC SHOCK 06/05/2017 JOSE AYALA DO Ot R91.8 OTHER NONSPECIFIC ABNORMAL FINDING OF KAI 06/05/2017 JOSE AYALA DO Ot Z91.19 PATIENT'S NONCOMPLIANCE W [facility] 08/01/2017 JOSE AAYLA DO Ot A41.9 SEPSIS, UNSPECIFIED ORGANISM 08/01/2017 JOSE AYALA DO Ot A93.8 OTHER SPECIFIED ARTHROPOD-BORNE VIRAL FE 08/01/2017 REECE AYALA DOI Ot D63.8 ANEMIA IN OTHER CHRONIC DISEASES CLASSIF 08/01/2017 JOSE AYALA DO Ot D72.829 ELEVATED WHITE BLOOD CELL COUNT, UNSPECI 08/01/2017 REECE AYALA DOI Ot F10.10 ALCOHOL ABUSE, UNCOMPLICATED 08/01/2017 REECE AYALA DOI Ot F17.210 NICOTINE DEPENDENCE, CIGARETTES, UNCOMPL 08/01/2017 REECE AYALA DOI Ot I11.0 HYPERTENSIVE HEART DISEASE WITH HEART FA 08/01/2017 REECE AYALA DOI Ot I50.22 CHRONIC SYSTOLIC (CONGESTIVE) HEART FAIL 08/01/2017 REECE AYALA DOI Ot I65.22 OCCLUSION AND STENOSIS OF LEFT CAROTID A 08/01/2017 JOSE AYALA DO Ot I69.351 HEMIPLGA FOLLOWING CEREBRAL INFRC AFF RI 08/01/2017 REECE AYALA DOI Ot I73.9 PERIPHERAL VASCULAR DISEASE, UNSPECIFIED 08/01/2017 JOSE AYALA DO Ot J44.9 CHRONIC OBSTRUCTIVE PULMONARY DISEASE, U 08/01/2017 JOSE AYALA DO Ot M47.897 OTHER SPONDYLOSIS, LUMBOSACRAL REGION 08/01/2017 REECE AYALA DOI Ot M62.81 MUSCLE WEAKNESS (GENERALIZED) 08/01/2017 REECE AYALA DOI Ot N17.0 ACUTE KIDNEY FAILURE WITH TUBULAR NECROS 08/01/2017 JOSE AYALA DO Ot N28.9 DISORDER OF KIDNEY AND URETER, UNSPECIFI 08/01/2017 JOSE AYALA DO Ot R91.8 OTHER NONSPECIFIC ABNORMAL FINDING OF KAI 08/01/2017 JOSE AYALA DO Ot A41.9 SEPSIS, UNSPECIFIED ORGANISM 08/01/2017 JOSE AYALA DO Ot A93.8 OTHER SPECIFIED ARTHROPOD-BORNE VIRAL FE 08/01/2017 JOSE AAYLA DO Ot D63.8 ANEMIA IN OTHER CHRONIC DISEASES CLASSIF 08/01/2017 JOSE AYALA DO Ot D72.829 ELEVATED WHITE BLOOD CELL COUNT, UNSPECI 08/01/2017 JOSE AYALA DO Ot F10.10 ALCOHOL ABUSE, UNCOMPLICATED 08/01/2017 JOSE AYALA DO Ot F17.210 NICOTINE DEPENDENCE, CIGARETTES, UNCOMPL 08/01/2017 JOSE AYALA DO Ot G57.93 UNSPECIFIED MONONEUROPATHY OF BILATERAL 08/01/2017 REECE AYALA DOI Ot I11.0 HYPERTENSIVE HEART DISEASE WITH HEART FA 08/01/2017 JOSE AYALA DO Ot I50.22 CHRONIC SYSTOLIC (CONGESTIVE) HEART FAIL 08/01/2017 JOSE AYALA DO Ot I65.22 OCCLUSION AND STENOSIS OF LEFT CAROTID A 08/01/2017 JOSE AYALA DO Ot I69.351 HEMIPLGA FOLLOWING CEREBRAL INFRC AFF RI 08/01/2017 JOSE AYALA DO Ot I73.9 PERIPHERAL VASCULAR DISEASE, UNSPECIFIED 08/01/2017 JOSE AYALA DO Ot J44.9 CHRONIC OBSTRUCTIVE PULMONARY DISEASE, U 08/01/2017 JOSE AYALA DO Ot M47.897 OTHER SPONDYLOSIS, LUMBOSACRAL REGION 08/01/2017 JOSE AYALA DO Ot M62.81 MUSCLE WEAKNESS (GENERALIZED) 08/01/2017 JOSE AYALA DO Ot N17.0 ACUTE KIDNEY FAILURE WITH TUBULAR NECROS 08/01/2017 JOSE AYALA DO Ot N28.9 DISORDER OF KIDNEY AND URETER, UNSPECIFI 08/01/2017 JOSE AYALA DO Ot R91.8 OTHER NONSPECIFIC ABNORMAL FINDING OF KAI 09/05/2017 EDIL CARDENAS DO Ot C34.12 MALIGNANT NEOPLASM OF UPPER LOBE, LEFT B 09/05/2017 EDIL CARDENAS DO Ot F17.210 NICOTINE DEPENDENCE, CIGARETTES, UNCOMPL 09/05/2017 EDIL CARDENAS DO Ot R06.00 DYSPNEA, UNSPECIFIED 09/05/2017 EDIL CARDENAS DO Ot R91.1 SOLITARY PULMONARY NODULE 09/19/2017 BEATRIZ CARR, BEN Zimmer Ot 305.1 TOBACCO USE DISORDER 09/19/2017 BEN HENDERSON MD Ot 401.9 HYPERTENSION NOS 09/19/2017 BEN HENDERSON MD Ot 433.10 CAROTID ARTERY OCCLUSION W O CEREBRAL IN 09/19/2017 BEN HENDERSON MD Ot 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 WO CEREBRA 09/19/2017 BEN HENDERSON MD Ot 782.3 EDEMA 09/19/2017 LEOPOLDO FRANKS MD Ot 433.10 CAROTID ARTERY OCCLUSION W O CEREBRAL IN 09/19/2017 LEOPOLDO FRANKS MD Ot V72.63 PRE-PROCEDURAL LABORATORY EXAMINATION 09/19/2017 LEOPOLDO FRANKS MD Ot V72.81 [id number] CARDIOVASCULAR 09/19/2017 LEOPOLDO FRANKS MD Ot V72.83 EXAM PRE-OPERATIVE NEC 09/19/2017 LEOPOLDO FRANKS MD Ot V74.8 SCREEN-BACTERIAL DIS NEC 09/25/2017 EDIL CARDENAS DO Ot C34.12 MALIGNANT NEOPLASM OF UPPER LOBE, LEFT B 09/25/2017 EDIL CARDENAS DO Ot F17.210 NICOTINE DEPENDENCE, CIGARETTES, UNCOMPL 09/25/2017 EDIL CARDENAS DO Ot R06.00 DYSPNEA, UNSPECIFIED 10/03/2017 DANUTA AMBROSIO Ot M79.604 PAIN IN RIGHT LEG 10/03/2017 DANUTA AMBROSIO Ot M79.605 PAIN IN LEFT LEG 10/03/2017 DANUTA AMBROSIO Ot R26.81 UNSTEADINESS ON FEET 10/12/2017 ALMA OJEDA MD Ot C34.12 MALIGNANT NEOPLASM OF UPPER LOBE, LEFT B 10/12/2017 ALMA OJEDA MD Ot F17.210 NICOTINE DEPENDENCE, CIGARETTES, UNCOMPL 10/25/2017 DANUTA AMBROSIO Ot M79.604 PAIN IN RIGHT LEG 10/25/2017 DANUTA AMBROSIO Ot M79.605 PAIN IN LEFT LEG 10/25/2017 DANUTA AMBROSIO Ot R26.81 UNSTEADINESS ON FEET 11/02/2017 DANUTA AMBORSIOP Ot M79.604 PAIN IN RIGHT LEG 11/02/2017 DANUTA AMBROSIO Ot M79.605 PAIN IN LEFT LEG 11/02/2017 DANUTA AMBROSIO Ot R26.81 UNSTEADINESS ON FEET 11/29/2017 EDIL CARDENAS DO Ot C34.12 MALIGNANT NEOPLASM OF UPPER LOBE, LEFT B 11/29/2017 EDIL CARDENAS DO Ot F17.210 NICOTINE DEPENDENCE, CIGARETTES, UNCOMPL 11/29/2017 EDIL CARDENAS DO Ot R06.00 DYSPNEA, UNSPECIFIED 01/08/2018 ALMA OJEDA MD Ot C34.12 MALIGNANT NEOPLASM OF UPPER LOBE, LEFT B 01/08/2018 ALMA OJEDA MD Ot F17.210 NICOTINE DEPENDENCE, CIGARETTES, UNCOMPL 01/23/2018 Ot 722.52 LUMB/ LUMBOSAC DISC DEGEN 01/23/2018 Ot V68.01 DISABILITY EXAMINATION 01/23/2018 Ot V82.89 SCREEN FOR OTH SPECIF CONDITIONS 01/23/2018 BEATRIZ CARR, BEN Zimmer Ot 305.1 TOBACCO USE DISORDER 01/23/2018 BEATRIZ CARR, BEN Zimmer Ot 401.9 HYPERTENSION NOS 01/23/2018 BEATRIZ CARR, BEN Zimmer Ot 433.10 CAROTID ARTERY OCCLUSION W O CEREBRAL IN 01/23/2018 BEN HENDERSON MD Ot 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 WO CEREBRA 01/23/2018 BEN HENDERSON MD Ot 782.3 EDEMA 01/23/2018 LEOPOLDO FRANKS MD Ot 433.10 CAROTID ARTERY OCCLUSION W O CEREBRAL IN 01/23/2018 LEOPOLDO FRANKS MD Ot V72.63 PRE-PROCEDURAL LABORATORY EXAMINATION 01/23/2018 LEOPOLDO FRANKS MD Ot V72.81 [id number] CARDIOVASCULAR 01/23/2018 LEOPOLDO FRANKS MD Ot V72.83 EXAM PRE-OPERATIVE NEC 01/23/2018 LEOPOLDO FRANKS MD Ot V74.8 SCREEN-BACTERIAL DIS NEC 01/23/2018 EDIL CARDENAS DO Ot 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 NEOPLASM OF UNSP PART OF UNSP 01/23/2018 ALMA OJEDA MD Ot C34.12 MALIGNANT NEOPLASM OF UPPER LOBE, LEFT B 01/23/2018 LYNETTE CARR, ALMA Ot F17.210 NICOTINE DEPENDENCE, CIGARETTES, UNCOMPL 01/23/2018 LYNETTE CARR, ALMA Ot C34.12 MALIGNANT NEOPLASM OF UPPER LOBE, LEFT B 01/23/2018 LYNETTE CARR, ALMA Ot F17.210 NICOTINE DEPENDENCE, CIGARETTES, UNCOMPL 02/08/2018 BEATRIZ CARR, BEN Zimmer Ot 305.1 TOBACCO USE DISORDER 02/08/2018 BEATRIZ CARR, BEN Zimmer Ot 401.9 HYPERTENSION NOS 02/08/2018 BEATRIZ CARR, BEN Zimmer Ot 433.10 CAROTID ARTERY OCCLUSION W O CEREBRAL IN 02/08/2018 BEATRIZ CARR, BEN Zimmer Ot 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 WO CEREBRA 02/08/2018 BEN HENDERSON MD Ot 782.3 EDEMA 02/08/2018 LEOPOLDO FRANKS MD Ot 433.10 CAROTID ARTERY OCCLUSION W O CEREBRAL IN 02/08/2018 LEOPOLDO FRANKS MD Ot V72.63 PRE-PROCEDURAL LABORATORY EXAMINATION 02/08/2018 LEOPOLDO FRANKS MD Ot V72.81 [id number] CARDIOVASCULAR 02/08/2018 LEOOPLDO FRANKS MD Ot V72.83 EXAM PRE-OPERATIVE NEC 02/08/2018 LEOPOLDO FRANKS MD Ot V74.8 SCREEN-BACTERIAL DIS NEC 02/08/2018 EDIL CARDENAS DO Ot 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 NEOPLASM OF UNSP PART OF UNSP 02/08/2018 EDIL CARDENAS DO Ot 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 NEOPLASM OF UNSP PART OF UNSP Procedures Code Description Performed By Performed On 00.40 PROCEDURE ON SINGLE VESSEL 07/15/2015 38.12 HEAD NECK ENDARTER NEC 07/15/2015 [id number] DRAINAGE OF LEFT UPPER LUNG LOBE WITH 06/02/2017 Results Test Result Range Complete blood count (CBC) with automated white blood cell (WBC) differential - 06/01/17 09:40 Blood leukocytes automated count (number/volume) 12.7 10*3/uL 4.3-11.0 Blood erythrocytes automated count (number/volume) 5.31 10*6/uL 4.35-5.85 Venous blood hemoglobin measurement (mass/volume) 15.3 g/dL 13.3-17.7 Blood hematocrit (volume fraction) 47 % 40-54 Automated erythrocyte mean corpuscular volume 88 [foz_us] 80-99 Automated erythrocyte mean corpuscular hemoglobin (mass per erythrocyte) 29 pg 25-34 Automated erythrocyte mean corpuscular hemoglobin concentration measurement ( mass/volume) 33 g/dL 32-36 Automated erythrocyte distribution width ratio 16.1 % 10.0-14.5 Automated blood platelet count (count/volume) 289 10*3/uL 130-400 Automated blood platelet mean volume measurement 10.5 [foz_us] 7.4-10.4 Automated blood neutrophils/100 leukocytes 60 % 42-75 Automated blood lymphocytes/100 leukocytes 29 % 12-44 Blood monocytes/100 leukocytes 7 % 0-12 Automated blood eosinophils/100 leukocytes 3 % 0-10 Automated blood basophils/100 leukocytes 1 % 0-10 Blood neutrophils automated count (number/volume) 7.6 10*3 1.8-7.8 Blood lymphocytes automated count (number/volume) 3.7 10*3 1.0-4.0 Blood monocytes automated count (number/volume) 0.9 10*3 0.0-1.0 Automated eosinophil count 0.4 10*3/uL 0.0-0.3 Automated blood basophil count (count/volume) 0.1 10*3/uL 0.0-0.1 PT panel in platelet poor plasma by coagulation assay - 06/01/17 09:40 Prothrombin time (PT) in platelet poor plasma by coagulation assay 13.1 s 12.2-14.7 INR in platelet poor plasma or blood by coagulation assay 1.0 0.8-1.4 Activated partial thromboplastin time (aPTT) in platelet poor plasma bycoagulation assay - 06/01/17 09:40 Activated partial thromboplastin time (aPTT) in platelet poor plasma bycoagulation assay 31 s 24-35 Comprehensive metabolic panel - 06/01/17 09:40 Serum or plasma sodium measurement (moles/volume) 141 mmol/L 135-145 Serum or plasma potassium measurement (moles/volume) 3.8 mmol/L 3.6-5.0 Serum or plasma chloride measurement (moles/volume) 107 mmol/L 98-107 Carbon dioxide 21 mmol/L 21-32 Serum or plasma anion gap determination (moles/volume) 13 mmol/L 5-14 Serum or plasma urea nitrogen measurement (mass/volume) 17 mg/dL 7-18 Serum or plasma creatinine measurement (mass/volume) 1.15 mg/dL 0.60-1.30 Serum or plasma urea nitrogen/creatinine mass ratio 15 NRG Serum or plasma creatinine measurement with calculation of estimated glomerular filtration rate > NRG Serum or plasma glucose measurement (mass/volume) 169 mg/dL 70-105 Serum or plasma calcium measurement (mass/volume) 8.7 mg/dL 8.5-10.1 Serum or plasma total bilirubin measurement (mass/volume) 1.2 mg/dL 0.1-1.0 Serum or plasma alkaline phosphatase measurement (enzymatic activity/volume) 99 U/L 40-136 Serum or plasma aspartate aminotransferase measurement (enzymatic activity/ volume) 30 U/L 5-34 Serum or plasma alanine aminotransferase measurement (enzymatic activity/volume ) 28 U/L 0-55 Serum or plasma protein measurement (mass/volume) 7.2 g/dL 6.4-8.2 Serum or plasma albumin measurement (mass/volume) 3.9 g/dL 3.2-4.5 Magnesium - 06/01/17 09:40 Magnesium 2.2 mg/dL 1.8-2.4 Serum or plasma troponin i.cardiac measurement (mass/volume) - 06/01/17 09:40 Serum or plasma troponin i.cardiac measurement (mass/volume) < ng/ mL <0.30 Serum or plasma lithium measurement (moles/volume) - 06/01/17 09:40 BNP level 998.4 pg/mL <100.0 Myoglobin, serum - 06/01/17 09:40 Myoglobin, serum 71.1 ng/mL 10.0-92.0 Serum or plasma C reactive protein measurement (mass/volume) - 06/01/17 09:40 Serum or plasma C reactive protein measurement (mass/volume) 0.78 mg /dL 0.00-0.50 Blood lactic acid measurement (moles/volume) - 06/01/17 09:52 Blood lactic acid measurement (moles/volume) 2.95 mmol/L 0.50-2.00 Bacterial blood culture - 06/01/17 09:52 Bacterial blood culture NG NRG Bacterial blood culture - 06/01/17 10:09 Bacterial blood culture NG NRG Arterial blood gas measurement - 06/01/17 10:15 Blood pCO2 38 mm[Hg] 35-45 Blood pO2 73 mm[Hg] 79-93 Arterial blood bicarbonate measurement (moles/volume) 20 mmol/L 23-27 Arterial blood base excess by calculation -4.8 mmol/L - 2.5-2.5 Arterial blood oxygen saturation measurement 97 % 94-100 * Inhaled oxygen flow rate 3L NRG Arterial blood pH measurement with patient temperature correction 7.34 7.37-7.43 Arterial blood carbon dioxide, total measurement (moles/volume) 21.5 mmol/L 21.0-31.0 Body site RT RAD NRG Assessment of wrist artery patency prior to arterial puncture YES- POS NRG Setting of ventilation mode NO NRG Measurement of body temperature 96.0 NRG Serum or plasma lactate measurement (moles/volume) - 06/01/17 13:05 Serum or plasma lactate measurement (moles/volume) 2.08 mmol/L 0.50-2.00 Serum or plasma troponin i.cardiac measurement (mass/volume) - 06/01/17 15:42 Serum or plasma troponin i.cardiac measurement (mass/volume) < ng/ mL <0.30 Blood lactic acid measurement (moles/volume) - 06/01/17 17:14 Blood lactic acid measurement (moles/volume) 1.81 mmol/L 0.50-2.00 Blood lactic acid measurement (moles/volume) - 06/01/17 21:00 Blood lactic acid measurement (moles/volume) 2.27 mmol/L 0.50-2.00 Blood lactic acid measurement (moles/volume) - 06/01/17 23:06 Blood lactic acid measurement (moles/volume) 1.19 mmol/L 0.50-2.00 Blood lactic acid measurement (moles/volume) - 06/02/17 01:04 Blood lactic acid measurement (moles/volume) 1.22 mmol/L 0.50-2.00 Complete blood count (CBC) with automated white blood cell (WBC) differential - 06/02/17 05:03 Blood leukocytes automated count (number/volume) 10.9 10*3/uL 4.3-11.0 Blood erythrocytes automated count (number/volume) 4.02 10*6/uL 4.35-5.85 Venous blood hemoglobin measurement (mass/volume) 11.8 g/dL 13.3-17.7 Blood hematocrit (volume fraction) 35 % 40-54 Automated erythrocyte mean corpuscular volume 88 [foz_us] 80-99 Automated erythrocyte mean corpuscular hemoglobin (mass per erythrocyte) 29 pg 25-34 Automated erythrocyte mean corpuscular hemoglobin concentration measurement ( mass/volume) 34 g/dL 32-36 Automated erythrocyte distribution width ratio 15.7 % 10.0-14.5 Automated blood platelet count (count/volume) 200 10*3/uL 130-400 Automated blood platelet mean volume measurement 10.5 [foz_us] 7.4-10.4 Automated blood neutrophils/100 leukocytes 81 % 42-75 Automated blood lymphocytes/100 leukocytes 13 % 12-44 Blood monocytes/100 leukocytes 7 % 0-12 Automated blood eosinophils/100 leukocytes 0 % 0-10 Automated blood basophils/100 leukocytes 0 % 0-10 Blood neutrophils automated count (number/volume) 8.8 10*3 1.8-7.8 Blood lymphocytes automated count (number/volume) 1.4 10*3 1.0-4.0 Blood monocytes automated count (number/volume) 0.7 10*3 0.0-1.0 Automated eosinophil count 0.0 10*3/uL 0.0-0.3 Automated blood basophil count (count/volume) 0.0 10*3/uL 0.0-0.1 PT panel in platelet poor plasma by coagulation assay - 06/02/17 05:03 Prothrombin time (PT) in platelet poor plasma by coagulation assay 13.8 s 12.2-14.7 INR in platelet poor plasma or blood by coagulation assay 1.1 0.8-1.4 Activated partial thromboplastin time (aPTT) in platelet poor plasma bycoagulation assay - 06/02/17 05:03 Activated partial thromboplastin time (aPTT) in platelet poor plasma bycoagulation assay 33 s 24-35 Blood lactic acid measurement (moles/volume) - 06/02/17 05:03 Blood lactic acid measurement (moles/volume) 0.92 mmol/L 0.50-2.00 Comprehensive metabolic panel - 06/02/17 05:03 Serum or plasma sodium measurement (moles/volume) 140 mmol/L 135-145 Serum or plasma potassium measurement (moles/volume) 3.7 mmol/L 3.6-5.0 Serum or plasma chloride measurement (moles/volume) 112 mmol/L 98-107 Carbon dioxide 16 mmol/L 21-32 Serum or plasma anion gap determination (moles/volume) 12 mmol/L 5-14 Serum or plasma urea nitrogen measurement (mass/volume) 15 mg/dL 7-18 Serum or plasma creatinine measurement (mass/volume) 0.94 mg/dL 0.60-1.30 Serum or plasma urea nitrogen/creatinine mass ratio 16 NRG Serum or plasma creatinine measurement with calculation of estimated glomerular filtration rate > NRG Serum or plasma glucose measurement (mass/volume) 109 mg/dL 70-105 Serum or plasma calcium measurement (mass/volume) 8.0 mg/dL 8.5-10.1 Serum or plasma total bilirubin measurement (mass/volume) 0.6 mg/dL 0.1-1.0 Serum or plasma alkaline phosphatase measurement (enzymatic activity/volume) 70 U/L 40-136 Serum or plasma aspartate aminotransferase measurement (enzymatic activity/ volume) 17 U/L 5-34 Serum or plasma alanine aminotransferase measurement (enzymatic activity/volume ) 20 U/L 0-55 Serum or plasma protein measurement (mass/volume) 5.3 g/dL 6.4-8.2 Serum or plasma albumin measurement (mass/volume) 3.2 g/dL 3.2-4.5 Serum or plasma phosphate measurement (mass/volume) - 06/02/17 05:03 Serum or plasma phosphate measurement (mass/volume) 2.9 mg/dL 2.3-4.7 Magnesium - 06/02/17 05:03 Magnesium 1.7 mg/dL 1.8-2.4 Lipid 1996 panel - 06/02/17 05:03 Serum or plasma triglyceride measurement (mass/volume) 42 mg/dL <150 Serum or plasma cholesterol measurement (mass/volume) 136 mg/dL < 200 Serum or plasma cholesterol in HDL measurement (mass/volume) 42 mg/ dL 40-60 Cholesterol in LDL [mass/volume] in serum or plasma by direct assay 88 mg/dL 1-129 Serum or plasma cholesterol in VLDL measurement (mass/volume) 8 mg/ dL 5-40 THYROID STIMULATING HORMONE - 06/02/17 05:03 THYROID STIMULATING HORMONE 2.40 u[iU]/mL 0.35-4.94 Sputum Gram stain - 06/02/17 07:40 GRAM STAIN SPUTUM NO BACTERIA OBSERVED NRG Bacteria identification in bronchial specimen by aerobe culture - 06/02/17 07: 40 Bacteria identification in bronchial specimen by aerobe culture [facility] Mycobacterium species detection by organism specific culture - 06/02/17 07:40 Mycobacterium species detection by organism specific culture FOOTNOTE NRG Fungus culture - 06/02/17 07:40 Fungus culture NG [facility] Vancomycin trough - 06/02/17 12:00 Vancomycin trough 10.8 ug/mL 10.0-20.0 Complete blood count (CBC) with automated white blood cell (WBC) differential - 06/03/17 05:00 Blood leukocytes automated count (number/volume) 9.7 10*3/uL 4.3-11.0 Blood erythrocytes automated count (number/volume) 4.24 10*6/uL 4.35-5.85 Venous blood hemoglobin measurement (mass/volume) 12.4 g/dL 13.3-17.7 Blood hematocrit (volume fraction) 38 % 40-54 Automated erythrocyte mean corpuscular volume 88 [foz_us] 80-99 Automated erythrocyte mean corpuscular hemoglobin (mass per erythrocyte) 29 pg 25-34 Automated erythrocyte mean corpuscular hemoglobin concentration measurement ( mass/volume) 33 g/dL 32-36 Automated erythrocyte distribution width ratio 16.2 % 10.0-14.5 Automated blood platelet count (count/volume) 201 10*3/uL 130-400 Automated blood platelet mean volume measurement 10.8 [foz_us] 7.4-10.4 Automated blood neutrophils/100 leukocytes 68 % 42-75 Automated blood lymphocytes/100 leukocytes 23 % 12-44 Blood monocytes/100 leukocytes 7 % 0-12 Automated blood eosinophils/100 leukocytes 2 % 0-10 Automated blood basophils/100 leukocytes 1 % 0-10 Blood neutrophils automated count (number/volume) 6.6 10*3 1.8-7.8 Blood lymphocytes automated count (number/volume) 2.2 10*3 1.0-4.0 Blood monocytes automated count (number/volume) 0.7 10*3 0.0-1.0 Automated eosinophil count 0.2 10*3/uL 0.0-0.3 Automated blood basophil count (count/volume) 0.1 10*3/uL 0.0-0.1 Comprehensive metabolic panel - 06/03/17 05:00 Serum or plasma sodium measurement (moles/volume) 140 mmol/L 135-145 Serum or plasma potassium measurement (moles/volume) 3.6 mmol/L 3.6-5.0 Serum or plasma chloride measurement (moles/volume) 110 mmol/L 98-107 Carbon dioxide 19 mmol/L 21-32 Serum or plasma anion gap determination (moles/volume) 11 mmol/L 5-14 Serum or plasma urea nitrogen measurement (mass/volume) 18 mg/dL 7-18 Serum or plasma creatinine measurement (mass/volume) 1.18 mg/dL 0.60-1.30 Serum or plasma urea nitrogen/creatinine mass ratio 15 NRG Serum or plasma creatinine measurement with calculation of estimated glomerular filtration rate > NRG Serum or plasma glucose measurement (mass/volume) 79 mg/dL 70-105 Serum or plasma calcium measurement (mass/volume) 8.2 mg/dL 8.5-10.1 Serum or plasma total bilirubin measurement (mass/volume) 0.9 mg/dL 0.1-1.0 Serum or plasma alkaline phosphatase measurement (enzymatic activity/volume) 66 U/L 40-136 Serum or plasma aspartate aminotransferase measurement (enzymatic activity/ volume) 22 U/L 5-34 Serum or plasma alanine aminotransferase measurement (enzymatic activity/volume ) 24 U/L 0-55 Serum or plasma protein measurement (mass/volume) 5.7 g/dL 6.4-8.2 Serum or plasma albumin measurement (mass/volume) 3.3 g/dL 3.2-4.5 Magnesium - 06/03/17 05:00 Magnesium 2.0 mg/dL 1.8-2.4 Complete blood count (CBC) with automated white blood cell (WBC) differential - 06/04/17 05:05 Blood leukocytes automated count (number/volume) 8.8 10*3/uL 4.3-11.0 Blood erythrocytes automated count (number/volume) 4.23 10*6/uL 4.35-5.85 Venous blood hemoglobin measurement (mass/volume) 12.4 g/dL 13.3-17.7 Blood hematocrit (volume fraction) 37 % 40-54 Automated erythrocyte mean corpuscular volume 88 [foz_us] 80-99 Automated erythrocyte mean corpuscular hemoglobin (mass per erythrocyte) 29 pg 25-34 Automated erythrocyte mean corpuscular hemoglobin concentration measurement ( mass/volume) 33 g/dL 32-36 Automated erythrocyte distribution width ratio 16.1 % 10.0-14.5 Automated blood platelet count (count/volume) 211 10*3/uL 130-400 Automated blood platelet mean volume measurement 11.0 [foz_us] 7.4-10.4 Automated blood neutrophils/100 leukocytes 60 % 42-75 Automated blood lymphocytes/100 leukocytes 26 % 12-44 Blood monocytes/100 leukocytes 7 % 0-12 Automated blood eosinophils/100 leukocytes 5 % 0-10 Automated blood basophils/100 leukocytes 1 % 0-10 Blood neutrophils automated count (number/volume) 5.3 10*3 1.8-7.8 Blood lymphocytes automated count (number/volume) 2.3 10*3 1.0-4.0 Blood monocytes automated count (number/volume) 0.7 10*3 0.0-1.0 Automated eosinophil count 0.5 10*3/uL 0.0-0.3 Automated blood basophil count (count/volume) 0.1 10*3/uL 0.0-0.1 Comprehensive metabolic panel - 06/04/17 05:05 Serum or plasma sodium measurement (moles/volume) 142 mmol/L 135-145 Serum or plasma potassium measurement (moles/volume) 4.0 mmol/L 3.6-5.0 Serum or plasma chloride measurement (moles/volume) 109 mmol/L 98-107 Carbon dioxide 23 mmol/L 21-32 Serum or plasma anion gap determination (moles/volume) 10 mmol/L 5-14 Serum or plasma urea nitrogen measurement (mass/volume) 23 mg/dL 7-18 Serum or plasma creatinine measurement (mass/volume) 1.35 mg/dL 0.60-1.30 Serum or plasma urea nitrogen/creatinine mass ratio 17 NRG Serum or plasma creatinine measurement with calculation of estimated glomerular filtration rate 53 NRG Serum or plasma glucose measurement (mass/volume) 84 mg/dL 70-105 Serum or plasma calcium measurement (mass/volume) 8.6 mg/dL 8.5-10.1 Serum or plasma total bilirubin measurement (mass/volume) 0.7 mg/dL 0.1-1.0 Serum or plasma alkaline phosphatase measurement (enzymatic activity/volume) 59 U/L 40-136 Serum or plasma aspartate aminotransferase measurement (enzymatic activity/ volume) 22 U/L 5-34 Serum or plasma alanine aminotransferase measurement (enzymatic activity/volume ) 25 U/L 0-55 Serum or plasma protein measurement (mass/volume) 4.7 g/dL 6.4-8.2 Serum or plasma albumin measurement (mass/volume) 3.1 g/dL 3.2-4.5 Complete blood count (CBC) with automated white blood cell (WBC) differential - 06/05/17 05:21 Blood leukocytes automated count (number/volume) 9.1 10*3/uL 4.3-11.0 Blood erythrocytes automated count (number/volume) 4.30 10*6/uL 4.35-5.85 Venous blood hemoglobin measurement (mass/volume) 12.7 g/dL 13.3-17.7 Blood hematocrit (volume fraction) 38 % 40-54 Automated erythrocyte mean corpuscular volume 87 [foz_us] 80-99 Automated erythrocyte mean corpuscular hemoglobin (mass per erythrocyte) 30 pg 25-34 Automated erythrocyte mean corpuscular hemoglobin concentration measurement ( mass/volume) 34 g/dL 32-36 Automated erythrocyte distribution width ratio 15.8 % 10.0-14.5 Automated blood platelet count (count/volume) 216 10*3/uL 130-400 Automated blood platelet mean volume measurement 10.5 [foz_us] 7.4-10.4 Automated blood neutrophils/100 leukocytes 59 % 42-75 Automated blood lymphocytes/100 leukocytes 27 % 12-44 Blood monocytes/100 leukocytes 7 % 0-12 Automated blood eosinophils/100 leukocytes 6 % 0-10 Automated blood basophils/100 leukocytes 1 % 0-10 Blood neutrophils automated count (number/volume) 5.4 10*3 1.8-7.8 Blood lymphocytes automated count (number/volume) 2.4 10*3 1.0-4.0 Blood monocytes automated count (number/volume) 0.7 10*3 0.0-1.0 Automated eosinophil count 0.6 10*3/uL 0.0-0.3 Automated blood basophil count (count/volume) 0.1 10*3/uL 0.0-0.1 Comprehensive metabolic panel - 06/05/17 05:21 Serum or plasma sodium measurement (moles/volume) 139 mmol/L 135-145 Serum or plasma potassium measurement (moles/volume) 3.4 mmol/L 3.6-5.0 Serum or plasma chloride measurement (moles/volume) 109 mmol/L 98-107 Carbon dioxide 20 mmol/L 21-32 Serum or plasma anion gap determination (moles/volume) 10 mmol/L 5-14 Serum or plasma urea nitrogen measurement (mass/volume) 17 mg/dL 7-18 Serum or plasma creatinine measurement (mass/volume) 1.27 mg/dL 0.60-1.30 Serum or plasma urea nitrogen/creatinine mass ratio 13 NRG Serum or plasma creatinine measurement with calculation of estimated glomerular filtration rate 57 NRG Serum or plasma glucose measurement (mass/volume) 83 mg/dL 70-105 Serum or plasma calcium measurement (mass/volume) 8.2 mg/dL 8.5-10.1 Serum or plasma total bilirubin measurement (mass/volume) 0.8 mg/dL 0.1-1.0 Serum or plasma alkaline phosphatase measurement (enzymatic activity/volume) 61 U/L 40-136 Serum or plasma aspartate aminotransferase measurement (enzymatic activity/ volume) 16 U/L 5-34 Serum or plasma alanine aminotransferase measurement (enzymatic activity/volume ) 23 U/L 0-55 Serum or plasma protein measurement (mass/volume) 5.4 g/dL 6.4-8.2 Serum or plasma albumin measurement (mass/volume) 3.1 g/dL 3.2-4.5 Complete blood count (CBC) with automated white blood cell (WBC) differential - 07/29/17 00:30 Blood leukocytes automated count (number/volume) 24.2 10*3/uL 4.3-11.0 Blood erythrocytes automated count (number/volume) 4.10 10*6/uL 4.35-5.85 Venous blood hemoglobin measurement (mass/volume) 12.0 g/dL 13.3-17.7 Blood hematocrit (volume fraction) 37 % 40-54 Automated erythrocyte mean corpuscular volume 90 [foz_us] 80-99 Automated erythrocyte mean corpuscular hemoglobin (mass per erythrocyte) 29 pg 25-34 Automated erythrocyte mean corpuscular hemoglobin concentration measurement ( mass/volume) 33 g/dL 32-36 Automated erythrocyte distribution width ratio 15.8 % 10.0-14.5 Automated blood platelet count (count/volume) 284 10*3/uL 130-400 Automated blood platelet mean volume measurement 11.1 [foz_us] 7.4-10.4 Automated blood neutrophils/100 leukocytes 62 % 42-75 Automated blood lymphocytes/100 leukocytes 30 % 12-44 Blood monocytes/100 leukocytes 8 % 0-12 Automated blood eosinophils/100 leukocytes 1 % 0-10 Automated blood basophils/100 leukocytes 0 % 0-10 Blood neutrophils automated count (number/volume) 14.9 10*3 1.8-7.8 Blood lymphocytes automated count (number/volume) 7.2 10*3 1.0-4.0 Blood monocytes automated count (number/volume) 1.9 10*3 0.0-1.0 Automated eosinophil count 0.2 10*3/uL 0.0-0.3 Automated blood basophil count (count/volume) 0.1 10*3/uL 0.0-0.1 PT panel in platelet poor plasma by coagulation assay - 07/29/17 00:30 Prothrombin time (PT) in platelet poor plasma by coagulation assay 14.3 s 12.2-14.7 INR in platelet poor plasma or blood by coagulation assay 1.1 0.8-1.4 Activated partial thromboplastin time (aPTT) in platelet poor plasma bycoagulation assay - 07/29/17 00:30 Activated partial thromboplastin time (aPTT) in platelet poor plasma bycoagulation assay 26 s 24-35 Blood manual differential performed detection - 07/29/17 00:30 Blood monocytes/100 leukocytes 5 % NRG Manual blood segmented neutrophils/100 leukocytes 66 % NRG Blood band neutrophils/100 leukocytes 0 % NRG Manual blood lymphocytes/100 leukocytes 29 % NRG Manual eosinophils/100 leukocytes in nose 0 % NRG Manual blood basophils/100 leukocytes 0 % NRG Blood anisocytosis detection by light microscopy SLIGHT NRG Blood toxic granules detection by light microscopy 1+ NRG Blood lactic acid measurement (moles/volume) - 07/29/17 00:30 Blood lactic acid measurement (moles/volume) 9.62 mmol/L 0.50-2.00 Comprehensive metabolic panel - 07/29/17 00:30 Serum or plasma sodium measurement (moles/volume) 145 mmol/L 135-145 Serum or plasma potassium measurement (moles/volume) 3.6 mmol/L 3.6-5.0 Serum or plasma chloride measurement (moles/volume) 102 mmol/L 98-107 Carbon dioxide 18 mmol/L 21-32 Serum or plasma anion gap determination (moles/volume) 25 mmol/L 5-14 Serum or plasma urea nitrogen measurement (mass/volume) 82 mg/dL 7-18 Serum or plasma creatinine measurement (mass/volume) 1.63 mg/dL 0.60-1.30 Serum or plasma urea nitrogen/creatinine mass ratio 50 NRG Serum or plasma creatinine measurement with calculation of estimated glomerular filtration rate 43 NRG Serum or plasma glucose measurement (mass/volume) 165 mg/dL 70-105 Serum or plasma calcium measurement (mass/volume) 9.9 mg/dL 8.5-10.1 Serum or plasma total bilirubin measurement (mass/volume) 0.9 mg/dL 0.1-1.0 Serum or plasma alkaline phosphatase measurement (enzymatic activity/volume) 68 U/L 40-136 Serum or plasma aspartate aminotransferase measurement (enzymatic activity/ volume) 16 U/L 5-34 Serum or plasma alanine aminotransferase measurement (enzymatic activity/volume ) 14 U/L 0-55 Serum or plasma protein measurement (mass/volume) 6.6 g/dL 6.4-8.2 Serum or plasma albumin measurement (mass/volume) 3.6 g/dL 3.2-4.5 Serum or plasma C reactive protein measurement (mass/volume) - 07/29/17 00:30 Serum or plasma C reactive protein measurement (mass/volume) 0.89 mg /dL 0.00-0.50 Serum or plasma ethanol measurement (mass/volume) - 07/29/17 00:30 Serum or plasma ethanol measurement (mass/volume) < mg/dL <10 Serum or plasma creatine kinase measurement (enzymatic activity/volume) - 07/29 00:30 Serum or plasma creatine kinase measurement (enzymatic activity/volume) 373 U/L 30-200 Bacterial blood culture - 07/29/17 00:30 Bacterial blood culture NG NRG Tick identification panel - 07/29/17 00:30 Serum Ehrlichia chaffeensis IgG antibody detection <1:16 <1:16 Serum Ehrlichia chaffeensis IgM antibody detection <1:10 <1:10 Serum Rickettsia rickettsii IgG antibody assay (units/volume) <1:16 [place] spotted fever panel < <1:10 Francisella tularensis antibody assay <1:20 NRG LYME AB G M 0.08 % 0.00-0.89 Interpretation of Lyme disease antibody assay Negative Negative Bacterial blood culture - 07/29/17 00:50 Bacterial blood culture NG NRG Serum or plasma lactate measurement (moles/volume) - 07/29/17 02:35 Serum or plasma lactate measurement (moles/volume) 2.70 mmol/L 0.50-2.00 Complete urinalysis with reflex to culture - 07/29/17 03:10 Urine color determination YELLOW NRG Urine clarity determination CLEAR NRG Urine pH measurement by test strip 5 5-9 Specific gravity of urine by test strip 1.020 1.016- 1.022 Urine protein assay by test strip, semi-quantitative 1+ NEGATIVE Urine glucose detection by automated test strip NEGATIVE NEGATIVE Erythrocytes detection in urine sediment by light microscopy NEGATIVE NEGATIVE Urine ketones detection by automated test strip 1+ NEGATIVE Urine nitrite detection by test strip NEGATIVE NEGATIVE Urine total bilirubin detection by test strip NEGATIVE NEGATIVE Urine urobilinogen measurement by automated test strip (mass/volume) NORMAL NORMAL Urine leukocyte esterase detection by dipstick 1+ NEGATIVE Automated urine sediment erythrocyte count by microscopy (number/high power field) NONE NRG Automated urine sediment leukocyte count by microscopy (number/high power field ) [HPF] NRG Bacteria detection in urine sediment by light microscopy TRACE NRG Squamous epithelial cells detection in urine sediment by light microscopy RARE NRG Crystals detection in urine sediment by light microscopy NONE NRG Casts detection in urine sediment by light microscopy PRESENT NRG Mucus detection in urine sediment by light microscopy MODERATE NRG Complete urinalysis with reflex to culture NO NRG Hyaline casts detection in urine sediment by light microscopy 25-50 NRG Urine drug screening test - 07/29/17 03:10 Urine phencyclidine detection by screening method NEGATIVE NEGATIVE Urine benzodiazepines detection by screening method NEGATIVE NEGATIVE Urine cocaine detection NEGATIVE NEGATIVE Urine amphetamines detection by screening method NEGATIVE NEGATIVE Urine methamphetamine detection by screening method NEGATIVE NEGATIVE Urine cannabinoids detection by screening method NEGATIVE NEGATIVE Urine opiates detection by screening method NEGATIVE NEGATIVE Urine barbiturates detection NEGATIVE NEGATIVE Screening urine tricyclic antidepressants detection NEGATIVE NEGATIVE Urine methadone detection by screening method NEGATIVE NEGATIVE Urine oxycodone detection NEGATIVE NEGATIVE Urine propoxyphene detection NEGATIVE NEGATIVE Complete blood count (CBC) with automated white blood cell (WBC) differential - 07/29/17 05:05 Blood leukocytes automated count (number/volume) 14.5 10*3/uL 4.3-11.0 Blood erythrocytes automated count (number/volume) 3.22 10*6/uL 4.35-5.85 Venous blood hemoglobin measurement (mass/volume) 9.4 g/dL 13.3-17.7 Blood hematocrit (volume fraction) 29 % 40-54 Automated erythrocyte mean corpuscular volume 89 [foz_us] 80-99 Automated erythrocyte mean corpuscular hemoglobin (mass per erythrocyte) 29 pg 25-34 Automated erythrocyte mean corpuscular hemoglobin concentration measurement ( mass/volume) 33 g/dL 32-36 Automated erythrocyte distribution width ratio 15.4 % 10.0-14.5 Automated blood platelet count (count/volume) 191 10*3/uL 130-400 Automated blood platelet mean volume measurement 10.7 [foz_us] 7.4-10.4 Automated blood neutrophils/100 leukocytes 81 % 42-75 Automated blood lymphocytes/100 leukocytes 13 % 12-44 Blood monocytes/100 leukocytes 6 % 0-12 Automated blood eosinophils/100 leukocytes 0 % 0-10 Automated blood basophils/100 leukocytes 0 % 0-10 Blood neutrophils automated count (number/volume) 11.7 10*3 1.8-7.8 Blood lymphocytes automated count (number/volume) 1.9 10*3 1.0-4.0 Blood monocytes automated count (number/volume) 0.9 10*3 0.0-1.0 Automated eosinophil count 0.0 10*3/uL 0.0-0.3 Automated blood basophil count (count/volume) 0.0 10*3/uL 0.0-0.1 Comprehensive metabolic panel - 07/29/17 05:05 Serum or plasma sodium measurement (moles/volume) 141 mmol/L 135-145 Serum or plasma potassium measurement (moles/volume) 4.8 mmol/L 3.6-5.0 Serum or plasma chloride measurement (moles/volume) 111 mmol/L 98-107 Carbon dioxide 22 mmol/L 21-32 Serum or plasma anion gap determination (moles/volume) 8 mmol/L 5-14 Serum or plasma urea nitrogen measurement (mass/volume) 74 mg/dL 7-18 Serum or plasma creatinine measurement (mass/volume) 1.14 mg/dL 0.60-1.30 Serum or plasma urea nitrogen/creatinine mass ratio 65 NRG Serum or plasma creatinine measurement with calculation of estimated glomerular filtration rate > NRG Serum or plasma glucose measurement (mass/volume) 97 mg/dL 70-105 Serum or plasma calcium measurement (mass/volume) 8.0 mg/dL 8.5-10.1 Serum or plasma total bilirubin measurement (mass/volume) 0.3 mg/dL 0.1-1.0 Serum or plasma alkaline phosphatase measurement (enzymatic activity/volume) 52 U/L 40-136 Serum or plasma aspartate aminotransferase measurement (enzymatic activity/ volume) 30 U/L 5-34 Serum or plasma alanine aminotransferase measurement (enzymatic activity/volume ) 14 U/L 0-55 Serum or plasma protein measurement (mass/volume) 5.3 g/dL 6.4-8.2 Serum or plasma albumin measurement (mass/volume) 3.0 g/dL 3.2-4.5 Serum or plasma phosphate measurement (mass/volume) - 07/29/17 05:05 Serum or plasma phosphate measurement (mass/volume) 3.6 mg/dL 2.3-4.7 Magnesium - 07/29/17 05:05 Magnesium 1.9 mg/dL 1.8-2.4 Blood lactic acid measurement (moles/volume) - 07/29/17 08:16 Blood lactic acid measurement (moles/volume) 0.94 mmol/L 0.50-2.00 Blood lactic acid measurement (moles/volume) - 07/29/17 12:03 Blood lactic acid measurement (moles/volume) 0.92 mmol/L 0.50-2.00 Automated blood complete blood count (hemogram) panel - 07/30/17 05:50 Blood leukocytes automated count (number/volume) 8.4 10*3/uL 4.3-11.0 Blood erythrocytes automated count (number/volume) 2.67 10*6/uL 4.35-5.85 Venous blood hemoglobin measurement (mass/volume) 7.7 g/dL 13.3-17.7 Blood hematocrit (volume fraction) 24 % 40-54 Automated erythrocyte mean corpuscular volume 90 [foz_us] 80-99 Automated erythrocyte mean corpuscular hemoglobin (mass per erythrocyte) 29 pg 25-34 Automated erythrocyte mean corpuscular hemoglobin concentration measurement ( mass/volume) 32 g/dL 32-36 Automated erythrocyte distribution width ratio 15.7 % 10.0-14.5 Automated blood platelet count (count/volume) 173 10*3/uL 130-400 Automated blood platelet mean volume measurement 10.9 [foz_us] 7.4-10.4 Comprehensive metabolic panel - 07/30/17 05:50 Serum or plasma sodium measurement (moles/volume) 141 mmol/L 135-145 Serum or plasma potassium measurement (moles/volume) 3.6 mmol/L 3.6-5.0 Serum or plasma chloride measurement (moles/volume) 112 mmol/L 98-107 Carbon dioxide 22 mmol/L 21-32 Serum or plasma anion gap determination (moles/volume) 7 mmol/L 5-14 Serum or plasma urea nitrogen measurement (mass/volume) 30 mg/dL 7-18 Serum or plasma creatinine measurement (mass/volume) 0.92 mg/dL 0.60-1.30 Serum or plasma urea nitrogen/creatinine mass ratio 33 NRG Serum or plasma creatinine measurement with calculation of estimated glomerular filtration rate > NRG Serum or plasma glucose measurement (mass/volume) 87 mg/dL 70-105 Serum or plasma calcium measurement (mass/volume) 7.9 mg/dL 8.5-10.1 Serum or plasma total bilirubin measurement (mass/volume) 0.4 mg/dL 0.1-1.0 Serum or plasma alkaline phosphatase measurement (enzymatic activity/volume) 55 U/L 40-136 Serum or plasma aspartate aminotransferase measurement (enzymatic activity/ volume) 112 U/L 5-34 Serum or plasma alanine aminotransferase measurement (enzymatic activity/volume ) 35 U/L 0-55 Serum or plasma protein measurement (mass/volume) 5.2 g/dL 6.4-8.2 Serum or plasma albumin measurement (mass/volume) 3.0 g/dL 3.2-4.5 Vancomycin trough - 07/30/17 20:05 Vancomycin trough 12.8 ug/mL 10.0-20.0 Complete blood count (CBC) with automated white blood cell (WBC) differential - 07/31/17 05:40 Blood leukocytes automated count (number/volume) 6.5 10*3/uL 4.3-11.0 Blood erythrocytes automated count (number/volume) 2.45 10*6/uL 4.35-5.85 Venous blood hemoglobin measurement (mass/volume) 7.2 g/dL 13.3-17.7 Blood hematocrit (volume fraction) 22 % 40-54 Automated erythrocyte mean corpuscular volume 91 [foz_us] 80-99 Automated erythrocyte mean corpuscular hemoglobin (mass per erythrocyte) 29 pg 25-34 Automated erythrocyte mean corpuscular hemoglobin concentration measurement ( mass/volume) 32 g/dL 32-36 Automated erythrocyte distribution width ratio 15.5 % 10.0-14.5 Automated blood platelet count (count/volume) 163 10*3/uL 130-400 Automated blood platelet mean volume measurement 9.7 [foz_us] 7.4-10.4 Automated blood neutrophils/100 leukocytes 55 % 42-75 Automated blood lymphocytes/100 leukocytes 33 % 12-44 Blood monocytes/100 leukocytes 7 % 0-12 Automated blood eosinophils/100 leukocytes 5 % 0-10 Automated blood basophils/100 leukocytes 1 % 0-10 Blood neutrophils automated count (number/volume) 3.6 10*3 1.8-7.8 Blood lymphocytes automated count (number/volume) 2.1 10*3 1.0-4.0 Blood monocytes automated count (number/volume) 0.5 10*3 0.0-1.0 Automated eosinophil count 0.3 10*3/uL 0.0-0.3 Automated blood basophil count (count/volume) 0.0 10*3/uL 0.0-0.1 Comprehensive metabolic panel - 07/31/17 05:40 Serum or plasma sodium measurement (moles/volume) 140 mmol/L 135-145 Serum or plasma potassium measurement (moles/volume) 3.7 mmol/L 3.6-5.0 Serum or plasma chloride measurement (moles/volume) 111 mmol/L 98-107 Carbon dioxide 22 mmol/L 21-32 Serum or plasma anion gap determination (moles/volume) 7 mmol/L 5-14 Serum or plasma urea nitrogen measurement (mass/volume) 22 mg/dL 7-18 Serum or plasma creatinine measurement (mass/volume) 1.07 mg/dL 0.60-1.30 Serum or plasma urea nitrogen/creatinine mass ratio 21 NRG Serum or plasma creatinine measurement with calculation of estimated glomerular filtration rate > NRG Serum or plasma glucose measurement (mass/volume) 88 mg/dL 70-105 Serum or plasma calcium measurement (mass/volume) 8.1 mg/dL 8.5-10.1 Serum or plasma total bilirubin measurement (mass/volume) 0.5 mg/dL 0.1-1.0 Serum or plasma alkaline phosphatase measurement (enzymatic activity/volume) 53 U/L 40-136 Serum or plasma aspartate aminotransferase measurement (enzymatic activity/ volume) 81 U/L 5-34 Serum or plasma alanine aminotransferase measurement (enzymatic activity/volume ) 38 U/L 0-55 Serum or plasma protein measurement (mass/volume) 5.5 g/dL 6.4-8.2 Serum or plasma albumin measurement (mass/volume) 3.1 g/dL 3.2-4.5 RED CELLS LEUKO REDUCED AS1 - 07/31/17 07:00 RED CELLS LEUKO REDUCED AS1 TRANSFUSED 07/31/17 1310 NRG Blood type T Indirect antibody screen panel - 07/31/17 07:00 ABO+Rh group AP NRG Transfusion band number [id number] NRG Blood group antibody screen NEGATIVE NRG Complete blood count (CBC) with automated white blood cell (WBC) differential - 08/01/17 05:39 Blood leukocytes automated count (number/volume) 5.9 10*3/uL 4.3-11.0 Blood erythrocytes automated count (number/volume) 3.30 10*6/uL 4.35-5.85 Venous blood hemoglobin measurement (mass/volume) 9.7 g/dL 13.3-17.7 Blood hematocrit (volume fraction) 29 % 40-54 Automated erythrocyte mean corpuscular volume 88 [foz_us] 80-99 Automated erythrocyte mean corpuscular hemoglobin (mass per erythrocyte) 29 pg 25-34 Automated erythrocyte mean corpuscular hemoglobin concentration measurement ( mass/volume) 33 g/dL 32-36 Automated erythrocyte distribution width ratio 15.3 % 10.0-14.5 Automated blood platelet count (count/volume) 169 10*3/uL 130-400 Automated blood platelet mean volume measurement 10.5 [foz_us] 7.4-10.4 Automated blood neutrophils/100 leukocytes 55 % 42-75 Automated blood lymphocytes/100 leukocytes 31 % 12-44 Blood monocytes/100 leukocytes 8 % 0-12 Automated blood eosinophils/100 leukocytes 6 % 0-10 Automated blood basophils/100 leukocytes 1 % 0-10 Blood neutrophils automated count (number/volume) 3.3 10*3 1.8-7.8 Blood lymphocytes automated count (number/volume) 1.8 10*3 1.0-4.0 Blood monocytes automated count (number/volume) 0.5 10*3 0.0-1.0 Automated eosinophil count 0.4 10*3/uL 0.0-0.3 Automated blood basophil count (count/volume) 0.1 10*3/uL 0.0-0.1 Comprehensive metabolic panel - 08/01/17 05:39 Serum or plasma sodium measurement (moles/volume) 140 mmol/L 135-145 Serum or plasma potassium measurement (moles/volume) 3.6 mmol/L 3.6-5.0 Serum or plasma chloride measurement (moles/volume) 108 mmol/L 98-107 Carbon dioxide 23 mmol/L 21-32 Serum or plasma anion gap determination (moles/volume) 9 mmol/L 5-14 Serum or plasma urea nitrogen measurement (mass/volume) 17 mg/dL 7-18 Serum or plasma creatinine measurement (mass/volume) 1.04 mg/dL 0.60-1.30 Serum or plasma urea nitrogen/creatinine mass ratio 16 NRG Serum or plasma creatinine measurement with calculation of estimated glomerular filtration rate > NRG Serum or plasma glucose measurement (mass/volume) 93 mg/dL 70-105 Serum or plasma calcium measurement (mass/volume) 8.4 mg/dL 8.5-10.1 Serum or plasma total bilirubin measurement (mass/volume) 0.9 mg/dL 0.1-1.0 Serum or plasma alkaline phosphatase measurement (enzymatic activity/volume) 55 U/L 40-136 Serum or plasma aspartate aminotransferase measurement (enzymatic activity/ volume) 61 U/L 5-34 Serum or plasma alanine aminotransferase measurement (enzymatic activity/volume ) 39 U/L 0-55 Serum or plasma protein measurement (mass/volume) 6.1 g/dL 6.4-8.2 Serum or plasma albumin measurement (mass/volume) 3.3 g/dL 3.2-4.5 Complete blood count (CBC) with automated white blood cell (WBC) differential - 09/05/17 08:05 Blood leukocytes automated count (number/volume) 7.4 10*3/uL 4.3-11.0 Blood erythrocytes automated count (number/volume) 4.40 10*6/uL 4.35-5.85 Venous blood hemoglobin measurement (mass/volume) 12.4 g/dL 13.3-17.7 Blood hematocrit (volume fraction) 37 % 40-54 Automated erythrocyte mean corpuscular volume 85 [foz_us] 80-99 Automated erythrocyte mean corpuscular hemoglobin (mass per erythrocyte) 28 pg 25-34 Automated erythrocyte mean corpuscular hemoglobin concentration measurement ( mass/volume) 33 g/dL 32-36 Automated erythrocyte distribution width ratio 15.3 % 10.0-14.5 Automated blood platelet count (count/volume) 241 10*3/uL 130-400 Automated blood platelet mean volume measurement 10.1 [foz_us] 7.4-10.4 Automated blood neutrophils/100 leukocytes 60 % 42-75 Automated blood lymphocytes/100 leukocytes 27 % 12-44 Blood monocytes/100 leukocytes 9 % 0-12 Automated blood eosinophils/100 leukocytes 4 % 0-10 Automated blood basophils/100 leukocytes 1 % 0-10 Blood neutrophils automated count (number/volume) 4.4 10*3 1.8-7.8 Blood lymphocytes automated count (number/volume) 2.0 10*3 1.0-4.0 Blood monocytes automated count (number/volume) 0.7 10*3 0.0-1.0 Automated eosinophil count 0.3 10*3/uL 0.0-0.3 Automated blood basophil count (count/volume) 0.1 10*3/uL 0.0-0.1 PT panel in platelet poor plasma by coagulation assay - 09/05/17 08:05 Prothrombin time (PT) in platelet poor plasma by coagulation assay 13.5 s 12.2-14.7 INR in platelet poor plasma or blood by coagulation assay 1.0 0.8-1.4 Activated partial thromboplastin time (aPTT) in platelet poor plasma bycoagulation assay - 09/05/17 08:05 Activated partial thromboplastin time (aPTT) in platelet poor plasma bycoagulation assay 35 s 24-35 Encounters ACCT No. Visit Date/Time Discharge Status Pt. Type Provider Facility Loc./Unit Complaint [id number] 01/09/2018 00:28:00 01/09/2018 23:59:59 CLS Preadmit ALMA OJEDA MD [facility] ONC [id number] 10/10/2017 12:55:00 01/08/2018 00:01:00 DIS Outpatient ALMA OJEDA MD [facility] ONC [id number] 10/19/2017 14:15:00 11/02/2017 10:04:00 DIS Outpatient DANUTA AMBROSIO [facility] REHAB BILATERAL LEG PAIN ; UNSTEADY GAIT [id number] 09/19/2017 08:54:00 09/19/2017 23:59:59 CLS Outpatient EDIL CARDENAS DO [facility] RAD R91.8,C34.90 [id number] 09/05/2017 07:04:00 09/05/2017 14:15:00 DIS Outpatient EDIL CARDENAS DO [facility] RAD LUNG MASS [id number] 07/29/2017 03:51:00 08/01/2017 11:15:00 DIS Inpatient JAMIE BRADFORD JOSE [facility] 4TH SEVERE SEPSIS [id number] 06/13/2017 09:45:00 06/13/2017 23:59:59 CLS Preadmit JOSE LEYVA APRN [facility] RAD TERESA [id number] 06/08/2017 10:20:00 06/08/2017 23:59:59 CLS Preadmit JOSE LEYVA EVALUATION ENGINEER [facility] RT R06.00 [id number] 06/01/2017 10:45:00 06/05/2017 09:36:00 DIS Inpatient JAMIE BRADFORD JOSE [facility] 4TH SEVERE SEPSIS,PNEUMONIA, CP,PULM EDEMA [id number] 07/28/2015 10:32:00 07/28/2015 12:36:00 DIS Emergency SHEKHAR AVILES MD [facility] ER LOSS VISION LFT EYE [id number] 07/15/2015 08:00:00 07/16/2015 12:10:00 DIS Inpatient LEOPOLDO FRANKS MD [facility] ICU RIGHT CAROTID STENOSIS [id number] 07/10/2015 11:24:00 07/10/2015 23:59:59 CLS Outpatient LEOPOLDO FRANKS MD [facility] PREOP RIGHT CAROTID STENOSIS [id number] 06/24/2015 08:41:00 06/24/2015 23:59:59 CLS Outpatient BEN HENDERSON MD [facility] RAD HTN,EDEMA [id number] 07/09/2013 04:00:00 07/10/2013 09:40:00 DIS Inpatient RENE CARR, MANINDER [place] [facility] [address] [id number] 06/24/2015 08:51:00 Document Registration [id number] 11/08/2012 10:01:00 Document Registration [id number] 11/07/2012 12:58:00 Document Registration [id number] 11/04/2012 14:20:00 Document Registration [id number] 01/30/2012 09:05:00 Document Registration
--- NOTE | 2019-01-07 10:30 | NUR ---
Roseanna WHELAN TO INTUBATE PT 1032- ETOMIDATE 20MG IVP GIVEN 1032- SUCCS 100MG IVP GIVEN 1032- PT INTUBATED W 7.5 ET TUBE 23CM AT TEETH. +COLOR CHANGE, =BREATH SOUNDS 1037-BANDA #16FR INSERTED, NO URINE RETURN AT THIS X 1038-PT TO VENT BY RT 1040-16FR OG INSERTED 1042-VERSED 5MG IVP 1044-FENTLY 50MCG 1045-DIPROVAN STARTED AT 40MCG/KG/HR. VS ETCO2-42,HR-124,94%ON VENT. B/P-185/93 1049- LR 1000CC TO L AC, LR 1000CC TO R HAND. 1050- FENTYL 50MCG IVP 1051- VERSED 5MG IVP 1056- CENTRAL LINE INSERTED BY Roseanna WHELAN. VS HR-113,B/P-95/63,SAT 95%VENT 1056- CEFAPINE 1GM IV 1104-DIPROVAN DECREASED TO 35MCG/KG/HR 1124-IV FLUIDS 2L INFUSED.
[2019-01-07] MEDS ORDERED: LACTATED RINGERS 1,000 ML IV ONE ×2 (10:35)
[2019-01-07] MEDS ORDERED: NS IV 500 ML 500 ML IV ONE (10:35)
[2019-01-07 10:39] LABS: ABG BASE EXCESS -4.6 MMOL/L (-2.5-2.5); ABG OXYGEN SATURATION 100 % (94-100); ABG PCO2 47 MMHG (35-45); ABG PO2 399 MMHG (79-93)
[2019-01-07 10:41] LABS: ABG PH 7.27 (7.37-7.43); ALLENS TEST YES-POS; INSPIRED O2 100%; PATIENT TEMP 96.1; VENTILATOR NO
[2019-01-07] MEDS ORDERED: PROPOFOL DRIP (ICU) 100 ML IV ONE (10:41)
[2019-01-07] MEDS ORDERED: CEFEPIME INJECTION 1,000 MG in WATER (STERILE) FOR INJECTION 10 ML IV ONE (10:45)
[2019-01-07 10:47] LABS: BASOPHILS # (AUTO) 0.1 10^3/uL (0.0-0.1); BASOPHILS % (AUTO) 0 % (0-10); EOSINOPHILS # (AUTO) 0.3 10^3/uL (0.0-0.3); EOSINOPHILS % (AUTO) 2 % (0-10); HEMATOCRIT 48 % (40-54); HEMOGLOBIN 15.5 G/DL (13.3-17.7); LYMPHOCYTES # (AUTO) 3.8 X 10^3 (1.0-4.0); LYMPHOCYTES % (AUTO) 29 % (12-44); MEAN CORPUSCULAR HEMOGLOBIN 28 PG (25-34); MEAN CORPUSCULAR HGB CONC 33 G/DL (32-36); MEAN CORPUSCULAR VOLUME 86 FL (80-99); MEAN PLATELET VOLUME 10.5 FL (7.4-10.4); MONOCYTES # (AUTO) 1.1 X 10^3 (0.0-1.0); MONOCYTES % (AUTO) 9 % (0-12); NEUTROPHILS # (AUTO) 7.6 X 10^3 (1.8-7.8); NEUTROPHILS % (AUTO) 59 % (42-75); PLATELET COUNT 290 10^3/uL (130-400); RED CELL DISTRIBUTION WIDTH 17.7 % (10.0-14.5); WHITE BLOOD COUNT 12.9 10^3/uL (4.3-11.0)
[2019-01-07 10:54] LABS: PROTHROMBIN TIME PATIENT 13.6 SEC (12.2-14.7)
[2019-01-07 11:01] LABS: ALBUMIN 4.1 GM/DL (3.2-4.5); BILIRUBIN,TOTAL 0.8 MG/DL (0.1-1.0); CALCIUM 8.8 MG/DL (8.5-10.1); CREATININE SERUM 1.33 MG/DL (0.60-1.30); POTASSIUM 4.1 MMOL/L (3.6-5.0); TOTAL PROTEIN 7.7 GM/DL (6.4-8.2)
--- NOTE | 2019-01-07 11:11 | ED Dyspnea ---
General Stated Complaint: SOB Source of Information: Patient Exam Limitations: No Limitations History of Present Illness Date Seen by Provider: Jan 07, 2019 Time Seen by Provider: 11:09 Initial Comments To ER per EMS from home with reports of shortness of breath for the past 6 months, progressively worse over the past week, culminating in a phone call to 911 for the shortness of breath today. EMS arrived and found peripheral cyanosis , respiratory distress. Attentive to apply BiPAP and did so but this was poorly tolerated by the patient. History of untreated lung cancer (CT-guided biopsy on 09/08/17 showed moderately differentiated adenocarcinoma left lung mass), COPD, current smoker. Timing/Duration: Constant, Increasing Severity: Moderate Associated Symptoms: Cough Allergies and Home Medications Allergies Coded Allergies: No Known Drug Allergies (Unverified , 11/07/12) Home Medications Doxycycline Monohydrate 100 Mg Tablet, 100 MG PO BID Prescribed by: JOSE AYALA on 08/01/17 0950 Hydrocodone Bit/Acetaminophen 1 Each Tablet, 1 TAB PO Q6H PRN for PAIN-MODERATE Prescribed by: JOSE AYALA on 08/01/17 0950 Losartan Potassium 25 Mg Tablet, 25 MG PO DAILY Prescribed by: SANDRA VARELA on 06/05/17 0845 Metoprolol Succinate 100 Mg Tab.er.24h, 100 MG PO DAILY Prescribed by: SANDRA VARELA on 06/05/17 0845 Potassium Chloride 20 Meq Tab.er.prt, 20 MEQ PO DAILY@0700 Prescribed by: SANDRA VARELA on 06/05/17 0845 Patient Home Medication List Home Medication List Reviewed: Yes Review of Systems Review of Systems Constitutional: see HPI EENTM: see HPI Respiratory: see HPI, short of breath Cardiovascular: no symptoms reported Genitourinary: no symptoms reported Musculoskeletal: no symptoms reported Skin: no symptoms reported Psychiatric/Neurological: No Symptoms Reported Past Sqswqmb-Pcjppy-Dbxfbq Hx Patient Social History Alcohol Beverage of Choice: Beer Type Used: Cigarettes 2nd Hand Smoke Exposure: No Recent Hopitalizations: No Immunizations Up To Date Tetanus Booster (TDap): Less than 5yrs PED Vaccines UTD: No Seasonal Allergies Seasonal Allergies: No Past Medical History Surgeries: Yes ( r carotid) Vascular Surgery Respiratory: Yes (Tobaccoism) Pneumonia, COPD, Emphysema Currently Using CPAP: No Currently Using BIPAP: No Cardiac: Yes (carotid stenosis) Hypertension, Peripheral Vascular Neurological: Yes (10/2012) Stroke Reproductive Disorders: No Sexually Transmitted Disease: No HIV/AIDS: No Genitourinary: No Gastrointestinal: No Musculoskeletal: Yes Scoliosis Endocrine: No HEENT: No Cancer: No Psychosocial: No Integumentary: No Blood Disorders: No Adverse Reaction/Blood Tranf: No Family Medical History Cardiovascular disease 19 MOTHER Diabetes mellitus 19 MOTHER FH: cancer G8 BROTHER (BONE) Physical Exam Vital Signs Vital Signs - First Documented 01/07/19 10:20 Temp 96.1 Pulse 126 Resp 44 B/P (MAP) 136/83 (100) Pulse Ox 98 O2 Delivery NIV/Bilevel Capillary Refill : Height, Weight, BMI Height: 5'11.00" Weight: 169lbs. 8.0oz. 76.431904ls; 23.6 BMI Method:Stated General Appearance: WD/WN, Moderate Distress HEENT: PERRL/EOMI Neck: Full Range of Motion, Normal Inspection, Other (JVD) Respiratory: Decreased Breath Sounds, Respiratory Distress, Wheezing Cardiovascular: Tachycardia (150 sinus) Gastrointestinal: Normal Bowel Sounds, Non Tender, Soft Extremity: Pedal Edema (3+ BLE), Slow Capillary Refill Neurologic/Psychiatric: Alert Skin: Normal Color, Warm/Dry Focused Exam Lactate Level 01/07/19 10:26: Lactic Acid Level 2.24*H 01/07/19 12:30: Lactic Acid Level Laboratory Tests Test 01/07/19 10:26 01/07/19 12:30 Lactic Acid Level 2.24 MMOL/L (0.50-2.00) *H Procedures/Interventions Lumen: triple Position: internal jugular (R) Anesthesia: local Volume Anesthetic (ccs): 5 Post Position: sutured Date of ETT Placement: Jan 07, 2019 Time of ETT Placement: 10:40 (Approximately) Intubation Method: orotracheal Tube Size: 7.5 Medications: Etomidate, Fentanyl, Propofol, Succinylcholine, Versed Positive End Tide CO2: Yes Breath Sounds after Intubation: bilateral-equal Intubation Complications: no complications Post Intubation Xray: Yes Prior to intubation we did confirm with him that he does want intubated if necessary and he does want CPR if necessary as well. Progress/Results/Core Measures Results/Orders Lab Results Laboratory Tests Test 01/07/19 10:26 01/07/19 10:30 01/07/19 12:10 01/07/19 12:30 Range/Units White Blood Count 12.9 H 4.3-11.0 10^3/uL Red Blood Count 5.52 4.35-5.85 10^6/uL Hemoglobin 15.5 13.3-17.7 G/DL Hematocrit 48 40-54 % Mean Corpuscular Volume 86 80-99 FL Mean Corpuscular Hemoglobin 28 25-34 PG Mean Corpuscular Hemoglobin Concent 33 32-36 G/DL Red Cell Distribution Width 17.7 H 10.0-14.5 % Platelet Count 290 130-400 10^3/uL Mean Platelet Volume 10.5 H 7.4-10.4 FL Neutrophils (%) (Auto) 59 42-75 % Lymphocytes (%) (Auto) 29 12-44 % Monocytes (%) (Auto) 9 0-12 % Eosinophils (%) (Auto) 2 0-10 % Basophils (%) (Auto) 0 0-10 % Neutrophils # (Auto) 7.6 1.8-7.8 X 10^3 Lymphocytes # (Auto) 3.8 1.0-4.0 X 10^3 Monocytes # (Auto) 1.1 H 0.0-1.0 X 10^3 Eosinophils # (Auto) 0.3 0.0-0.3 10^3/uL Basophils # (Auto) 0.1 0.0-0.1 10^3/uL Prothrombin Time 13.6 12.2-14.7 SEC INR Comment 1.0 0.8-1.4 Activated Partial Thromboplast Time 33 24-35 SEC Sodium Level 142 135-145 MMOL/L Potassium Level 4.1 3.6-5.0 MMOL/L Chloride Level 108 H 98-107 MMOL/L Carbon Dioxide Level 20 L 21-32 MMOL/L Anion Gap 14 5-14 MMOL/L Blood Urea Nitrogen 19 H 7-18 MG/DL Creatinine 1.33 H 0.60-1.30 MG/DL Estimat Glomerular Filtration Rate 54 BUN/Creatinine Ratio 14 Glucose Level 170 H 70-105 MG/DL Lactic Acid Level 2.24 *H 0.50-2.00 MMOL/L Calcium Level 8.8 8.5-10.1 MG/DL Corrected Calcium 8.7 8.5-10.1 MG/DL Total Bilirubin 0.8 0.1-1.0 MG/DL Aspartate Amino Transf (AST/SGOT) 44 H 5-34 U/L Alanine Aminotransferase (ALT/SGPT) 23 0-55 U/L Alkaline Phosphatase 106 40-136 U/L Troponin I 1.664 *H <0.028 NG/ML B-Type Natriuretic Peptide 848.8 H <100.0 PG/ML Total Protein 7.7 6.4-8.2 GM/DL Albumin 4.1 3.2-4.5 GM/DL Serum Alcohol < 10 <10 MG/DL Blood Gas Puncture Site L RAD Blood Gas Patient Temperature 96.1 Arterial Blood pH 7.27 *L 7.37-7.43 Arterial Blood Partial Pressure CO2 47 H 35-45 MMHG Arterial Blood Partial Pressure O2 399 H 79-93 MMHG Arterial Blood HCO3 21 L 23-27 MMOL/L Arterial Blood Total CO2 23.0 21.0-31.0 MMOL/L Arterial Blood Oxygen Saturation 100 94-100 % Arterial Blood Base Excess -4.6 L -2.5-2.5 MMOL/L Daniel Test YES-POS Blood Gas Ventilator Setting NO Blood Gas Inspired Oxygen 100% Urine Color YELLOW Urine Clarity CLEAR Urine pH 6 5-9 Urine Specific [place] 1.015 L 1.016-1.022 Urine Protein 3+ H NEGATIVE Urine Glucose (UA) NEGATIVE NEGATIVE Urine Ketones NEGATIVE NEGATIVE Urine Nitrite NEGATIVE NEGATIVE Urine Bilirubin NEGATIVE NEGATIVE Urine Urobilinogen NORMAL NORMAL MG/DL Urine Leukocyte Esterase NEGATIVE NEGATIVE Urine RBC (Auto) 2+ H NEGATIVE Urine RBC RARE /HPF Urine WBC NONE /HPF Urine Squamous Epithelial Cells 0-2 /HPF Urine Crystals NONE /LPF Urine Bacteria NEGATIVE /HPF Urine Casts PRESENT /LPF Urine Hyaline Casts 2-5 H /LPF Urine Mucus NEGATIVE /LPF Urine Culture Indicated CULTURE PENDING Micro Results Microbiology 01/07/19 Influenza Types A,B Antigen (JÚNIOR) - Final, Complete My Orders Orders - TOBI FRANCISCO [employer] ASSEMBLER BNP (01/07/19 11:12) Aspirin Chewable Tablet (Baby Aspirin Ch (01/07/19 11:30) Alcohol (01/07/19 11:36) Ct Head Wo (01/07/19 ) Fentanyl Inj (Cancer Ctr) (Sublimaze In (01/07/19 11:49) Medications Given in ED Current Medications Medications Dose Ordered Sig/Jean Route Start Time Stop Time Status Last Admin Dose Admin Cefepime HCl 1000 mg/Sterile Water 10 ml @ 200 mls/hr ONCE ONCE IV 01/07/19 10:45 01/07/19 10:47 DC 01/07/19 10:56 200 MLS/HR Lactated Ringer's 1,000 ml @ 0 mls/hr Q0M ONCE IV 01/07/19 10:35 01/07/19 10:40 DC 01/07/19 10:49 0 MLS/HR Lactated Ringer's 1,000 ml @ 0 mls/hr Q0M ONCE IV 01/07/19 10:35 01/07/19 10:40 DC 01/07/19 10:49 0 MLS/HR Lorazepam 2 mg ONCE ONCE IVP 01/07/19 12:15 01/07/19 12:16 DC 01/07/19 12:20 2 MG Propofol 100 ml @ ud STK-MED ONCE IV 01/07/19 10:41 01/07/19 10:44 DC 01/07/19 10:45 19 MLS/HR Vital Signs/I&O 01/07/19 01/07/19 10:20 10:45 Temp 96.1 Pulse 126 124 Resp 44 12 B/P (MAP) 136/83 (100) 185/93 Pulse Ox 98 O2 Delivery NIV/Bilevel Mechanical Ventilator Progress Progress Note : Progress Note 1122- blood pressure has dropped to 83/51. Levophed started at 5 mics per minute. 2 L of lactated Ringer infusing. He's had a Antonio catheter placed for about 20-30 minutes now and still does not have any urine output. Diagnostic Imaging Diagonstic Imaging: Xray Plain Films/CT/US/NM/MRI: chest Comments NAME: MARLON GONSALEZ [facility] REC#: [id number] PT STATUS: REG ER : 1950 PHYSICIAN: KRIS FOY MD ADMIT DATE: 01/07/19/ER Draft Date of Exam:01/07/19 CHEST 1 VIEW, AP/PA ONLY CLINICAL INDICATION: Intubation with central line placement. EXAM: Portable chest x-ray, supine view. CT scan of the chest, abdomen, and pelvis without contrast dated 07/29/2017. COMPARISON: Portable chest x-ray, upright view dated 09/05/2017. FINDINGS: There is interval placement of ET tube in good position which is grossly 5.2 cm from the level of the naresh and at the T5 vertebral body level. Right IJ central line is seen with tip in the distal superior vena cava. Incompletely imaged feeding tube is seen overlying the upper abdominal region. There is interval development of diffuse bilateral lung infiltrates. There is cardiomegaly and pulmonary vascular congestion which have progressed. There is interval increased size of a nodular area of consolidation in the left lung apex, which grossly measures 4.9 cm compared to the prior study measured at 3.6 cm. This area represented a spiculated mass on the CT scan dated 07/29/2017. There is no pleural effusion or pneumothorax. There is bilateral apical pleural-parenchymal thickening/scarring seen. Bones show no significant interval abnormality. IMPRESSION: 1: There is interval development of cardiomegaly and pulmonary vascular congestion which may be related to congestive heart failure. 2: There are bilateral lung infiltrates which may be related to pneumonia or pulmonary congestion. 3: Interval placement of lines and tubes in good position, as described above. 4: Interval increased size of consolidated mass in the left lung apex region. This would be better evaluated with CT scan. Dictated on workstation # [id number] Dict: 01/07/19 1126 Trans: 01/07/19 1135 [id number] Interpreted by: LUCILLE LUONG MD Electronically signed by: NAME: MARLON GONSALEZ [facility] REC#: [id number] PT STATUS: REG ER : 1950 PHYSICIAN: TOBI RFANCISCO [employer] ASSEMBLER ADMIT DATE: 01/07/19/ER Draft Date of Exam:01/07/19 CT HEAD WO PROCEDURE: CT head without contrast. TECHNIQUE: Multiple contiguous axial images were obtained through the brain without the use of intravenous contrast. INDICATION: Seizure. Comparison is made to prior head CT from 07/28/2015. Endotracheal tube and NG tube are in place. Ventricular size is normal. There is an area of encephalomalacia high left posterior parietal lobe likely from prior infarct. No sulcal effacement or midline shift is seen. No acute intra-axial or extra-axial hemorrhage is detected. Cisterns are patent. There is an air-fluid level in the left maxillary sinus. Ethmoids are opacified. IMPRESSION: 1. Chronic changes intracranially. No acute intracranial process is detected. 2. Paranasal sinus disease. Dictated on workstation # [id number] Dict: 01/07/19 1155 Trans: 01/07/19 1200 [facility] [id number] Interpreted by: MAMADOU JENSEN MD Electronically signed by: NAME: MARLON GONSALEZ [facility] REC#: [id number] PT STATUS: REG ER : 1950 PHYSICIAN: KRIS FOY MD ADMIT DATE: 01/07/19/ER Draft Date of Exam:01/07/19 CT ANGIO CHEST W PROCEDURE: CT angiography of the chest with contrast. TECHNIQUE: Multiple contiguous axial images were obtained through the chest after uneventful bolus administration of intravenous contrast. 2D reconstructed CTA MIP acquisitions were also performed. INDICATION: Respiratory distress. COMPARISON: Correlation is made to a prior CT chest from 07/29/2017. FINDINGS: Evaluation of the pulmonary arterial system is without evidence of thromboembolism. No definite filling defects are seen within central, lobar, or segmental branches. The aorta is of normal caliber. No dissection is seen. The ET tube has its tip above the naresh. The NG tube passes into the stomach. No pericardial fluid is seen. Trace bilateral pleural effusions are seen. No axillary lymphadenopathy is seen. The previously seen spiculated mass in the left upper lobe has increased in size measuring approximately 4.8 x 3.6 cm compared with approximately 3.0 x 2.3 cm previously when measured by a similar technique. The mass does extend towards the left hilum. The pulmonary parenchyma does show diffuse interlobular septal thickening, particularly in the upper lobes. There is some compressive atelectasis or infiltrate in the bilateral lower lobes posteriorly. No other discrete mass is seen. There are some mildly prominent lymph nodes in the mediastinum and left hilum as well as the right hilum, perhaps on the basis of metastatic disease. The upper abdomen is grossly unremarkable. IMPRESSION: 1. No evidence of pulmonary embolism or thoracic aortic dissection. 2. Enlarging left upper lobe mass, consistent with the known lung carcinoma. There are enlarged lymph nodes in the mediastinum and dinorah, likely owing to metastatic disease. 3. Small bilateral pleural effusions with bibasilar infiltrates or atelectasis. There is interlobular septal thickening in the upper lobes bilaterally, consistent with either fibrotic changes versus some mild interstitial edema. Dictated on workstation # [id number] Dict: 01/07/19 1207 Trans: 01/07/19 1218 [id number] Interpreted by: MAMADOU JENSEN MD Electronically signed by: Critical Care Note Critical Care Start Time: 11:00 Stop Time: 12:10 Total Time (minutes) 70 Progress Care overseen by Dr. Foy Departure Communication (Admissions) Time/Spoke to Admitting Phy: 12:[address] Moore, who agrees to admit. Time/Spoke to Consulting Phy: 12:[address] Almendarez. He agrees to consult. prior to intubation his blood pressure was in the 180s systolic, after intubation and with sedating medication and his pressure dropped down to about 80 systolic. Levophed was started. 1155--I was called to the CT department due to apparent convulsions and inability to feel a pulse. Upon my arrival staff was doing CPR which the patient did respond to by grabbing at their arms. There was in fact no palpable pulse but I suspect this was due to hypotension. He did have a blood pressure of 100/60 with a sinus rhythm, rate in the upper 90s. He was given one amp of epinephrine, blood pressure increased to 238/100, Levophed drip was stopped, propofol was continued. He did have some apparent convulsions as well, sister is present and states that he is a binge drinker, occasionally going months without drinking and then drinking a large amount. Due to the possibility of these convulsions represent alcohol withdrawal, 2 mg of lorazepam was given. 1237-currently blood pressure is 101/63, the levophed is turned off at this time and has been for about 30 minutes now. Propofol drip continues. Heart rate has reduced into the upper 90s. His ventilator settings at this time are tidal volume of 500, PEEP of 5, rate of 18 assist control, 40% FiO2. His troponin is noted to be elevated but I suspect this to be a type II nstemi secondary to his tachycardia and respiratory distress. EKG does not show any ST elevation or depression. We will defer to cardiology. Impression Primary Impression: NSTEMI (non-ST elevated myocardial infarction) Additional Impressions: Respiratory distress COPD exacerbation Lung cancer Disposition: ADMITTED INPATIENT Condition: Critical Admissions Decision to Admit Reason: Admit from ER (General) Decision to Admit/Date: Jan 07, 2019 Time/Decision to Admit Time: 11:25 Departure-Patient Inst. Referrals: DANUTA AMBROSIO (PCP/Family) Primary Care Physician TOBI FRANCISCO APRN Jan 07, 2019 11:11
[2019-01-07] MEDS ORDERED: NOREPINEPHRINE 4 MG in NS (IVPB) 250 ML IV SCH (11:15)
[2019-01-07] MEDS ORDERED: ASPIRIN 81 MG CHEW (CHILDREN'S ASA) NG ONE (11:30)
--- NOTE | 2019-01-07 11:35 | Diagnostic Imaging Report ---
CLINICAL INDICATION: Intubation with central line placement. EXAM: Portable chest x-ray, supine view. CT scan of the chest, abdomen, and pelvis without contrast dated 07/29/2017. COMPARISON: Portable chest x-ray, upright view dated 09/05/2017. FINDINGS: There is interval placement of ET tube in good position which is grossly 5.2 cm from the level of the naresh and at the T5 vertebral body level. Right IJ central line is seen with tip in the distal superior vena cava. Incompletely imaged feeding tube is seen overlying the upper abdominal region. There is interval development of diffuse bilateral lung infiltrates. There is cardiomegaly and pulmonary vascular congestion which have progressed. There is interval increased size of a nodular area of consolidation in the left lung apex, which grossly measures 4.9 cm compared to the prior study measured at 3.6 cm. This area represented a spiculated mass on the CT scan dated 07/29/2017. There is no pleural effusion or pneumothorax. There is bilateral apical pleural-parenchymal thickening/scarring seen. Bones show no significant interval abnormality. IMPRESSION: 1: There is interval development of cardiomegaly and pulmonary vascular congestion which may be related to congestive heart failure. 2: There are bilateral lung infiltrates which may be related to pneumonia or pulmonary congestion. 3: Interval placement of lines and tubes in good position, as described above. 4: Interval increased size of consolidated mass in the left lung apex region. This would be better evaluated with CT scan. Dictated by: Dictated on workstation # [id number]
[2019-01-07] MEDS ORDERED: fentaNYL INJ 100 MCG/2 ML (CANCER CENTER) ONE (11:49)
--- NOTE | 2019-01-07 11:57 | History & Physical-Hospitalist ---
History of Present Illness HPI/Chief Complaint Pt is a 68yoCM with a PMH of adenocarcinoma of lung diagnosed in 2017 currently under no treatment, COPD, tobacco abuse who presented to the ER due to SOB and lower extremity edema. He is intubated and sedated and unable to provide any history. All history obtained from the records. He called EMS due to worsening of shortness of breath today and when they arrived he was in extremis and CPAP was attempted but he did not tolerate it well. He was emergently intubated in the ER on arrival. He was sent toe CTA to rule out PE and in radiology has transient episodes of hypotension where they thought pulse was lost and compressions were started. This occurred twice per report. He received epi x1. There as concern that he possibly had a seizure as well. There is also report that he binges drinks alcohol. I am unable to confirm any of this as he is currently intubated and sedated. Exam Limitations: clinical condition Date Seen 01/07/19 Time Seen by a Provider: 14:38 Attending Physician Juan Francisco Hayes MD PCP Jass Connor Referring Physician Date of Admission Home Medications & Allergies Home Medications Reviewed patient Home Medication Reconciliation performed by pharmacy medication reconciliations software validation technician and/or nursing. Patients Allergies have been reviewed. Allergies Allergies Coded Allergies No Known Drug Allergies (Unverified11/07/12) Past Ulahtqd-Wtzucr-Ixkyeq Hx Past Med/Social Hx: Reviewed Nursing Past Med/Soc Hx Patient Social History Alcohol Beverage of Choice: Beer (reportedly heavy alcohol use) Type Used: Cigarettes 2nd Hand Smoke Exposure: No Recent Foreign Travel: No Contact w/other who traveled: No Recent Hopitalizations: No Recent Infectious Disease Expo: No Immunizations Up To Date Tetanus Booster (TDap): Less than 5yrs Pediatric: No Seasonal Allergies Seasonal Allergies: No Past Medical History Surgeries: Vascular Surgery Respiratory: COPD, Pneumonia Currently Using CPAP: No Currently Using BIPAP: No Cardiac: Hypertension, Peripheral Vascular Neurological: Stroke Reproductive: No Sexually Transmitted Disease: No HIV/AIDS: No Musculoskeletal: Scoliosis Cancer: Lung Did You Recieve Any Treatments: No History of Blood Disorders: No Adverse Reaction to Blood Hardy: No Family History Reviewed Nursing Family Hx Cardiovascular disease 19 MOTHER Diabetes mellitus 19 MOTHER FH: cancer G8 BROTHER (BONE) Review of Systems ROS-Unable to Obtain: sedated and intubated Constitutional: see HPI Physical Exam Physical Exam Vital Signs Vital Signs - First Documented 01/07/19 01/07/19 01/07/19 10:20 14:14 14:15 Temp 96.1 Pulse 126 Resp 44 B/P (MAP) 136/83 (100) Pulse Ox 98 O2 Delivery NIV/Bilevel O2 Flow Rate 40.00 FiO2 40 Capillary Refill : Less Than 3 Seconds Height, Weight, BMI Height: 5'10.00" Weight: 180lbs. 8.0oz. 81.780341rq; 23.6 BMI Method:Estimated General Appearance: Chronically ill, Other (intubated and sedated) HEENT: Moist Mucous Membranes; No Scleral Icterus (L), No Scleral Icterus (R); Other (poor dentition) Respiratory: Rhonci, Other (intubated) Cardiovascular: Regular Rate, Rhythm, No JVD, No Murmur Gastrointestinal: Normal Bowel Sounds, Non Tender, Soft Genital/Rectal: Other (thorne in place) Extremity: Normal Capillary Refill, Swelling (2+ to calves bilaterally) Neurologic/Psychiatric: Other (sedated on vent) Skin: Normal Color, Warm/Dry Results Results/Procedures Labs Laboratory Tests 01/07/19 10:26 01/08/19 03:45 Patient resulted labs reviewed. Imaging: Reviewed Imaging Report Assessment/Plan Admission Diagnosis Acute Respiratory Failure Admission Status: Inpatient Order (span 2 midnights) Reason for Inpatient Admission: On vent and pressors Diagnosis/Problems Diagnosis/Problems (1) Acute respiratory failure Assessment & Plan: Intubated and on vent Pulm consulted, appreciate recs Infiltrates on CT chest Propofol for sedation Qualifiers: Respiratory failure complication: hypercapnia Qualified Codes: J96.02 - Acute respiratory failure with hypercapnia (2) Severe sepsis Assessment & Plan: Due to pneumonia Lactic elevated Was hypotensive but due to sedation Await cultures Continue Zosyn Continue IVF (3) NSTEMI (non-ST elevated myocardial infarction) Status: Acute Assessment & Plan: Cardiology consulted Appreciate recs troponin mildly elevated Trend troponin Did receive compression in radiology so likely will be further evaluated (4) LANCE (acute kidney injury) Assessment & Plan: Continue IVF 2+ RBCs on UA with 0 seen on microscopy so will check CK (5) Hypotension Status: Resolved Assessment & Plan: Likely due to sedation from intubated Not septic shock Off pressors nows Qualifiers: Hypotension type: hypotension due to drug Qualified Codes: I95.2 - Hypotension due to drugs Resolution Date/Time: 01/08/19 @ 08:00 (6) Lung cancer Status: Acute Assessment & Plan: Diagnosed in 2017 Patient did not want treatment per cancer center notes Mass enlarging per report from CT Qualifiers: Laterality: left Lung location: upper lobe of lung Qualified Codes: C34.12 - Malignant neoplasm of upper lobe, left bronchus or lung (7) Essential (primary) hypertension Assessment & Plan: Hypertensive on arrival but became hypotension with intubation and sedation Improved now- trend (8) Tobacco abuse Status: Chronic Assessment & Plan: Discuss cessation when extubated JUAN FRANCISCO HAYES MD Jan 07, 2019 11:57
--- NOTE | 2019-01-07 12:00 | Diagnostic Imaging Report ---
PROCEDURE: CT head without contrast. TECHNIQUE: Multiple contiguous axial images were obtained through the brain without the use of intravenous contrast. INDICATION: Seizure. Comparison is made to prior head CT from 07/28/2015. Endotracheal tube and NG tube are in place. Ventricular size is normal. There is an area of encephalomalacia high left posterior parietal lobe likely from prior infarct. No sulcal effacement or midline shift is seen. No acute intra-axial or extra-axial hemorrhage is detected. Cisterns are patent. There is an air-fluid level in the left maxillary sinus. Ethmoids are opacified. IMPRESSION: 1. Chronic changes intracranially. No acute intracranial process is detected. 2. Paranasal sinus disease. Dictated by: Dictated on workstation # [id number]
--- NOTE | 2019-01-07 12:10 | NUR ---
PT UA SENT TO LAB FINALLY PUTTING OUT URINE
[2019-01-07] MEDS ORDERED: LORazepam INJ 2 MG/ML (ATIVAN) VIAL IVP ONE (12:15)
[2019-01-07 12:18] LABS: BILIRUBIN,URINE NEGATIVE (NEGATIVE); CLARITY,URINE CLEAR; COLOR,URINE YELLOW; GLUCOSE, URINE (UA) NEGATIVE (NEGATIVE); KETONES,URINE NEGATIVE (NEGATIVE); LEUKOCYTE ESTERASE ,URINE NEGATIVE (NEGATIVE); NITRITE,URINE NEGATIVE (NEGATIVE); PH,URINE 6 (5-9); PROTEIN,URINE 3+ (NEGATIVE); UROBILINOGEN,URINE NORMAL (NORMAL)
--- NOTE | 2019-01-07 12:19 | Diagnostic Imaging Report ---
PROCEDURE: CT angiography of the chest with contrast. TECHNIQUE: Multiple contiguous axial images were obtained through the chest after uneventful bolus administration of intravenous contrast. 2D reconstructed CTA MIP acquisitions were also performed. INDICATION: Respiratory distress. COMPARISON: Correlation is made to a prior CT chest from 07/29/2017. FINDINGS: Evaluation of the pulmonary arterial system is without evidence of thromboembolism. No definite filling defects are seen within central, lobar, or segmental branches. The aorta is of normal caliber. No dissection is seen. The ET tube has its tip above the naresh. The NG tube passes into the stomach. No pericardial fluid is seen. Trace bilateral pleural effusions are seen. No axillary lymphadenopathy is seen. The previously seen spiculated mass in the left upper lobe has increased in size measuring approximately 4.8 x 3.6 cm compared with approximately 3.0 x 2.3 cm previously when measured by a similar technique. The mass does extend towards the left hilum. The pulmonary parenchyma does show diffuse interlobular septal thickening, particularly in the upper lobes. There is some compressive atelectasis or infiltrate in the bilateral lower lobes posteriorly. No other discrete mass is seen. There are some mildly prominent lymph nodes in the mediastinum and left hilum as well as the right hilum, perhaps on the basis of metastatic disease. The upper abdomen is grossly unremarkable. IMPRESSION: 1. No evidence of pulmonary embolism or thoracic aortic dissection. 2. Enlarging left upper lobe mass, consistent with the known lung carcinoma. There are enlarged lymph nodes in the mediastinum and dinorah, likely owing to metastatic disease. 3. Small bilateral pleural effusions with bibasilar infiltrates or atelectasis. There is interlobular septal thickening in the upper lobes bilaterally, consistent with either fibrotic changes versus some mild interstitial edema. Dictated by: Dictated on workstation # [id number]
--- NOTE | 2019-01-07 12:23 | NUR ---
VS P-94,SAT-90%,B/P95/59. PT ON VENT
[2019-01-07 12:29] LABS: BACTERIA,URINE NEGATIVE /HPF; RBC,URINE RARE /HPF; SQUAMOUS EPITHELIAL CELL,UR 0-2 /HPF
--- NOTE | 2019-01-07 12:54 | NUR ---
FAMILY IN TO SEE PT
--- OUTSIDE RECORDS SUMMARY | 2019-01-07 12:57 | XMS REPORT | Continuity of Care Document ---
Author Author [facility] Organization [facility] Address Unknown Phone Unavailable Allergies Active Description Code Type Severity Reaction Onset Reported/Identified Relationship to Patient Clinical Status Yes No Known Drug Allergies [id number] Drug Allergy Unknown N/A 11/07/2012 Medications There [...] 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, ONE EYE NOS 07/28/2015 SHEKAHR AVILES MD Ot 401.9 HYPERTENSION NOS 07/28/2015 [...] EXAMINATION 02/12/2016 LEOPOLDO FRANKS MD Ot V72.81 [id number] CARDIOVASCULAR 02/12/2016 LEOPOLDO FRANKS MD Ot V72.83 [...] 02/12/2016 GOLDEN CARR, LEOPOLDO Zaragoza Ot V72.81 [id number] CARDIOVASCULAR 02/12/2016 LEOPOLDO FRANKS MD Ot V72.83 [...] DO, JOSE Ot Z91.19 PATIENT'S NONCOMPLIANCE W [facility] MEDICAL TR 06/02/2017 JAMIE DO JOES Ot A41.9 SEPSIS, UNSPECIFIED ORGANISM 06/02/2017 AYALA [...] DO, JOSE Ot Z91.19 PATIENT'S NONCOMPLIANCE W [facility] MEDICAL TR 06/02/2017 AYALA DO, JOSE Ot [...] DO, JOSE Ot Z91.19 PATIENT'S NONCOMPLIANCE W [facility] MEDICAL TR 06/02/2017 AYALA DO, JOSE Ot [...] DO, JOSE Ot Z91.19 PATIENT'S NONCOMPLIANCE W [facility] MEDICAL TR 06/02/2017 AYALA DO, JOSE Ot [...] DO JOSE Ot Z91.19 PATIENT'S NONCOMPLIANCE W [facility] MEDICAL TR 06/02/2017 AYALA DO, JOSE Ot [...] DO, JOSE Ot Z91.19 PATIENT'S NONCOMPLIANCE W [facility] MEDICAL TR 06/02/2017 AYALA DO, JOSE Ot [...] DO, JOSE Ot Z91.19 PATIENT'S NONCOMPLIANCE W [facility] MEDICAL TR 06/03/2017 AYALA DO, JOSE Ot [...] DO JOSE Ot Z91.19 PATIENT'S NONCOMPLIANCE W [facility] MEDICAL TR 06/04/2017 JAMIE DO JOSE Ot [...] PERIPHERAL VASCULAR DISEASE, UNSPECIFIED 06/04/2017 AYALA DO JOSE Ot J18.9 PNEUMONIA, UNSPECIFIED ORGANISM 06/04/2017 AYALA DO JOSE Ot J44.9 CHRONIC OBSTRUCTIVE PULMONARY DISEASE, U 06/04/2017 AYALA DO, JOSE Ot M41.9 SCOLIOSIS, UNSPECIFIED 06/04/2017 AYALA DO, JOSE Ot R65.20 SEVERE SEPSIS WITHOUT SEPTIC SHOCK 06/04/2017 AYALA DO JOSE Ot R91.8 OTHER NONSPECIFIC ABNORMAL FINDING OF KAI 06/04/2017 AYALA DO, JOSE Ot Z91.19 PATIENT'S NONCOMPLIANCE W [facility] MEDICAL TR 06/05/2017 AYALA DO, JOSE Ot [...] DO, JOSE Ot Z91.19 PATIENT'S NONCOMPLIANCE W [facility] MEDICAL TR 06/05/2017 JAMIE DO JOSE Ot [...] AYALA DO Ot Z91.19 PATIENT'S NONCOMPLIANCE W [facility] MEDICAL TR 08/01/2017 JOSE AYALA DO Ot A41.9 SEPSIS, UNSPECIFIED ORGANISM 08/01/2017 JOSE AYALA DO Ot A93.8 OTHER SPECIFIED ARTHROPOD-BORNE VIRAL FE 08/01/2017 REECE AYALA DOI Ot D63.8 ANEMIA IN OTHER CHRONIC DISEASES CLASSIF 08/01/2017 JOSE AYALA DO Ot D72.829 ELEVATED WHITE BLOOD CELL COUNT, UNSPECI 08/01/2017 REECE AYALA DOI Ot F10.10 ALCOHOL ABUSE, UNCOMPLICATED 08/01/2017 ERECE AYALA DOI Ot F17.210 NICOTINE DEPENDENCE, CIGARETTES, [...] Ot M62.81 MUSCLE WEAKNESS (GENERALIZED) 08/01/2017 REECE AAYLA DOI Ot N17.0 ACUTE KIDNEY FAILURE WITH TUBULAR NECROS 08/01/2017 JOSE AYALA DO Ot N28.9 DISORDER OF KIDNEY AND URETER, UNSPECIFI 08/01/2017 JOSE AYALA DO Ot R91.8 OTHER NONSPECIFIC ABNORMAL FINDING OF KAI 08/01/2017 JOSE AYALA DO Ot A41.9 SEPSIS, UNSPECIFIED ORGANISM 08/01/2017 JOSE AYALA DO Ot A93.8 OTHER SPECIFIED ARTHROPOD-BORNE VIRAL FE 08/01/2017 JOSE AYALA DO Ot D63.8 ANEMIA IN OTHER CHRONIC [...] EXAMINATION 09/19/2017 LEOPOLDO FRANKS MD Ot V72.81 [id number]-[id number] CARDIOVASCULAR 09/19/2017 LEOPOLDO FRANKS MD Ot V72.83 [...] Ot R26.81 UNSTEADINESS ON FEET 11/02/2017 DANUTA AMBROSIOP Ot M79.604 PAIN IN RIGHT LEG 11/02/2017 [...] EXAMINATION 01/23/2018 LEOPOLDO FRANKS MD Ot V72.81 [id number] CARDIOVASCULAR 01/23/2018 LEOPOLDO FRANKS MD Ot V72.83 [...] EXAMINATION 02/08/2018 LEOPOLDO FRANKS MD Ot V72.81 [id number] CARDIOVASCULAR 02/08/2018 LEOPOLDO FRANKS MD Ot V72.83 EXAM PRE-OPERATIVE NEC 02/08/2018 LEOPOLDO FRANKS MD Ot V74.8 SCREEN-BACTERIAL DIS NEC 02/08/2018 EDIL CARDENAS DO Ot 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 NEOPLASM OF UNSP PART OF UNSP 02/08/2018 EDIL CARDENAS DO Ot 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 NEOPLASM OF UNSP PART OF UNSP Procedures Code Description Performed By Performed On 00.40 PROCEDURE ON SINGLE VESSEL 07/15/2015 38.12 HEAD NECK ENDARTER NEC 07/15/2015 [id number] DRAINAGE OF LEFT UPPER LUNG LOBE WITH [...] identification in bronchial specimen by aerobe culture [facility] Mycobacterium species detection by organism specific culture - 06/02/17 07:40 Mycobacterium species detection by organism specific culture FOOTNOTE NRG Fungus culture - 06/02/17 07:40 Fungus culture NG [facility] Vancomycin trough - 06/02/17 12:00 Vancomycin trough [...] Rickettsia rickettsii IgG antibody assay (units/volume) <1:16 [place] spotted fever panel < <1:10 Francisella tularensis [...] ABO+Rh group AP NRG Transfusion band number [id number] NRG Blood group antibody screen NEGATIVE NRG [...] Status Pt. Type Provider Facility Loc./Unit Complaint [id number] 01/09/2018 00:28:00 01/09/2018 23:59:59 CLS Preadmit ALMA OJEDA MD [facility] ONC [id number] 10/10/2017 12:55:00 01/08/2018 00:01:00 DIS Outpatient ALMA OJEDA MD [facility] ONC [id number] 10/19/2017 14:15:00 11/02/2017 10:04:00 DIS Outpatient DANUTA AMBROSIO [facility] REHAB BILATERAL LEG PAIN ; UNSTEADY GAIT [id number] 09/19/2017 08:54:00 09/19/2017 23:59:59 CLS Outpatient EDIL CARDENAS DO [facility] RAD R91.8,C34.90 [id number] 09/05/2017 07:04:00 09/05/2017 14:15:00 DIS Outpatient EDIL CARDENAS DO [facility] RAD LUNG MASS [id number] 07/29/2017 03:51:00 08/01/2017 11:15:00 DIS Inpatient JAMIE BRADFORD JOSE [facility] 4TH SEVERE SEPSIS [id number] 06/13/2017 09:45:00 06/13/2017 23:59:59 CLS Preadmit JOSE LEYVA APRN [facility] RAD TERESA [id number] 06/08/2017 10:20:00 06/08/2017 23:59:59 CLS Preadmit JOSE LEYVA PERSONNEL ADVISER [facility] RT R06.00 [id number] 06/01/2017 10:45:00 06/05/2017 09:36:00 DIS Inpatient JAMIE BRADFORD JOSE [facility] 4TH SEVERE SEPSIS,PNEUMONIA, CP,PULM EDEMA [id number] 07/28/2015 10:32:00 07/28/2015 12:36:00 DIS Emergency SHEKHAR AVILES MD [facility] ER LOSS VISION LFT EYE [id number] 07/15/2015 08:00:00 07/16/2015 12:10:00 DIS Inpatient LEOPOLDO FRANKS MD [facility] ICU RIGHT CAROTID STENOSIS [id number] 07/10/2015 11:24:00 07/10/2015 23:59:59 CLS Outpatient LEOPOLDO FRANKS MD [facility] PREOP RIGHT CAROTID STENOSIS [id number] 06/24/2015 08:41:00 06/24/2015 23:59:59 CLS Outpatient BEN HENDERSON MD [facility] RAD HTN,EDEMA [id number] 07/09/2013 04:00:00 07/10/2013 09:40:00 DIS Inpatient RENE CARR, MANINDER [place] [facility] [address] [id number] 06/24/2015 08:51:00 Document Registration [id number] 11/08/2012 10:01:00 Document Registration [id number] 11/07/2012 12:58:00 Document Registration [id number] 11/04/2012 14:20:00 Document Registration [id number] 01/30/2012 09:05:00 Document Registration
[2019-01-07] MEDS ORDERED: PIPERACILLIN/TAZO 4.5 GM/NS 100 ML IV NR ×2 (14:00)
[2019-01-07] MEDS ORDERED: 1/2 NS IV SOLUTION 1,000 ML IV PRN (14:26)
[2019-01-07] MEDS ORDERED: RT-ALBUTEROL/IPRATROPIUM 3 ML (DUONEB) VIAL INH PRN (14:30)
[2019-01-07] MEDS ORDERED: THIAMINE 100 MG/ML 2 ML (VITAMIN B-1) VIAL IV ONE (14:30)
[2019-01-07] MEDS ORDERED: LORazepam INJ 2 MG/ML (ATIVAN) VIAL IM/IV PRN (14:30)
[2019-01-07] MEDS ORDERED: D5 1/2 NS 1000 ML IV SOLUTION 1,000 ML IV PRN (14:30)
--- NOTE | 2019-01-07 14:51 | NUR ---
Initial visit with pt's family in ICU. Accompanied them to pt's room, introduced self and offered supportive presence. No requests at this time. Pt is intubated at this time.
[2019-01-07] MEDS: methylPREDNISolone 40 MG/ML (Solu-MEDROL) VIAL IV SCH ×2 (14:56→21:29)
[2019-01-07] MEDS: PANTOPRAZOLE 40 MG (PROTONIX) VIAL IV SCH (14:56)
[2019-01-07] MEDS: ENOXAPARIN 40 MG/0.4 ML (LOVENOX) SYR SC SCH (14:57)
[2019-01-07] MEDS: ASPIRIN 81 MG CHEW (CHILDREN'S ASA) NG SCH (14:57)
[2019-01-07] MEDS: LACTATED RINGERS 1,000 ML IV SCH ×2 (14:58→22:49)
--- NOTE | 2019-01-07 15:42 | Consultation-Cardiology ---
HPI-Cardiology Cardiology Consultation: Date of Consultation 01/07/19 Time Seen by a Provider: 15:10 Date of Admission 01-07-19 Attending Physician Helen Hayes MD Admitting Physician Jass Connor Consulting Physician Otoniel Almendarez MD HPI: Chief Complaint: Respiratory failure Elevated troponin Mr. Padilla is a 68 year old male admitted to ICU 7 from the ED with respiratory failure. He has several family members at the bedside. He is currently intubated and sedated and unable to provide any history. Family reports he lives at home alone. They state they check on him frequently. They report he called his brother early this morning and said he was feeling more SOB. His sister reports she went to his house and he was very SOB. She reports she called EMS. She denies him c/o CP. They report he does have lung cancer diagnosed 2 years ago for which he has chosen no treatment. They report he does binge drink. He continues to smoke cigs. They also report he takes no medications other than an ASA. Review of Systems-Cardiology Review of Systems Other comments Unable to obtain d/t intubation and sedation NHZ-Xyvnky-Btlfvi Hx Patient Social History Alcohol Use: Regular Use Recreational Drug Use: No Type Used: Cigarettes 2nd Hand Smoke Exposure: No Recent Foreign Travel: No Recent Infectious Disease Expo: No Hospitalization with Isolation: Denies Immunizations Up To Date Tetanus Booster (TDap): Less than 5yrs Past Medical History PMH As described under Assessment. Family Medical History Family Medical History: He reports his mother had DM and CAD. Family History: Cardiovascular disease 19 MOTHER Diabetes mellitus 19 MOTHER FH: cancer G8 BROTHER (BONE) Allergies and Home Medications Allergies Coded Allergies: No Known Drug Allergies (Unverified , 11/07/12) Home Medications No Active Prescriptions or Reported Meds Physical Exam-Cardiology Physical Exam Vital Signs/I&O 01/07/19 01/07/19 01/07/19 01/07/19 20:00 20:00 20:00 20:20 Temp 94.0 Pulse 84 85 Resp 20 25 B/P (MAP) 141/81 (101) Pulse Ox 97 97 97 O2 Delivery Mechanical Ventilator Mechanical Ventilator O2 Flow Rate 30.00 FiO2 30 30 01/07/19 01/07/19 01/07/19 01/07/19 21:00 21:25 22:00 22:15 Temp 95.2 Pulse 79 84 80 Resp 24 24 24 B/P (MAP) 132/73 (92) 126/68 (87) Pulse Ox 97 97 98 O2 Delivery Mechanical Ventilator Mechanical Ventilator O2 Flow Rate 30.00 30.00 FiO2 30 01/07/19 01/07/19 01/07/19 01/07/19 22:25 23:00 23:20 23:26 Temp 95.6 97.0 Pulse 98 Resp 18 B/P (MAP) 141/77 (98) 135/80 Pulse Ox 96 O2 Delivery Mechanical Ventilator O2 Flow Rate 30.00 01/08/19 01/08/19 01/08/19 01/08/19 00:00 00:00 00:32 01:00 Pulse 96 85 99 Resp 19 27 B/P (MAP) 143/78 (99) Pulse Ox 96 95 95 O2 Delivery Mechanical Ventilator Mechanical Ventilator O2 Flow Rate 30.00 FiO2 30 30 01/08/19 01/08/19 01/08/19 01/08/19 01:00 02:00 02:13 03:00 Pulse 99 102 104 109 Resp 14 24 25 14 B/P (MAP) 117/64 (81) 124/69 (87) 130/73 (92) Pulse Ox 95 93 92 92 O2 Delivery Mechanical Ventilator Mechanical Ventilator Mechanical Ventilator O2 Flow Rate 30.00 30.00 30.00 FiO2 30 01/08/19 01/08/19 01/08/19 01/08/19 03:51 03:53 04:00 04:00 Temp 99.8 Pulse 110 Resp 18 B/P (MAP) 130/74 137/74 (95) Pulse Ox 91 90 O2 Delivery Mechanical Ventilator Mechanical Ventilator O2 Flow Rate 30.00 FiO2 30 01/08/19 01/08/19 01/08/19 01/08/19 04:02 05:00 06:00 07:02 Pulse 111 112 111 105 Resp 26 23 23 24 B/P (MAP) 141/80 (100) 134/79 (97) Pulse Ox 90 90 91 90 O2 Delivery Mechanical Ventilator Mechanical Ventilator O2 Flow Rate 30.00 30.00 FiO2 30 30 01/08/19 00:00 Intake Total 1220 ml Output Total 655 ml Balance 565 ml Capillary Refill : Less Than 3 Seconds Constitutional: other (intubated and sedated) Neck: No carotid bruit Respiratory: No accessory muscle use, No respiratory distress; chest expansion is symmetric, chest is bilaterally symmetric, other (diminished throughout; scattered rhonchi) Cardiovascular: regular rate-rhythm; No JVD; tachycardia, S1 and S2, systolic murmur Gastrointestinal: abdominal bruits Extremities: significant edema (2-3 (+) bilat LE swelling) Neurologic/Psychiatric: other (sedated, unable to cooperate with neuro exam) Skin: No rash, No ulcerations Data Review Labs Laboratory Tests 01/07/19 10:20: Total Creatine Kinase 591H 01/07/19 10:26: White Blood Count 12.9H, Red Blood Count 5.52, Hemoglobin 15.5, Hematocrit 48, Mean Corpuscular Volume 86, Mean Corpuscular Hemoglobin 28, Mean Corpuscular Hemoglobin Concent 33, Red Cell Distribution Width 17.7H, Platelet Count 290, Mean Platelet Volume 10.5H, Neutrophils (%) (Auto) 59, Lymphocytes (%) (Auto) 29 , Monocytes (%) (Auto) 9, Eosinophils (%) (Auto) 2, Basophils (%) (Auto) 0, Neutrophils # (Auto) 7.6, Lymphocytes # (Auto) 3.8, Monocytes # (Auto) 1.1H, Eosinophils # (Auto) 0.3, Basophils # (Auto) 0.1, Prothrombin Time 13.6, INR Comment 1.0, Activated Partial Thromboplast Time 33, Sodium Level 142, Potassium Level 4.1, Chloride Level 108H, Carbon Dioxide Level 20L, Anion Gap 14 , Blood Urea Nitrogen 19H, Creatinine 1.33H, Estimat Glomerular Filtration Rate 54, BUN/Creatinine Ratio 14, Glucose Level 170H, Lactic Acid Level 2.24*H, Calcium Level 8.8, Corrected Calcium 8.7, Total Bilirubin 0.8, Aspartate Amino Transf (AST/SGOT) 44H, Alanine Aminotransferase (ALT/SGPT) 23, Alkaline Phosphatase 106, Troponin I 1.664*H, B-Type Natriuretic Peptide 848.8H, Total Protein 7.7, Albumin 4.1, Serum Alcohol < 10 01/07/19 10:30: Blood Gas Puncture Site L RAD, Blood Gas Patient Temperature 96.1, Arterial Blood pH 7.27*L, Arterial Blood Partial Pressure CO2 47H, Arterial Blood Partial Pressure O2 399H, Arterial Blood HCO3 21L, Arterial Blood Total CO2 23.0 , Arterial Blood Oxygen Saturation 100, Arterial Blood Base Excess -4.6L, Daniel Test YES-POS, Blood Gas Ventilator Setting NO, Blood Gas Inspired Oxygen 100% 01/07/19 12:10: Urine Color YELLOW, Urine Clarity CLEAR, Urine pH 6, Urine Specific [place] 1.015L, Urine Protein 3+H, Urine Glucose (UA) NEGATIVE, Urine Ketones NEGATIVE, Urine Nitrite NEGATIVE, Urine Bilirubin NEGATIVE, Urine Urobilinogen NORMAL, Urine Leukocyte Esterase NEGATIVE, Urine RBC (Auto) 2+H, Urine RBC RARE, Urine WBC NONE, Urine Squamous Epithelial Cells 0-2, Urine Crystals NONE, Urine Bacteria NEGATIVE, Urine Casts PRESENT, Urine Hyaline Casts 2-5H, Urine Mucus NEGATIVE, Urine Culture Indicated CULTURE PENDING 01/07/19 12:30: Lactic Acid Level 2.80*H 01/07/19 17:20: Blood Gas Puncture Site RIGHT RADIAL, Blood Gas Patient Temperature 96.1, Arterial Blood pH 7.28*L, Arterial Blood Partial Pressure CO2 44, Arterial Blood Partial Pressure O2 68L, Arterial Blood HCO3 21L, Arterial Blood Total CO2 22.0, Arterial Blood Oxygen Saturation 93L, Arterial Blood Base Excess -5.4L , Daniel Test POSITIVE, Blood Gas Ventilator Setting YES, Blood Gas Inspired Oxygen 30% 01/07/19 18:05: Lactic Acid Level 5.06*H, Troponin I 1.155*H 01/07/19 20:35: Lactic Acid Level 6.13*H 01/07/19 23:36: Glucometer 195H 01/08/19 03:45: White Blood Count 10.2, Red Blood Count 4.29L, Hemoglobin 12.3#L, Hematocrit 37L , Mean Corpuscular Volume 87, Mean Corpuscular Hemoglobin 29, Mean Corpuscular Hemoglobin Concent 33, Red Cell Distribution Width 17.1H, Platelet Count 173, Mean Platelet Volume 10.3, Neutrophils (%) (Auto) 92H, Lymphocytes (%) (Auto) 6L , Monocytes (%) (Auto) 2, Eosinophils (%) (Auto) 0, Basophils (%) (Auto) 0, Neutrophils # (Auto) 9.3H, Lymphocytes # (Auto) 0.6L, Monocytes # (Auto) 0.2, Eosinophils # (Auto) 0.0, Basophils # (Auto) 0.0, Neutrophils % (Manual) 88, Lymphocytes % (Manual) 7, Monocytes % (Manual) 3, Band Neutrophils 2, Blood Morphology Comment NORMAL, Sodium Level 138, Potassium Level 3.9, Chloride Level 108H, Carbon Dioxide Level 18L, Anion Gap 12, Blood Urea Nitrogen 18, Creatinine 1.13, Estimat Glomerular Filtration Rate > 60, BUN/Creatinine Ratio 16, Glucose Level 141H, Lactic Acid Level 3.27*H, Calcium Level 7.9L, Corrected Calcium 8.6, Phosphorus Level 3.1, Magnesium Level 2.2, Total Bilirubin 0.3, Aspartate Amino Transf (AST/SGOT) 33, Alanine Aminotransferase (ALT/SGPT) 17, Alkaline Phosphatase 71, Total Protein 5.6L, Albumin 3.1L 01/08/19 03:55: Blood Gas Puncture Site RIGHT RADIAL, Blood Gas Patient Temperature 99.8, Arterial Blood pH 7.31*L, Arterial Blood Partial Pressure CO2 43, Arterial Blood Partial Pressure O2 69L, Arterial Blood HCO3 20L, Arterial Blood Total CO2 21.7, Arterial Blood Oxygen Saturation 92L, Arterial Blood Base Excess -4.7L , Daniel Test YES-POS, Blood Gas Ventilator Setting YES, Blood Gas Inspired Oxygen 30% 01/08/19 06:35: Lactic Acid Level 2.11*H Microbiology 01/07/19 Influenza Types A,B Antigen (JÚNIOR) - Final, Complete Radiology NAME: MARLON PADILLA [facility] REC#: [id number] PT STATUS: REG ER : 1950 PHYSICIAN: KRIS HORN MD ADMIT DATE: 01/07/19/ER Draft Date of Exam:01/07/19 CHEST 1 VIEW, AP/PA ONLY CLINICAL INDICATION: Intubation with central line placement. EXAM: Portable chest x-ray, supine view. CT scan of the chest, abdomen, and pelvis without contrast dated 07/29/2017. COMPARISON: Portable chest x-ray, upright view dated 09/05/2017. FINDINGS: There is interval placement of ET tube in good position which is grossly 5.2 cm from the level of the naresh and at the T5 vertebral body level. Right IJ central line is seen with tip in the distal superior vena cava. Incompletely imaged feeding tube is seen overlying the upper abdominal region. There is interval development of diffuse bilateral lung infiltrates. There is cardiomegaly and pulmonary vascular congestion which have progressed. There is interval increased size of a nodular area of consolidation in the left lung apex, which grossly measures 4.9 cm compared to the prior study measured at 3.6 cm. This area represented a spiculated mass on the CT scan dated 07/29/2017. There is no pleural effusion or pneumothorax. There is bilateral apical pleural-parenchymal thickening/scarring seen. Bones show no significant interval abnormality. IMPRESSION: 1: There is interval development of cardiomegaly and pulmonary vascular congestion which may be related to congestive heart failure. 2: There are bilateral lung infiltrates which may be related to pneumonia or pulmonary congestion. 3: Interval placement of lines and tubes in good position, as described above. 4: Interval increased size of consolidated mass in the left lung apex region. This would be better evaluated with CT scan. Dictated on workstation # [id number] Dict: 01/07/19 1126 Trans: 01/07/19 [id number] [id number] Interpreted by: LUCILLE LUONG MD Electronically signed by: ECG Impression ECG Initial ECG Rhythm: S.Tach A/P-Cardiology Assessment/Admission Diagnosis Acute respiratory failure - intubated and sedated - managed by pulmonary services - likely multi-factorial d/t pneumonia, acute on chronic exacerbation of COPD, acute on chronic systolic CHF Septicemia, being treated by the Medical Services Elevated troponin likely secondary to hypoxia Sinus tachycardia Acute renal insufficiency Acute on chronic systolic CHF. 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 Carpio HTN Lung mass initially seen on CXR of 06-01-17 for which he has opted for no treatment. CTA of the chest on 01-07-19 showed enlarging left upper lobe mass, consistent with the known lung carcinoma. There are enlarged lymph nodes in the mediastinum and dinorah, likely owing to metastatic disease.- pulmonary services following Discussion and Recomendations Acute respiratory failure, likely multi-factorial as noted above Sepsis - management per medical/pulmonary services Sinus tachycardia - will all low dose IV Lopressor as BP will tolerate Give Lasix as tolerated Echocardiogram to eval structure and LVEF Troponin elevation likely secondary to hypoxia Give ASA d/t known h/o carotid dz Monitor lab closely Further recs will be based on his hospital course We would like to thank medical services for this consult Clinical Quality Measures DVT/VTE Risk/Contraindication: Risk Factor Score Per Nursin RFS Level Per Nursing on Admit: 4+=Very High SANDRA VARELA Jan 07, 2019 15:42
--- NOTE | 2019-01-07 15:42 | NUR ---
UNABLE TO SPEAK WITH THE PATIENT AT THIS TIME. I SET THE PROFILE TO NO MEDICATIONS. THE [facility] HAS NOT FILLED ANYTHING FOR THE PATIENT SINCE 2017. NO RECENT RESULTS WERE RETURNED BY A SEARCH IN [employer]. I CALLED DANUTA AMBROSIO'S OFFICE AT THE [facility] IN [place], THEY HAVE NOT SEEN THE PATIENT SINCE 2016 AND [facility].
[2019-01-07] MEDS ORDERED: fentaNYL INJECTION 100 MCG/2 ML AMP IVP STA (16:05)
[2019-01-07] MEDS: THIAMINE INJECTION 100 MG, FOLIC ACID INJECTION 1 MG, MAGNESIUM SULFATE 2 GM, VITAMIN M... IV SCH ×10 (16:27→20:56)
[2019-01-07] MEDS: LORazepam INJ 2 MG/ML (ATIVAN) VIAL IV PRN ×2 (16:48→22:44)
--- NOTE | 2019-01-07 16:57 | Pulmonary Consultation ---
History of Present Illness History of Present Illness Date of Consultation 01/07/19 16:49 Time Seen by Provider: 16:49 Date of Admission History of Present Illness 68yo with hx of adenocarcinoma of lung dx 2017 (pt refused treatment), severe COPD, tobacco, and alcohol dependance presented to ED via EMS secondary to worsening SOB and LE edema. PT was intubated and sedated in ED after failing BIPAP. After intubation pt became hypotensive. During CT of chest pulse was not felt and chest compressions were started. Upon starting chest compressions pt pushed away RN. PT did receive epi x 1. I am consulted for ICU management. Allergies and Home Medications Allergies Coded Allergies: No Known Drug Allergies (Unverified , 11/07/12) Home Medications No Active Prescriptions or Reported Meds Past Rlydnjw-Imlgej-Rwrion Hx Past Med/Social Hx: Reviewed Nursing Past Med/Soc Hx Patient Social History Alcohol Use: Regular Use Number of Drinks Today: AA Alcohol Beverage of Choice: Beer (reportedly heavy alcohol use) Recreational Drug Use: No Type Used: Cigarettes 2nd Hand Smoke Exposure: No Recent Foreign Travel: No Contact w/Someone Who Travel: No Recent Infectious Disease Expo: No Recent Hopitalizations: No Immunizations Up To Date Tetanus Booster (TDap): Less than 5yrs PED Vaccines UTD: No Seasonal Allergies Seasonal Allergies: No Past Medical History Surgeries: Yes ( r carotid) Vascular Surgery Respiratory: Yes (Tobaccoism) Pneumonia, COPD, Emphysema Currently Using CPAP: No Currently Using BIPAP: No Cardiac: Yes (carotid stenosis) Hypertension, Peripheral Vascular Neurological: Yes (10/2012) Stroke Reproductive Disorders: No Sexually Transmitted Disease: No HIV/AIDS: No Genitourinary: No Gastrointestinal: No Musculoskeletal: Yes Scoliosis Endocrine: No HEENT: No Cancer: No Lung Did You Recieve Any Treatments: No Psychosocial: No Integumentary: No Blood Disorders: No Adverse Reaction/Blood Tranf: No Family Medical History Reviewed Nursing Family Hx Cardiovascular disease 19 MOTHER Diabetes mellitus 19 MOTHER FH: cancer G8 BROTHER (BONE) Review of Systems Time Seen by Provider: 16:57 Sepsis Event Evaluation Height, Weight, BMI Height: 5'10.00" Weight: 193lbs. 0.0oz. 87.579084my; 27.7 BMI Method:Estimated Exam Exam Vital Signs Date Time Temp Pulse Resp B/P (MAP) Pulse Ox O2 Delivery O2 Flow Rate FiO2 01/07/19 16:21 96 22 97 40 01/07/19 15:30 95 14 103/66 (78) 98 Mechanical Ventilator 40.00 01/07/19 15:15 98 15 101/66 (78) 97 Mechanical Ventilator 40.00 01/07/19 15:00 101 14 97/70 (79) 98 Room Air 01/07/19 15:00 101 14 102/64 (77) 98 Mechanical Ventilator 40.00 01/07/19 14:58 101 01/07/19 14:45 101 14 97/70 (79) 98 Room Air 01/07/19 14:45 101 14 97/70 (79) 98 Mechanical Ventilator 40.00 01/07/19 14:30 106 16 101/74 (83) 98 Mechanical Ventilator 40.00 01/07/19 14:30 106 16 101/74 (83) 98 Room Air 01/07/19 14:15 107 15 140/76 (97) 97 Mechanical Ventilator 40.00 01/07/19 14:15 107 15 140/76 (97) 97 Room Air 01/07/19 14:14 106 24 98 40 01/07/19 14:03 105 01/07/19 13:16 97 12 110/71 (84) 91 01/07/19 10:45 124 12 185/93 Mechanical Ventilator 01/07/19 10:20 96.1 126 44 136/83 (100) 98 NIV/Bilevel Height & Weight Height: 5'10.00" Weight: 193lbs. 0.0oz. 87.113563hk; 27.7 BMI Method:Estimated General Appearance: Chronically ill, Other (intubated and sedated) HEENT: Moist Mucous Membranes; No Scleral Icterus (L), No Scleral Icterus (R); Other (poor dentition) Neck: Full Range of Motion, Normal Inspection, Other (JVD) Respiratory: Rhonci, Other (intubated) Cardiovascular: Regular Rate, Rhythm, No JVD, No Murmur Capillary Refill: Less Than 3 Seconds Extremity: Normal Capillary Refill, Swelling (2+ to calves bilaterally) Neurologic/Psychiatric: Other (sedated on vent) Skin: Normal Color, Warm/Dry Results Lab Laboratory Tests 01/07/19 10:26 Assessment/Plan Assessment/Plan Acute on chronic respiratory failure -Continue ventilatory care Severe sepsis secondary to pneumonia Hypotension -IVF -Levophed Metabolic lactic acidosis -IVF LANCE -IVF NSTEMI -Cardiology following Lung cancer with enlarging pulmonary mass -Pt refused treatment per oncology notes Tobacco dependance -Education EDIL CARDENAS DO Jan 07, 2019 16:57
--- NOTE | 2019-01-07 17:16 | Consultation-Cardiology ---
HPI-Cardiology Cardiology Consultation: Date of Consultation 01/07/19 Time Seen by a Provider: 16:40 Date of Admission Attending Physician Helen Hayes MD Admitting Physician Jass Connor Consulting Physician SOLANGE SILVERIO MD, MA, FACP, FACC, [facility], [facility]S Physician requesting consult: Dr Hayes HPI: Chief Complaint: Respiratory failure Elevated troponin Mr. Padilla is a 68 year old male admitted to ICU 7 from the ED with respiratory failure. He has several family members at the bedside. He is currently intubated and sedated and unable to provide any history. Family reports he lives at home alone. They state they check on him frequently. They report he called his brother early this morning and said he was feeling more SOB. His sister reports she went to his house and he was very SOB. She reports she called EMS. She denies him c/o CP. They report he does have lung cancer diagnosed 2 years ago for which he has chosen no treatment. They report he does binge drink. He continues to smoke cigs. They also report he takes no medications other than an ASA. GRB-Iozqhm-Gcdbqk Hx Patient Social History Alcohol Use: Regular Use Recreational Drug Use: No Type Used: Cigarettes 2nd Hand Smoke Exposure: No Recent Foreign Travel: No Recent Infectious Disease Expo: No Hospitalization with Isolation: Denies Immunizations Up To Date Tetanus Booster (TDap): Less than 5yrs Past Medical History PMH As described under Assessment. Family Medical History Family Medical History: He reports his mother had DM and CAD. Family History: Cardiovascular disease 19 MOTHER Diabetes mellitus 19 MOTHER FH: cancer G8 BROTHER (BONE) Allergies and Home Medications Allergies Coded Allergies: No Known Drug Allergies (Unverified , 11/07/12) Home Medications No Active Prescriptions or Reported Meds Patient Home Medication List Home Medication List Reviewed: Yes Physical Exam-Cardiology Physical Exam Vital Signs/I&O 01/07/19 01/07/19 01/07/19 01/07/19 10:20 10:45 13:16 14:03 Temp 96.1 Pulse 126 124 97 105 Resp 44 12 12 B/P (MAP) 136/83 (100) 185/93 110/71 (84) Pulse Ox 98 91 O2 Delivery NIV/Bilevel Mechanical Ventilator 3/11/19 3/11/19 3/11/19 3/11/19 14:14 14:15 14:15 14:30 Pulse 106 107 107 106 Resp 24 15 15 16 B/P (MAP) 140/76 (97) 140/76 (97) 101/74 (83) Pulse Ox 98 97 97 98 O2 Delivery Room Air Mechanical Ventilator Room Air O2 Flow Rate 40.00 FiO2 40 01/07/19 01/07/19 01/07/19 01/07/19 14:30 14:45 14:45 14:58 Pulse 106 101 101 101 Resp 16 14 14 B/P (MAP) 101/74 (83) 97/70 (79) 97/70 (79) Pulse Ox 98 98 98 O2 Delivery Mechanical Ventilator Mechanical Ventilator Room Air O2 Flow Rate 40.00 40.00 01/07/19 01/07/19 01/07/19 01/07/19 15:00 15:00 15:15 15:30 Pulse 101 101 98 95 Resp 14 14 15 14 B/P (MAP) 102/64 (77) 97/70 (79) 101/66 (78) 103/66 (78) Pulse Ox 98 98 97 98 O2 Delivery Mechanical Ventilator Room Air Mechanical Ventilator Mechanical Ventilator O2 Flow Rate 40.00 40.00 40.00 01/07/19 01/07/19 16:00 16:21 Pulse 96 Resp 22 Pulse Ox 95 97 O2 Delivery Mechanical Ventilator FiO2 30 40 Capillary Refill : Less Than 3 Seconds Constitutional: other (intubated and sedated) Neck: No carotid bruit Respiratory: No accessory muscle use, No respiratory distress; chest expansion is symmetric, chest is bilaterally symmetric, other (diminished throughout; scattered rhonchi) Cardiovascular: regular rate-rhythm; No JVD; tachycardia, S1 and S2, systolic murmur Gastrointestinal: abdominal bruits Extremities: significant edema (2-3 (+) bilat LE swelling) Neurologic/Psychiatric: other (sedated, unable to cooperate with neuro exam) Skin: No rash, No ulcerations Data Review Labs Laboratory Tests 01/07/19 10:20: Total Creatine Kinase 591H 01/07/19 10:26: White Blood Count 12.9H, Red Blood Count 5.52, Hemoglobin 15.5, Hematocrit 48, Mean Corpuscular Volume 86, Mean Corpuscular Hemoglobin 28, Mean Corpuscular Hemoglobin Concent 33, Red Cell Distribution Width 17.7H, Platelet Count 290, Mean Platelet Volume 10.5H, Neutrophils (%) (Auto) 59, Lymphocytes (%) (Auto) 29 , Monocytes (%) (Auto) 9, Eosinophils (%) (Auto) 2, Basophils (%) (Auto) 0, Neutrophils # (Auto) 7.6, Lymphocytes # (Auto) 3.8, Monocytes # (Auto) 1.1H, Eosinophils # (Auto) 0.3, Basophils # (Auto) 0.1, Prothrombin Time 13.6, INR Comment 1.0, Activated Partial Thromboplast Time 33, Sodium Level 142, Potassium Level 4.1, Chloride Level 108H, Carbon Dioxide Level 20L, Anion Gap 14 , Blood Urea Nitrogen 19H, Creatinine 1.33H, Estimat Glomerular Filtration Rate 54, BUN/Creatinine Ratio 14, Glucose Level 170H, Lactic Acid Level 2.24*H, Calcium Level 8.8, Corrected Calcium 8.7, Total Bilirubin 0.8, Aspartate Amino Transf (AST/SGOT) 44H, Alanine Aminotransferase (ALT/SGPT) 23, Alkaline Phosphatase 106, Troponin I 1.664*H, B-Type Natriuretic Peptide 848.8H, Total Protein 7.7, Albumin 4.1, Serum Alcohol < 10 01/07/19 10:30: Blood Gas Puncture Site L RAD, Blood Gas Patient Temperature 96.1, Arterial Blood pH 7.27*L, Arterial Blood Partial Pressure CO2 47H, Arterial Blood Partial Pressure O2 399H, Arterial Blood HCO3 21L, Arterial Blood Total CO2 23.0 , Arterial Blood Oxygen Saturation 100, Arterial Blood Base Excess -4.6L, Daniel Test YES-POS, Blood Gas Ventilator Setting NO, Blood Gas Inspired Oxygen 100% 01/07/19 12:10: Urine Color YELLOW, Urine Clarity CLEAR, Urine pH 6, Urine Specific [place] 1.015L, Urine Protein 3+H, Urine Glucose (UA) NEGATIVE, Urine Ketones NEGATIVE, Urine Nitrite NEGATIVE, Urine Bilirubin NEGATIVE, Urine Urobilinogen NORMAL, Urine Leukocyte Esterase NEGATIVE, Urine RBC (Auto) 2+H, Urine RBC RARE, Urine WBC NONE, Urine Squamous Epithelial Cells 0-2, Urine Crystals NONE, Urine Bacteria NEGATIVE, Urine Casts PRESENT, Urine Hyaline Casts 2-5H, Urine Mucus NEGATIVE, Urine Culture Indicated CULTURE PENDING 01/07/19 12:30: Lactic Acid Level 2.80*H Microbiology 3/11/19 Influenza Types A,B Antigen (JÚNIOR) - Final, Complete A/P-Cardiology Assessment/Admission Diagnosis Acute respiratory failure - intubated and sedated - managed by pulmonary services - likely multi-factorial d/t pneumonia, acute on chronic exacerbation of COPD, acute on chronic systolic CHF Septicemia, being treated by the Medical Services Elevated troponin likely secondary to hypoxia Sinus tachycardia Acute renal insufficiency Acute on chronic systolic CHF. 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 Carpio HTN Lung mass initially seen on CXR of 06-01-17 for which he has opted for no treatment. CTA of the chest on 01-07-19 showed enlarging left upper lobe mass, consistent with the known lung carcinoma. There are enlarged lymph nodes in the mediastinum and dinorah, likely owing to metastatic disease.- pulmonary services following Discussion and Recomendations Acute respiratory failure, likely multi-factorial as noted above Sepsis - management per medical/pulmonary services Sinus tachycardia - will all low dose IV Lopressor as BP will tolerate Give Lasix as tolerated Echocardiogram to eval structure and LVEF Troponin elevation likely secondary to hypoxia Give ASA d/t known h/o carotid dz Monitor lab closely Further recs will be based on his hospital course We would like to thank medical services for this consult Clinical Quality Measures DVT/VTE Risk/Contraindication: Risk Factor Score Per Nursin RFS Level Per Nursing on Admit: 4+=Very High SOLANGE SILVERIO MD FACP FAC CCDS Jan 07, 2019 17:16
[2019-01-07 17:29] LABS: ABG BASE EXCESS -5.4 MMOL/L (-2.5-2.5); ABG OXYGEN SATURATION 93 % (94-100); ABG PCO2 44 MMHG (35-45); ABG PO2 68 MMHG (79-93)
[2019-01-07 17:32] LABS: ABG PH 7.28 (7.37-7.43)
[2019-01-07 17:33] LABS: ALLENS TEST POSITIVE; INSPIRED O2 30%; PATIENT TEMP 96.1; VENTILATOR YES
[2019-01-07] MEDS ORDERED: THIAMINE 100 MG/ML 2 ML (VITAMIN B-1) VIAL ONE (17:58)
[2019-01-07] MEDS ORDERED: NS IV 1000 ML 1,000 ML ONE (17:59)
[2019-01-07] MEDS ORDERED: NS IV 1000 ML 1,000 ML IV SCH (18:00)
[2019-01-07] MEDS: meTOprolol 5 MG/5 ML (LOPRESSOR) VIAL IV SCH ×2 (18:06→23:26)
[2019-01-07] MEDS: RT-ALBUTEROL/IPRATROPIUM 3 ML (DUONEB) VIAL INH SCH ×2 (18:32→22:14)
[2019-01-07] MEDS: PIPERACILLIN/TAZO 4.5 GM/NS 100 ML IV SCH ×2 (21:18)
[2019-01-07] MEDS: inSUlin ASPART (NovoLOG) 1 UNIT/0.01 ML (CHARGE PER UNIT) SC SCH (23:46)
[2019-01-08] VITALS (36 sets, daily range): BP systolic 116–143; BP diastolic 64–95
[2019-01-08] MEDS ORDERED: fentaNYL (OMNICELL DRIP KIT ONLY) 250 MCG/5 ML AMP ONE ×2 (00:03→06:50)
[2019-01-08] MEDS ORDERED: NS (IVPB) 100 ML ONE ×2 (00:03→06:50)
[2019-01-08] MEDS: THIAMINE INJECTION 100 MG, FOLIC ACID INJECTION 1 MG, MAGNESIUM SULFATE 2 GM, VITAMIN M... IV SCH ×10 (00:22→10:00)
[2019-01-08] MEDS: fentaNYL INJECTION 1,250 MCG in NS (IVPB) 250 ML IV SCH ×3 (00:26→12:26)
[2019-01-08] MEDS: RT-ALBUTEROL/IPRATROPIUM 3 ML (DUONEB) VIAL INH SCH ×6 (02:12→22:09)
[2019-01-08] MEDS: LACTATED RINGERS 1,000 ML IV SCH ×3 (02:18→17:53)
[2019-01-08 03:54] LABS: BASOPHILS % (AUTO) 0 % (0-10); EOSINOPHILS % (AUTO) 0 % (0-10); HEMATOCRIT 37 % (40-54); HEMOGLOBIN 12.3 G/DL (13.3-17.7); LYMPHOCYTES # (AUTO) 0.6 X 10^3 (1.0-4.0); LYMPHOCYTES % (AUTO) 6 % (12-44); MEAN CORPUSCULAR HEMOGLOBIN 29 PG (25-34); MEAN CORPUSCULAR HGB CONC 33 G/DL (32-36); MEAN CORPUSCULAR VOLUME 87 FL (80-99); MEAN PLATELET VOLUME 10.3 FL (7.4-10.4); MONOCYTES # (AUTO) 0.2 X 10^3 (0.0-1.0); MONOCYTES % (AUTO) 2 % (0-12); NEUTROPHILS # (AUTO) 9.3 X 10^3 (1.8-7.8); NEUTROPHILS % (AUTO) 92 % (42-75); PLATELET COUNT 173 10^3/uL (130-400); RED CELL DISTRIBUTION WIDTH 17.1 % (10.0-14.5); WHITE BLOOD COUNT 10.2 10^3/uL (4.3-11.0)
[2019-01-08 04:05] LABS: ABG BASE EXCESS -4.7 MMOL/L (-2.5-2.5); ABG OXYGEN SATURATION 92 % (94-100); ABG PCO2 43 MMHG (35-45); ABG PO2 69 MMHG (79-93); ABG TCO2 21.7 MMOL/L (21.0-31.0)
[2019-01-08 04:06] LABS: ABG PH 7.31 (7.37-7.43)
[2019-01-08 04:07] LABS: ALLENS TEST YES-POS; INSPIRED O2 30%; PATIENT TEMP 99.8; VENTILATOR YES
[2019-01-08] MEDS: PIPERACILLIN/TAZO 4.5 GM/NS 100 ML IV SCH ×6 (04:08→22:19)
[2019-01-08 04:12] LABS: BAND NEUTROPHILS 2 %; LYMPHOCYTES % (MANUAL) 7 %; MONOCYTES % (MANUAL) 3 %; NEUTROPHILS % (MANUAL) 88 %; RBC MORPH NORMAL
[2019-01-08 04:19] LABS: ALANINE AMINOTRANSFERASE 17 U/L (0-55); ALBUMIN 3.1 GM/DL (3.2-4.5); ALKALINE PHOSPHATASE 71 U/L (40-136); BILIRUBIN,TOTAL 0.3 MG/DL (0.1-1.0); BUN/CREATININE RATIO 16; CALCIUM 7.9 MG/DL (8.5-10.1); CARBON DIOXIDE 18 MMOL/L (21-32); CHLORIDE 108 MMOL/L (98-107); CREATININE SERUM 1.13 MG/DL (0.60-1.30); GFR ESTIMATED > 60; GLUCOSE 141 MG/DL (70-105); MAGNESIUM 2.2 MG/DL (1.8-2.4); PHOSPHORUS 3.1 MG/DL (2.3-4.7); POTASSIUM 3.9 MMOL/L (3.6-5.0); SODIUM 138 MMOL/L (135-145); TOTAL PROTEIN 5.6 GM/DL (6.4-8.2)
[2019-01-08] MEDS: POTASSIUM CL 10MEQ/50ML IVPB 50 ML IV SCH (05:00)
[2019-01-08] MEDS: inSUlin ASPART (NovoLOG) 1 UNIT/0.01 ML (CHARGE PER UNIT) SC SCH ×3 (05:01→18:38)
[2019-01-08] MEDS: KCL 20 MEQ TAB (K-DUR) PO SCH (05:01)
[2019-01-08] MEDS: MAGNESIUM 1 GM/100 ML IVPB 100 ML IV SCH (05:01)
[2019-01-08] MEDS: meTOprolol 5 MG/5 ML (LOPRESSOR) VIAL IV SCH ×3 (06:32→18:42)
[2019-01-08] MEDS: methylPREDNISolone 40 MG/ML (Solu-MEDROL) VIAL IV SCH ×3 (06:32→22:19)
--- NOTE | 2019-01-08 07:59 | Progress Note-Hospitalist ---
Subjective HPI/CC On Admission Date Seen by Provider: Jan 08, 2019 Time Seen by Provider: 07:55 Pt is a 68yoCM with a PMH of adenocarcinoma of lung diagnosed in 2017 currently under no treatment, COPD, tobacco abuse who presented to the ER due to SOB and lower extremity edema. He is intubated and sedated and unable to provide any history. All history obtained from the records. He called EMS due to worsening of shortness of breath today and when they arrived he was in extremis and CPAP was attempted but he did not tolerate it well. He was emergently intubated in the ER on arrival. He was sent toe CTA to rule out PE and in radiology has transient episodes of hypotension where they thought pulse was lost and compressions were started. This occurred twice per report. He received epi x1. There as concern that he possibly had a seizure as well. There is also report that he binges drinks alcohol. I am unable to confirm any of this as he is currently intubated and sedated. Subjective/Events-last exam Pt is intubated and sedated. ROS unable to be obtained. RN states fentanyl gtt added over night but otherwise no changes. Has rested comfortably since. Focused Exam Lactate Level 01/07/19 20:35: Lactic Acid Level 6.13*H 01/08/19 03:45: Lactic Acid Level 3.27*H 01/08/19 06:35: Lactic Acid Level 2.11*H Lactic Acid Level Laboratory Tests Test 01/08/19 06:35 Lactic Acid Level 2.11 MMOL/L (0.50-2.00) *H Objective Exam Vital Signs Vital Signs Date Time Temp Pulse Resp B/P (MAP) Pulse Ox O2 Delivery O2 Flow Rate FiO2 01/08/19 07:02 105 24 90 30 01/08/19 06:00 134/79 (97) Mechanical Ventilator 30.00 01/08/19 03:53 99.8 Capillary Refill : Less Than 3 Seconds General Appearance: Chronically ill, Other (intubated and sedated) HEENT: Other (poor dentition) Neck: Other (JVD) Respiratory: Rhonci, Other (intubated) Cardiovascular: Regular Rate, Rhythm, No JVD, No Murmur Gastrointestinal: Normal Bowel Sounds, Non Tender, Soft Genital/Rectal: Other (thorne in place) Extremity: Normal Capillary Refill, Swelling (1+ to calves bilaterally) Neurologic/Psychiatric: Other (sedated on vent) Results/Procedures Lab Laboratory Tests 01/07/19 10:26 01/08/19 03:45 Patient resulted labs reviewed. Imaging: Reviewed Imaging Report Assessment/Plan Assessment and Plan Assess & Plan/Chief Complaint Acute Respiratory Failure Diagnosis/Problems Diagnosis/Problems (1) Acute respiratory failure Assessment & Plan: Intubated and on vent Pulm consulted, appreciate recs Infiltrates on CT chest Propofol/Fentanyl for sedation Flu negative Qualifiers: Respiratory failure complication: hypercapnia Qualified Codes: J96.02 - Acute respiratory failure with hypercapnia (2) Septic shock Assessment & Plan: Progress from severe sepsis to septic shock due to lactic acid overnight 2/ pneumonia Continue Zosyn Await cultures (3) NSTEMI (non-ST elevated myocardial infarction) Status: Acute Assessment & Plan: Cardiology consulted Appreciate recs troponin mildly elevated on arrival and trended down today (4) LANCE (acute kidney injury) Assessment & Plan: Improving with IVF (5) Hypotension Status: Resolved Assessment & Plan: Likely due to sedation from intubated Off pressors nows Qualifiers: Hypotension type: hypotension due to drug Qualified Codes: I95.2 - Hypotension due to drugs Resolution Date/Time: 01/08/19 @ 08:00 (6) Lung cancer Status: Acute Assessment & Plan: Diagnosed in 2017 Patient did not want treatment per cancer center notes Mass enlarging per report from CT Qualifiers: Laterality: left Lung location: upper lobe of lung Qualified Codes: C34.12 - Malignant neoplasm of upper lobe, left bronchus or lung (7) Hyperglycemia Assessment & Plan: SSI No known history of DM Likely due to critical illness and steroids (8) Essential (primary) hypertension Assessment & Plan: Hypertensive on arrival but became hypotension with intubation and sedation Improved now- trend (9) Alcohol abuse Status: Chronic Assessment & Plan: Reported per notes Continue Thiamine continue ativan prn (10) Tobacco abuse Status: Chronic Assessment & Plan: Discuss cessation when extubated Clinical Quality Measures DVT/VTE Risk/Contraindication: Risk Factor Score Per Nursin RFS Level Per Nursing on Admit: 4+=Very High JUAN FRANCISCO HARRY MD Jan 08, 2019 07:59
--- NOTE | 2019-01-08 08:00 | Diagnostic Imaging Report ---
INDICATION: Respiratory distress. COMPARISON: 01/07/2019. FINDINGS: Stable ET and enteric tubes. Stable right IJ central venous catheter. Left upper lobe mass is not changed. Bilateral perihilar and basilar heterogeneous opacities are mildly improved. No pneumothorax. Potential trace left pleural effusion. Stable cardiac silhouette. IMPRESSION: 1. Stable support devices. 2. Improving but persistent bilateral central vascular congestion/pulmonary edema. 3. Unchanged left upper lobe mass. Dictated by: Dictated on workstation # [id number]
[2019-01-08] MEDS ORDERED: LACTATED RINGERS 1,000 ML IV NR (08:15)
--- NOTE | 2019-01-08 08:19 | Pulmonary Progress Note ---
Subjective Time Seen by a Provider: 08:20 Subjective/Events-last exam Pt is sedated on vent. Sepsis Event Evaluation Height, Weight, BMI Height: 5'10.00" Weight: 200lbs. 0.0oz. 90.302782hb; 27.7 BMI Method:Estimated Focused Exam Lactate Level 01/07/19 20:35: Lactic Acid Level 6.13*H 01/08/19 03:45: Lactic Acid Level 3.27*H 01/08/19 06:35: Lactic Acid Level 2.11*H Lactic Acid Level Laboratory Tests Test 01/08/19 06:35 Lactic Acid Level 2.11 MMOL/L (0.50-2.00) *H Exam Exam Vital Signs Date Time Temp Pulse Resp B/P (MAP) Pulse Ox O2 Delivery O2 Flow Rate FiO2 01/08/19 07:02 105 24 90 30 01/08/19 06:00 111 23 134/79 (97) 91 Mechanical Ventilator 30.00 01/08/19 05:00 112 23 141/80 (100) 90 Mechanical Ventilator 30.00 01/08/19 04:02 111 26 90 30 01/08/19 04:00 90 Mechanical Ventilator 30 01/08/19 04:00 110 18 137/74 (95) 91 Mechanical Ventilator 30.00 01/08/19 03:53 99.8 01/08/19 03:51 130/74 01/08/19 03:00 109 14 130/73 (92) 92 Mechanical Ventilator 30.00 01/08/19 02:13 104 25 92 30 01/08/19 02:00 102 24 124/69 (87) 93 Mechanical Ventilator 30.00 01/08/19 01:00 99 14 117/64 (81) 95 Mechanical Ventilator 30.00 01/08/19 01:00 99 01/08/19 00:32 85 27 95 30 01/08/19 00:00 95 Mechanical Ventilator 30 01/08/19 00:00 96 19 143/78 (99) 96 Mechanical Ventilator 30.00 01/07/19 23:26 135/80 01/07/19 23:20 97.0 01/07/19 23:00 98 18 141/77 (98) 96 Mechanical Ventilator 30.00 01/07/19 22:25 95.6 01/07/19 22:15 80 24 98 30 01/07/19 22:00 84 24 126/68 (87) 97 Mechanical Ventilator 30.00 01/07/19 21:25 95.2 01/07/19 21:00 79 24 132/73 (92) 97 Mechanical Ventilator 30.00 01/07/19 20:20 85 25 97 30 01/07/19 20:00 97 Mechanical Ventilator 30 01/07/19 20:00 94.0 01/07/19 20:00 84 20 141/81 (101) 97 Mechanical Ventilator 30.00 01/07/19 19:30 136/77 01/07/19 19:00 81 23 122/69 (86) 97 Mechanical Ventilator 30.00 01/07/19 19:00 81 01/07/19 18:47 96 Mechanical Ventilator 30.00 01/07/19 18:33 80 24 96 30 01/07/19 18:00 91 24 92/53 (66) 95 Mechanical Ventilator 30.00 01/07/19 17:00 98 17 112/62 (79) 94 Mechanical Ventilator 30.00 01/07/19 16:21 96 22 97 40 01/07/19 16:00 95 Mechanical Ventilator 30 01/07/19 16:00 93 15 129/72 (91) 98 Mechanical Ventilator 40.00 01/07/19 15:30 95 14 103/66 (78) 98 Mechanical Ventilator 40.00 01/07/19 15:15 98 15 101/66 (78) 97 Mechanical Ventilator 40.00 01/07/19 15:00 101 14 97/70 (79) 98 Room Air 01/07/19 15:00 96.1 01/07/19 15:00 101 14 102/64 (77) 98 Mechanical Ventilator 40.00 01/07/19 14:58 101 01/07/19 14:45 101 14 97/70 (79) 98 Room Air 01/07/19 14:45 101 14 97/70 (79) 98 Mechanical Ventilator 40.00 01/07/19 14:30 106 16 101/74 (83) 98 Mechanical Ventilator 40.00 01/07/19 14:30 106 16 101/74 (83) 98 Room Air 01/07/19 14:15 107 15 140/76 (97) 97 Mechanical Ventilator 40.00 01/07/19 14:15 107 15 140/76 (97) 97 Room Air 01/07/19 14:14 106 24 98 40 01/07/19 14:03 105 01/07/19 13:16 97 12 110/71 (84) 91 01/07/19 10:45 124 12 185/93 Mechanical Ventilator 01/07/19 10:20 96.1 126 44 136/83 (100) 98 NIV/Bilevel I & O 01/08/19 07:00 Intake Total 4235.2 ml Output Total 1255 ml Balance 2980.2 ml Height & Weight Height: 5'10.00" Weight: 200lbs. 0.0oz. 90.138691db; 27.7 BMI Method:Estimated General Appearance: Chronically ill, Other (intubated and sedated) HEENT: Other (poor dentition) Neck: Other (JVD) Respiratory: Rhonci, Other (intubated) Cardiovascular: Regular Rate, Rhythm, No JVD, No Murmur Capillary Refill: Less Than 3 Seconds Extremity: Normal Capillary Refill, Swelling (1+ to calves bilaterally) Neurologic/Psychiatric: Other (sedated on vent) Results Lab Laboratory Tests 01/07/19 10:26 01/08/19 03:45 Assessment/Plan Assessment/Plan Acute on chronic respiratory failure -Continue ventilatory care -PT is not ready to wean yet Severe sepsis secondary to pneumonia -Zosyn -[place] cultures pending Metabolic lactic acidosis -IVF LANCE - improved -IVF NSTEMI -Cardiology following Lung cancer with enlarging pulmonary mass -Pt refused treatment per oncology notes -Consult hospice for education Tobacco dependance/alcohol abuse -HASMUKH protocol -Education Anemia -Monitor PT's overall prognosis is poor. Will consult hospice for education. EDIL CARDENAS DO Jan 08, 2019 08:19
[2019-01-08] MEDS: PANTOPRAZOLE 40 MG (PROTONIX) VIAL IV SCH (09:58)
[2019-01-08] MEDS: ASPIRIN 81 MG CHEW (CHILDREN'S ASA) NG SCH (09:59)
[2019-01-08] MEDS: THIAMINE 100 MG/ML 2 ML (VITAMIN B-1) VIAL IV SCH (09:59)
--- NOTE | 2019-01-08 10:51 | Progress Note-Cardiology ---
Cardiology SOAP Progress Note Subjective: Intubated and sedated Objective: I&O/Vital Signs 01/08/19 01/08/19 01/08/19 01/08/19 11:00 11:54 12:00 12:00 Pulse 106 106 103 Resp 24 21 B/P (MAP) 136/76 (96) 134/81 (98) Pulse Ox 94 94 94 95 O2 Delivery Mechanical Ventilator Mechanical Ventilator Mechanical Ventilator O2 Flow Rate 40.00 40.00 FiO2 40 60 01/08/19 01/08/19 01/08/19 01/08/19 12:30 12:55 13:00 14:00 Temp 98.7 Pulse 105 106 105 Resp B/P (MAP) 135/75 (95) 127/75 (92) Pulse Ox 95 95 O2 Delivery Mechanical Ventilator Mechanical Ventilator Mechanical Ventilator O2 Flow Rate 60.00 60.00 60.00 01/08/19 01/08/19 01/08/19 01/08/19 14:45 14:53 15:00 16:00 Pulse 104 102 100 Resp B/P (MAP) 122/72 (89) Pulse Ox 95 96 97 O2 Delivery Mechanical Ventilator Mechanical Ventilator Mechanical Ventilator O2 Flow Rate 60.00 FiO2 60 60 01/08/19 01/08/19 01/08/19 01/08/19 16:00 16:27 17:00 18:00 Pulse 105 106 105 99 Resp B/P (MAP) 134/81 (98) 135/80 (98) 116/68 (84) Pulse Ox 97 97 96 96 O2 Delivery Mechanical Ventilator Mechanical Ventilator Mechanical Ventilator O2 Flow Rate 60.00 60.00 60.00 FiO2 60 01/08/19 01/08/19 01/08/19 01/08/19 18:37 19:00 19:00 20:00 Pulse 101 99 97 101 Resp B/P (MAP) 122/74 (90) 140/87 (104) Pulse Ox 97 97 98 O2 Delivery Mechanical Ventilator Mechanical Ventilator O2 Flow Rate 60.00 60.00 FiO2 60 01/08/19 01/08/19 01/08/19 01/08/19 20:21 21:00 22:00 22:09 Pulse 101 105 98 96 Resp 24 B/P (MAP) 141/86 (104) 137/86 (103) Pulse Ox 100 99 98 98 O2 Delivery Mechanical Ventilator Mechanical Ventilator O2 Flow Rate 60.00 60.00 FiO2 60 60 01/08/19 00:00 Intake Total 1220 ml Output Total 655 ml Balance 565 ml Weight (Pounds): 200 Weight (Ounces): 0.0 Weight (Calculated Kilograms): 90.787194 Constitutional: other (intubated and sedated) Respiratory: No accessory muscle use, No respiratory distress; chest expansion is symmetric, chest is bilaterally symmetric, other (diminished throughout; scattered rhonchi) Cardiovascular: regular rate-rhythm; No JVD; S1 and S2, systolic murmur Gastrointestional: audible bowel sounds Extremities: significant edema (mild bilat LE swelling) Neurologic/Psychiatric: other (sedated, unable to cooperate with neuro exam) Skin: No rash, No ulcerations Results/Procedures: Labs Laboratory Tests 01/07/19 23:36: Glucometer 195H 01/08/19 03:45: White Blood Count 10.2, Red Blood Count 4.29L, Hemoglobin 12.3#L, Hematocrit 37L , Mean Corpuscular Volume 87, Mean Corpuscular Hemoglobin 29, Mean Corpuscular Hemoglobin Concent 33, Red Cell Distribution Width 17.1H, Platelet Count 173, Mean Platelet Volume 10.3, Neutrophils (%) (Auto) 92H, Lymphocytes (%) (Auto) 6L , Monocytes (%) (Auto) 2, Eosinophils (%) (Auto) 0, Basophils (%) (Auto) 0, Neutrophils # (Auto) 9.3H, Lymphocytes # (Auto) 0.6L, Monocytes # (Auto) 0.2, Eosinophils # (Auto) 0.0, Basophils # (Auto) 0.0, Neutrophils % (Manual) 88, Lymphocytes % (Manual) 7, Monocytes % (Manual) 3, Band Neutrophils 2, Blood Morphology Comment NORMAL, Sodium Level 138, Potassium Level 3.9, Chloride Level 108H, Carbon Dioxide Level 18L, Anion Gap 12, Blood Urea Nitrogen 18, Creatinine 1.13, Estimat Glomerular Filtration Rate > 60, BUN/Creatinine Ratio 16, Glucose Level 141H, Lactic Acid Level 3.27*H, Calcium Level 7.9L, Corrected Calcium 8.6, Phosphorus Level 3.1, Magnesium Level 2.2, Total Bilirubin 0.3, Aspartate Amino Transf (AST/SGOT) 33, Alanine Aminotransferase (ALT/SGPT) 17, Alkaline Phosphatase 71, Total Protein 5.6L, Albumin 3.1L 01/08/19 03:55: Blood Gas Puncture Site RIGHT RADIAL, Blood Gas Patient Temperature 99.8, Arterial Blood pH 7.31*L, Arterial Blood Partial Pressure CO2 43, Arterial Blood Partial Pressure O2 69L, Arterial Blood HCO3 20L, Arterial Blood Total CO2 21.7, Arterial Blood Oxygen Saturation 92L, Arterial Blood Base Excess -4.7L , Daniel Test YES-POS, Blood Gas Ventilator Setting YES, Blood Gas Inspired Oxygen 30% 01/08/19 06:35: Lactic Acid Level 2.11*H 01/08/19 12:24: Glucometer 142H 01/08/19 18:35: Glucometer 120H Microbiology 01/07/19 Blood Culture - Preliminary, Resulted Probable Coag Negative Staph See Comments 01/07/19 Gram Stain - Final, Resulted 01/07/19 Sputum Culture - Preliminary, Resulted Moraxella catarrhalis Usual upper respiratory aayush 01/07/19 Urine Culture - Final, Complete NO GROWTH Laboratory Tests 01/07/19 10:26 01/08/19 03:45 Procedures NAME: MARLON GONSALEZ [facility] REC#: [id number] PT STATUS: ADM IN : 1950 PHYSICIAN: EDIL CARDENAS DO ADMIT DATE: 01/07/19/ICU Draft Date of Exam:01/08/19 CHEST 1 VIEW, AP/PA ONLY INDICATION: Respiratory distress. COMPARISON: 01/07/2019. FINDINGS: Stable ET and enteric tubes. Stable right IJ central venous catheter. Left upper lobe mass is not changed. Bilateral perihilar and basilar heterogeneous opacities are mildly improved. No pneumothorax. Potential trace left pleural effusion. Stable cardiac silhouette. IMPRESSION: 1. Stable support devices. 2. Improving but persistent bilateral central vascular congestion/pulmonary edema. 3. Unchanged left upper lobe mass. Dictated on workstation # [id number] Dict: 01/08/19 [id number] Trans: 01/08/19 [id number] Interpreted by: WILLIE TYLER MD Electronically signed by: A/P: Assessment: Acute respiratory failure - intubated and sedated - managed by pulmonary services - likely multi-factorial d/t pneumonia, acute on chronic exacerbation of COPD, acute on chronic systolic CHF Septicemia, being treated by the Medical Services Elevated troponin likely secondary to hypoxia Sinus tachycardia - improved Acute renal insufficiency, improved Acute on chronic systolic CHF. 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 Carpio HTN Lung mass initially seen on CXR of 06-01-17 for which he has opted for no treatment. CTA of the chest on 01-07-19 showed enlarging left upper lobe mass, consistent with the known lung carcinoma. There are enlarged lymph nodes in the mediastinum and dinorah, likely owing to metastatic disease.- pulmonary services following Plan: Acute respiratory failure, likely multi-factorial as noted above Sepsis - management per medical/pulmonary services Sinus tachycardia - improved with BB Give Lasix as tolerated Echocardiogram to eval structure and LVEF - pending Continue ASA d/t known h/o carotid dz Monitor lab - replace electrolytes as indicated Physician Assessment Physician Assessment Still on [facility] vent Lungs: fair to good air entry Cor: reg Ext: no c/c; mild edema A&R * As documented in our note above that I updated (italics) and as noted below * Continue current regimen. Add MJ-inhib, if tolerated by bp and renal function * Monitor labs closely SANDRA VARELA Jan 08, 2019 10:51 SOLANGE SILVERIO MD FACP [facility] Jan 08, 2019 22:43
--- NOTE | 2019-01-08 12:09 | NUR ---
PALLIATIVE CARE RN received consult for hospice education. Arrived to room where patient is found to intubated. Family in room x 3 plus a good friend. Spoke with them regarding the reason for my visit. They were not surprised by my arrival. All of the family verbalize their familiarity with hospice as they have utilized it a couple times in the past. They report [facility] the best hosp[facility] out there and will use them if tit comes to that. They are already discussing discharge and how they will help him in the home . 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 It is anticipated that they will care for him in his home with [facility] for EOL care.
[2019-01-08] MEDS: ENOXAPARIN 40 MG/0.4 ML (LOVENOX) SYR SC SCH (17:54)
[2019-01-09] VITALS (49 sets, daily range): BP systolic 109–161; BP diastolic 65–108
[2019-01-09] MEDS: LACTATED RINGERS 1,000 ML IV SCH (00:36)
[2019-01-09] MEDS: meTOprolol 5 MG/5 ML (LOPRESSOR) VIAL IV SCH ×4 (00:51→17:06)
[2019-01-09] MEDS: inSUlin ASPART (NovoLOG) 1 UNIT/0.01 ML (CHARGE PER UNIT) SC SCH ×4 (00:51→17:06)
[2019-01-09] MEDS: RT-ALBUTEROL/IPRATROPIUM 3 ML (DUONEB) VIAL INH SCH ×6 (02:29→22:08)
[2019-01-09] MEDS: PIPERACILLIN/TAZO 4.5 GM/NS 100 ML IV SCH ×6 (03:37→19:58)
[2019-01-09 03:53] LABS: BASOPHILS % (AUTO) 0 % (0-10); EOSINOPHILS % (AUTO) 0 % (0-10); HEMATOCRIT 36 % (40-54); HEMOGLOBIN 12.1 G/DL (13.3-17.7); LYMPHOCYTES # (AUTO) 0.6 X 10^3 (1.0-4.0); LYMPHOCYTES % (AUTO) 5 % (12-44); MEAN CORPUSCULAR HEMOGLOBIN 29 PG (25-34); MEAN CORPUSCULAR HGB CONC 34 G/DL (32-36); MEAN CORPUSCULAR VOLUME 87 FL (80-99); MEAN PLATELET VOLUME 10.3 FL (7.4-10.4); MONOCYTES # (AUTO) 0.3 X 10^3 (0.0-1.0); MONOCYTES % (AUTO) 3 % (0-12); NEUTROPHILS # (AUTO) 11.3 X 10^3 (1.8-7.8); NEUTROPHILS % (AUTO) 93 % (42-75); PLATELET COUNT 163 10^3/uL (130-400); RED CELL DISTRIBUTION WIDTH 17.7 % (10.0-14.5); WHITE BLOOD COUNT 12.2 10^3/uL (4.3-11.0)
[2019-01-09 04:09] LABS: ABG BASE EXCESS -0.9 MMOL/L (-2.5-2.5); ABG OXYGEN SATURATION 99 % (94-100); ABG PCO2 44 MMHG (35-45); ABG PH 7.36 (7.37-7.43); ABG PO2 162 MMHG (79-93); ABG TCO2 25.4 MMOL/L (21.0-31.0)
[2019-01-09 04:14] LABS: ALLENS TEST YES-POS; INSPIRED O2 60%; PATIENT TEMP 97.2; VENTILATOR YES
[2019-01-09 04:16] LABS: BUN/CREATININE RATIO 15; CALCIUM 8.1 MG/DL (8.5-10.1); CARBON DIOXIDE 23 MMOL/L (21-32); CHLORIDE 109 MMOL/L (98-107); CREATININE SERUM 1.11 MG/DL (0.60-1.30); GFR ESTIMATED > 60; GLUCOSE 132 MG/DL (70-105); MAGNESIUM 2.4 MG/DL (1.8-2.4); PHOSPHORUS 4.2 MG/DL (2.3-4.7); POTASSIUM 4.3 MMOL/L (3.6-5.0); SODIUM 142 MMOL/L (135-145)
--- NOTE | 2019-01-09 05:23 | Pulmonary Progress Note ---
Subjective Time Seen by a Provider: 05:30 Subjective/Events-last exam PT currently on peep 10 and 60 % FI02 Sepsis Event Evaluation Height, Weight, BMI Height: 5'10.00" Weight: 200lbs. 0.0oz. 90.803017gn; 27.7 BMI Method:Estimated Focused Exam Lactate Level 01/07/19 20:35: Lactic Acid Level 6.13*H 01/08/19 03:45: Lactic Acid Level 3.27*H 01/08/19 06:35: Lactic Acid Level 2.11*H Exam Exam Vital Signs Date Time Temp Pulse Resp B/P (MAP) Pulse Ox O2 Delivery O2 Flow Rate FiO2 01/09/19 05:00 92 24 139/85 (103) 98 Mechanical Ventilator 60.00 01/09/19 04:05 114 24 99 60 01/09/19 04:00 97 Mechanical Ventilator 60 01/09/19 04:00 113 18 152/97 (115) 98 Mechanical Ventilator 60.00 01/09/19 03:00 87 23 141/87 (105) 97 Mechanical Ventilator 60.00 01/09/19 02:29 86 24 98 60 01/09/19 02:00 86 23 140/84 (102) 98 Mechanical Ventilator 60.00 01/09/19 01:00 84 24 138/84 (102) 97 Mechanical Ventilator 60.00 01/09/19 01:00 87 01/09/19 00:37 139/84 01/09/19 00:03 96 24 97 60 01/09/19 00:00 97 Mechanical Ventilator 60 01/09/19 00:00 95 23 146/87 (106) 98 Mechanical Ventilator 60.00 01/08/19 23:00 98 23 142/86 (104) 97 Mechanical Ventilator 60.00 01/08/19 22:09 96 24 98 60 01/08/19 22:00 98 24 137/86 (103) 98 Mechanical Ventilator 60.00 01/08/19 21:00 105 23 141/86 (104) 99 Mechanical Ventilator 60.00 01/08/19 20:21 101 24 100 60 01/08/19 20:00 101 23 140/87 (104) 98 Mechanical Ventilator 60.00 01/08/19 20:00 97 Mechanical Ventilator 60 01/08/19 19:00 97 23 122/74 (90) 97 Mechanical Ventilator 60.00 01/08/19 19:00 99 01/08/19 18:37 101 24 97 60 01/08/19 18:00 99 24 116/68 (84) 96 Mechanical Ventilator 60.00 01/08/19 17:00 105 23 135/80 (98) 96 Mechanical Ventilator 60.00 01/08/19 16:27 106 24 97 60 01/08/19 16:00 105 24 134/81 (98) 97 Mechanical Ventilator 60.00 01/08/19 16:00 97 Mechanical Ventilator 60 01/08/19 15:00 100 24 122/72 (89) 96 Mechanical Ventilator 60.00 01/08/19 14:53 102 24 95 60 01/08/19 14:45 104 Mechanical Ventilator 01/08/19 14:00 105 23 127/75 (92) 95 Mechanical Ventilator 60.00 01/08/19 13:00 98.7 106 24 135/75 (95) 95 Mechanical Ventilator 60.00 01/08/19 12:55 105 01/08/19 12:30 Mechanical Ventilator 60.00 01/08/19 12:00 95 Mechanical Ventilator 60 01/08/19 12:00 103 21 134/81 (98) 94 Mechanical Ventilator 40.00 01/08/19 11:54 106 24 94 40 01/08/19 11:00 106 24 136/76 (96) 94 Mechanical Ventilator 40.00 01/08/19 10:28 107 23 137/77 (97) 94 Mechanical Ventilator 40.00 01/08/19 09:19 106 01/08/19 09:00 108 23 134/74 (94) 93 Mechanical Ventilator 40.00 01/08/19 08:42 99.9 106 24 133/76 (95) 93 Mechanical Ventilator 40.00 01/08/19 08:35 107 24 93 40 01/08/19 08:00 107 23 133/76 (95) 93 Mechanical Ventilator 40.00 01/08/19 08:00 93 Mechanical Ventilator 40 01/08/19 07:24 108 01/08/19 07:08 Mechanical Ventilator 40.00 01/08/19 07:02 105 24 90 30 01/08/19 07:00 105 24 129/77 (94) 90 Mechanical Ventilator 30.00 01/08/19 06:00 111 23 134/79 (97) 91 Mechanical Ventilator 30.00 I & O 01/09/19 07:00 Intake Total 275 ml Output Total 3500 ml Balance -3225 ml Height & Weight Height: 5'10.00" Weight: 200lbs. 0.0oz. 90.463131tw; 27.7 BMI Method:Estimated General Appearance: Chronically ill, Other (intubated and sedated) HEENT: Moist Mucous Membranes; No Scleral Icterus (L), No Scleral Icterus (R); Other (poor dentition) Neck: Other (JVD) Respiratory: Rhonci, Other (intubated) Cardiovascular: Regular Rate, Rhythm, No JVD, No Murmur Capillary Refill: Less Than 3 Seconds Extremity: Normal Capillary Refill, Swelling (2+ to calves bilaterally) Neurologic/Psychiatric: Other (sedated on vent) Skin: Normal Color, Warm/Dry Results Lab Laboratory Tests 01/07/19 10:26 01/08/19 03:45 01/09/19 03:36 Assessment/Plan Assessment/Plan Acute on chronic respiratory failure -Continue ventilatory care -PT is not ready to wean yet -Decrease PEEP to 5 and decrease RR 16. Repeat ABG in 1-2hours. Severe sepsis secondary to pneumonia -Zosyn -[place] cultures pending Metabolic lactic acidosis -IVF LANCE - improved -IVF NSTEMI -Cardiology following Lung cancer with enlarging pulmonary mass -Pt refused treatment per oncology notes -Consult hospice for education Tobacco dependance/alcohol abuse -HASMUKH protocol -Education Anemia -Monitor PT's overall prognosis is poor. Will consult hospice for education. EDIL CARDENAS DO Jan 09, 2019 05:23
[2019-01-09] MEDS ORDERED: FUROSEMIDE 40 MG/4 ML INJ (LASIX) IVP ONE (05:30)
[2019-01-09] MEDS ORDERED: FUROSEMIDE 40 MG/4 ML INJ (LASIX) ONE (05:48)
[2019-01-09] MEDS: methylPREDNISolone 40 MG/ML (Solu-MEDROL) VIAL IV SCH ×3 (05:52→22:28)
[2019-01-09] MEDS: POTASSIUM CL 10MEQ/50ML IVPB 50 ML IV SCH ×4 (05:53→07:38)
[2019-01-09] MEDS: fentaNYL INJECTION 1,250 MCG in NS (IVPB) 250 ML IV SCH ×2 (05:56→17:37)
--- NOTE | 2019-01-09 07:26 | Progress Note-Hospitalist ---
Subjective HPI/CC On Admission Date Seen by Provider: Jan 09, 2019 Time Seen by Provider: 07:20 Pt is a 68yoCM with a PMH of adenocarcinoma of lung diagnosed in 2017 currently under no treatment, COPD, tobacco abuse who presented to the ER due to SOB and lower extremity edema. He is intubated and sedated and unable to provide any history. All history obtained from the records. He called EMS due to worsening of shortness of breath today and when they arrived he was in extremis and CPAP was attempted but he did not tolerate it well. He was emergently intubated in the ER on arrival. He was sent toe CTA to rule out PE and in radiology has transient episodes of hypotension where they thought pulse was lost and compressions were started. This occurred twice per report. He received epi x1. There as concern that he possibly had a seizure as well. There is also report that he binges drinks alcohol. I am unable to confirm any of this as he is currently intubated and sedated. Subjective/Events-last exam Pt is intubated and sedated. ROS unable to be obtained. No family currently at bedside. Focused Exam Lactate Level 01/07/19 20:35: Lactic Acid Level 6.13*H 01/08/19 03:45: Lactic Acid Level 3.27*H 01/08/19 06:35: Lactic Acid Level 2.11*H Objective Exam Vital Signs Vital Signs Date Time Temp Pulse Resp B/P (MAP) Pulse Ox O2 Delivery O2 Flow Rate FiO2 01/10/19 15:02 98.6 01/10/19 14:27 95 Nasal Cannula 3.00 01/10/19 13:00 101 01/10/19 13:00 14 146/118 (127) 01/10/19 12:00 40 Capillary Refill : Less Than 3 Seconds General Appearance: Chronically ill, Other (intubated and sedated) HEENT: Moist Mucous Membranes; No Scleral Icterus (L), No Scleral Icterus (R) Neck: Other (central line in place) Respiratory: Normal Breath Sounds, Other (intubated) Cardiovascular: Regular Rate, Rhythm, No JVD, No Murmur Gastrointestinal: Normal Bowel Sounds, Non Tender, Soft Genital/Rectal: Other (thorne in place) Extremity: Pedal Edema Neurologic/Psychiatric: Other (sedated on vent) Results/Procedures Lab Laboratory Tests 01/10/19 03:31 Patient resulted labs reviewed. Imaging: Reviewed Imaging Report Assessment/Plan Assessment and Plan Assess & Plan/Chief Complaint Acute Respiratory Failure Diagnosis/Problems Diagnosis/Problems (1) Acute respiratory failure Assessment & Plan: Intubated and on vent Pulm consulted, appreciate recs Infiltrates on CT chest- Continue Zosyn Propofol/Fentanyl for sedation Flu negative Qualifiers: Respiratory failure complication: hypercapnia Qualified Codes: J96.02 - Acute respiratory failure with hypercapnia (2) Septic shock Assessment & Plan: Shock aspect resolved 2/2 pneumonia Continue Zosyn Sputum growing moraxella (3) NSTEMI (non-ST elevated myocardial infarction) Status: Acute Assessment & Plan: Cardiology consulted Appreciate recs Troponin trended down (4) LANCE (acute kidney injury) Assessment & Plan: LANCE resolved- creatinine 1.11 (5) Hypotension Status: Resolved Assessment & Plan: Resolved Qualifiers: Hypotension type: hypotension due to drug Qualified Codes: I95.2 - Hypotension due to drugs Resolution Date/Time: 01/08/19 @ 08:00 (6) Lung cancer Status: Acute Assessment & Plan: Diagnosed in 2017 Patient did not want treatment per cancer center notes Mass enlarging per report from CT Palliative Care consulted and met with family Qualifiers: Laterality: left Lung location: upper lobe of lung Qualified Codes: C34.12 - Malignant neoplasm of upper lobe, left bronchus or lung (7) Hyperglycemia Assessment & Plan: SSI No known history of DM Likely due to critical illness and steroids (8) Essential (primary) hypertension Assessment & Plan: Vasotec ordered by Dr Almendarez (9) Alcohol abuse Status: Chronic Assessment & Plan: Reported per notes Continue Thiamine continue ativan prn (10) Tobacco abuse Status: Chronic Assessment & Plan: Discuss cessation when extubated (11) Counseling regarding end of life decision making Assessment & Plan: Discussed with family about patient's previous wishes, cancer prognosis, and current medical problems They would like to discuss with family but are requesting DNR status at this time Clinical Quality Measures End of Life/Advance Care Plan: Advance Care discuss with: family member (s) End of Life Care: Comfort Measures, Hospice (Hospital), Hospice Care (Home) Plan: initiate discussion, clarifying prognosis, identified end-of-life goals Time spent on discussion(mins): 25 DVT/VTE Risk/Contraindication: Risk Factor Score Per Nursin RFS Level Per Nursing on Admit: 4+=Very High JUAN FRANCISCO HARRY MD Jan 09, 2019 07:26
[2019-01-09] MEDS: KCL 20 MEQ TAB (K-DUR) PO SCH (07:34)
[2019-01-09] MEDS: MAGNESIUM 1 GM/100 ML IVPB 100 ML IV SCH (07:34)
[2019-01-09] MEDS: LORazepam INJ 2 MG/ML (ATIVAN) VIAL IV PRN (07:38)
[2019-01-09] MEDS: ENALAPRILAT 2.5 MG/2 ML (VASOTEC) VIAL IV SCH ×2 (07:42→21:17)
[2019-01-09] MEDS: PANTOPRAZOLE 40 MG (PROTONIX) VIAL IV SCH (07:42)
[2019-01-09] MEDS: ASPIRIN 81 MG CHEW (CHILDREN'S ASA) NG SCH (07:42)
[2019-01-09] MEDS: THIAMINE 100 MG/ML 2 ML (VITAMIN B-1) VIAL IV SCH (07:42)
[2019-01-09] MEDS: THIAMINE INJECTION 100 MG, FOLIC ACID INJECTION 1 MG, MAGNESIUM SULFATE 2 GM, VITAMIN M... IV SCH ×5 (08:00)
--- NOTE | 2019-01-09 09:26 | Diagnostic Imaging Report ---
INDICATION: Dyspnea, respiratory distress. TECHNIQUE: Single view chest 3:19 AM. CORRELATION STUDY: 01/08/2019 FINDINGS: Endotracheal tube, gastric tube and right-sided central line all remain in place. Heart size and mediastinum are stable. Component of central vascular congestion persisting stable to slightly improved. More focal areas of infiltrate, edema and/or atelectasis of the lung bases, left greater than right along with small left pleural effusion. Left upper lobe mass stable. Multiple overlying monitor leads are present. IMPRESSION: 1. Stable support lines and tubes. 2. Component of vascular congestion persisting may be slightly improved. Diminished initial edema. 3. Combination of atelectasis, infiltrate and/or edema along with effusions of the lung bases (left greater than right appears slightly progressed). 4. Unchanged left upper lobe mass. Dictated by: Dictated on workstation # [id number]
--- NOTE | 2019-01-09 10:03 | Cardiology Progress Note ---
Cardiology SOAP Progress Note Subjective: Intubated/ventilated Objective: I&O/Vital Signs 01/09/19 01/09/19 01/09/19 01/09/19 10:00 10:42 11:00 12:00 Pulse 105 101 103 103 Resp 21 19 13 17 B/P (MAP) 154/95 (114) 132/71 (91) 134/76 (95) Pulse Ox 92 91 91 91 O2 Delivery Mechanical Ventilator Mechanical Ventilator Mechanical Ventilator O2 Flow Rate 30.00 30.00 30.00 FiO2 30 01/09/19 01/09/19 01/09/19 01/09/19 12:00 12:00 12:56 12:57 Temp 98.1 98.1 B/P (MAP) 131/77 Pulse Ox 93 O2 Delivery Mechanical Ventilator FiO2 30 01/09/19 01/09/19 01/09/19 01/09/19 13:00 13:00 14:00 14:16 Pulse 101 97 96 96 Resp 19 16 16 B/P (MAP) 132/75 (94) 130/78 (95) Pulse Ox 93 91 91 O2 Delivery Mechanical Ventilator Mechanical Ventilator O2 Flow Rate 30.00 30.00 FiO2 30 01/09/19 01/09/19 01/09/19 01/09/19 15:00 15:40 16:00 16:00 Pulse 101 103 101 Resp 22 16 16 B/P (MAP) 136/79 (98) 127/78 (94) Pulse Ox 94 93 92 93 O2 Delivery Mechanical Ventilator Mechanical Ventilator Mechanical Ventilator O2 Flow Rate 30.00 30.00 FiO2 30 30 01/09/19 01/09/19 01/09/19 01/09/19 17:00 17:07 17:37 18:00 Temp 99.1 99.1 Pulse 95 95 85 Resp 12 17 15 B/P (MAP) 118/69 (85) 118/69 109/65 (80) Pulse Ox 91 92 93 O2 Delivery Mechanical Ventilator Mechanical Ventilator Mechanical Ventilator O2 Flow Rate 30.00 30.00 30.00 01/09/19 01/09/19 01/09/19 01/09/19 19:20 19:50 21:13 21:15 Temp 97.5 Pulse 85 85 Resp 16 16 16 B/P (MAP) 110/66 110/66 Pulse Ox 94 92 O2 Delivery Mechanical Ventilator O2 Flow Rate 30.00 FiO2 30 01/09/19 00:00 Intake Total 275 ml Output Total 2250 ml Balance -1975 ml Weight (Pounds): 210 Weight (Ounces): 0.0 Weight (Calculated Kilograms): 95.096126 Constitutional: other (intubated and sedated) Respiratory: No accessory muscle use, No respiratory distress; chest expansion is symmetric, chest is bilaterally symmetric, other (diminished throughout; scattered rhonchi) Cardiovascular: regular rate-rhythm; No JVD; S1 and S2, systolic murmur Gastrointestional: audible bowel sounds Extremities: significant edema (mild bilat LE swelling) Neurologic/Psychiatric: other (sedated, unable to cooperate with neuro exam) Skin: No rash, No ulcerations Results/Procedures: Labs Laboratory Tests 01/09/19 00:47: Glucometer 127H 01/09/19 03:36: White Blood Count 12.2H, Red Blood Count 4.16L, Hemoglobin 12.1L, Hematocrit 36L , Mean Corpuscular Volume 87, Mean Corpuscular Hemoglobin 29, Mean Corpuscular Hemoglobin Concent 34, Red Cell Distribution Width 17.7H, Platelet Count 163, Mean Platelet Volume 10.3, Neutrophils (%) (Auto) 93H, Lymphocytes (%) (Auto) 5L , Monocytes (%) (Auto) 3, Eosinophils (%) (Auto) 0, Basophils (%) (Auto) 0, Neutrophils # (Auto) 11.3H, Lymphocytes # (Auto) 0.6L, Monocytes # (Auto) 0.3, Eosinophils # (Auto) 0.0, Basophils # (Auto) 0.0, Sodium Level 142, Potassium Level 4.3, Chloride Level 109H, Carbon Dioxide Level 23, Anion Gap 10, Blood Urea Nitrogen 17, Creatinine 1.11, Estimat Glomerular Filtration Rate > 60, BUN/ Creatinine Ratio 15, Glucose Level 132H, Calcium Level 8.1L, Phosphorus Level 4.2, Magnesium Level 2.4, B-Type Natriuretic Peptide 373.7H 01/09/19 03:55: Blood Gas Puncture Site RIGHT RADIAL, Blood Gas Patient Temperature 97.2, Arterial Blood pH 7.36L, Arterial Blood Partial Pressure CO2 44, Arterial Blood Partial Pressure O2 162H, Arterial Blood HCO3 24, Arterial Blood Total CO2 25.4 , Arterial Blood Oxygen Saturation 99, Arterial Blood Base Excess -0.9, Daniel Test YES-POS, Blood Gas Ventilator Setting YES, Blood Gas Inspired Oxygen 60% 01/09/19 12:53: Glucometer 148H 01/09/19 17:01: Glucometer 124H Microbiology 01/07/19 Blood Culture - Preliminary, Resulted Staph, Coag Neg ([employer]) See Comments 01/07/19 MRSA Screen - Final, Complete MRSA not isolated 01/07/19 Urine Culture - Final, Complete NO GROWTH A/P: Assessment/Dx: Acute respiratory failure - intubated and sedated - managed by pulmonary services - likely multi-factorial d/t pneumonia, acute on chronic exacerbation of COPD, acute on chronic systolic CHF Septicemia, being treated by the Medical Services Elevated troponin likely secondary to hypoxia Sinus tachycardia - improved Acute renal insufficiency, improved Acute on chronic systolic CHF. 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 Carpio HTN Lung mass initially seen on CXR of 06-01-17 for which he has opted for no treatment. CTA of the chest on 01-07-19 showed enlarging left upper lobe mass, consistent with the known lung carcinoma. There are enlarged lymph nodes in the mediastinum and dinorah, likely owing to metastatic disease.- pulmonary services following Plan: Acute respiratory failure, likely multi-factorial as noted above Sepsis - management per medical/pulmonary services Sinus tachycardia - improved with BB Give Lasix as tolerated Echocardiogram to eval structure and LVEF - pending Continue ASA d/t known h/o carotid dz Monitor lab - replace electrolytes as indicated Thank you for your consultation. Please call me if you have any questions. Kaya Alvarado MD, FACP, FACC, FSCAI, FHRS, CCDS Interventional Cardiology Cardiac Electrophysiology Vascular Medicine and Endovascular Interventions Focused Exam Lactate Level 01/07/19 20:35: Lactic Acid Level 6.13*H 01/08/19 03:45: Lactic Acid Level 3.27*H 01/08/19 06:35: Lactic Acid Level 2.11*Linsey GUAJARDO MD Jan 09, 2019 10:03
--- NOTE | 2019-01-09 11:20 | NUR ---
Pastoral care visit with family at pts bedside, provided support and encouragement as Amita Younger and Oscar provided info to family. Family coping well.
[2019-01-09] MEDS: ENOXAPARIN 40 MG/0.4 ML (LOVENOX) SYR SC SCH (12:55)
--- NOTE | 2019-01-09 22:30 | NUR ---
Patient's family at bedside, requesting to wait to extubate until January 12. Informed family that plan was to start weaning patient and stopping sedation medication in the morning around 0330 to extubate January 10. Family not agreeable to this and informed them to discuss with Dr. Younger when make rounds in the morning. Will hold off weaning at this time.
[2019-01-10] VITALS (25 sets, daily range): BP systolic 109–155; BP diastolic 64–118
[2019-01-10] MEDS: meTOprolol 5 MG/5 ML (LOPRESSOR) VIAL IV SCH ×3 (00:18→12:22)
[2019-01-10] MEDS: inSUlin ASPART (NovoLOG) 1 UNIT/0.01 ML (CHARGE PER UNIT) SC SCH ×3 (00:18→12:22)
[2019-01-10] MEDS: RT-ALBUTEROL/IPRATROPIUM 3 ML (DUONEB) VIAL INH SCH ×4 (01:24→14:24)
[2019-01-10 03:50] LABS: BASOPHILS % (AUTO) 0 % (0-10); EOSINOPHILS % (AUTO) 0 % (0-10); HEMATOCRIT 37 % (40-54); HEMOGLOBIN 11.8 G/DL (13.3-17.7); LYMPHOCYTES # (AUTO) 0.7 X 10^3 (1.0-4.0); LYMPHOCYTES % (AUTO) 5 % (12-44); MEAN CORPUSCULAR HEMOGLOBIN 28 PG (25-34); MEAN CORPUSCULAR HGB CONC 32 G/DL (32-36); MEAN CORPUSCULAR VOLUME 88 FL (80-99); MEAN PLATELET VOLUME 10.5 FL (7.4-10.4); MONOCYTES # (AUTO) 0.4 X 10^3 (0.0-1.0); MONOCYTES % (AUTO) 3 % (0-12); NEUTROPHILS # (AUTO) 11.8 X 10^3 (1.8-7.8); NEUTROPHILS % (AUTO) 92 % (42-75); PLATELET COUNT 176 10^3/uL (130-400); RED CELL DISTRIBUTION WIDTH 17.7 % (10.0-14.5); WHITE BLOOD COUNT 12.8 10^3/uL (4.3-11.0)
[2019-01-10 03:50] LABS: ABG BASE EXCESS 4.1 MMOL/L (-2.5-2.5); ABG OXYGEN SATURATION 94 % (94-100); ABG PCO2 47 MMHG (35-45); ABG PO2 68 MMHG (79-93); ABG TCO2 30.4 MMOL/L (21.0-31.0)
[2019-01-10 03:52] LABS: ALLENS TEST YES-POS; INSPIRED O2 30%; VENTILATOR YES
[2019-01-10] MEDS: LACTATED RINGERS 1,000 ML IV SCH (04:11)
[2019-01-10] MEDS: PIPERACILLIN/TAZO 4.5 GM/NS 100 ML IV SCH ×2 (04:16)
[2019-01-10 04:20] LABS: BUN/CREATININE RATIO 25; CALCIUM 7.8 MG/DL (8.5-10.1); CARBON DIOXIDE 28 MMOL/L (21-32); CHLORIDE 106 MMOL/L (98-107); CREATININE SERUM 1.16 MG/DL (0.60-1.30); GFR ESTIMATED > 60; GLUCOSE 115 MG/DL (70-105); MAGNESIUM 2.8 MG/DL (1.8-2.4); PHOSPHORUS 5.2 MG/DL (2.3-4.7); POTASSIUM 4.5 MMOL/L (3.6-5.0); SODIUM 142 MMOL/L (135-145)
[2019-01-10] MEDS: MAGNESIUM 1 GM/100 ML IVPB 100 ML IV SCH (04:32)
[2019-01-10] MEDS: POTASSIUM CL 10MEQ/50ML IVPB 50 ML IV SCH (04:32)
[2019-01-10] MEDS: KCL 20 MEQ TAB (K-DUR) PO SCH (04:33)
[2019-01-10] MEDS ORDERED: NS (IVPB) 50 ML ONE (06:07)
[2019-01-10] MEDS: methylPREDNISolone 40 MG/ML (Solu-MEDROL) VIAL IV SCH ×2 (06:10→14:30)
--- NOTE | 2019-01-10 06:15 | Pulmonary Progress Note ---
Subjective Time Seen by a Provider: 06:15 Subjective/Events-last exam Family at bedside. Sepsis Event Evaluation Height, Weight, BMI Height: 5'10.00" Weight: 210lbs. 0.0oz. 95.411366cu; 27.7 BMI Method:Estimated Focused Exam Lactate Level 01/07/19 20:35: Lactic Acid Level 6.13*H 01/08/19 03:45: Lactic Acid Level 3.27*H 01/08/19 06:35: Lactic Acid Level 2.11*H Exam Exam Vital Signs Date Time Temp Pulse Resp B/P (MAP) Pulse Ox O2 Delivery O2 Flow Rate FiO2 01/10/19 04:18 114/72 01/10/19 04:16 81 114/72 01/10/19 04:10 Mechanical Ventilator 40.00 01/10/19 04:00 93 Mechanical Ventilator 30 01/10/19 04:00 97.0 01/10/19 04:00 80 16 116/70 (85) 89 Mechanical Ventilator 30.00 01/10/19 03:46 87 16 92 30 01/10/19 03:00 85 16 110/64 (79) 90 Mechanical Ventilator 30.00 01/10/19 02:00 85 15 114/67 (83) 91 Mechanical Ventilator 30.00 01/10/19 01:24 79 16 92 30 01/10/19 01:00 76 16 111/68 (82) 92 Mechanical Ventilator 30.00 01/10/19 01:00 76 01/10/19 00:45 81 15 112/69 (83) 92 Mechanical Ventilator 30.00 01/10/19 00:30 81 16 110/67 (81) 92 Mechanical Ventilator 30.00 01/10/19 00:15 82 15 112/71 (85) 91 Mechanical Ventilator 30.00 01/10/19 00:00 93 Mechanical Ventilator 30 01/10/19 00:00 89 16 116/70 (85) 90 Mechanical Ventilator 30.00 01/10/19 00:00 97.6 01/09/19 23:45 87 16 116/70 (85) 90 Mechanical Ventilator 30.00 01/09/19 23:30 91 15 122/75 (91) 91 Mechanical Ventilator 30.00 01/09/19 23:15 90 17 119/74 (89) 91 Mechanical Ventilator 30.00 01/09/19 23:00 90 21 120/72 (88) 91 Mechanical Ventilator 30.00 01/09/19 22:45 91 17 111/66 (81) 90 Mechanical Ventilator 30.00 01/09/19 22:30 86 16 110/66 (81) 91 Mechanical Ventilator 30.00 01/09/19 22:15 85 15 113/70 (84) 93 Mechanical Ventilator 30.00 01/09/19 22:09 81 16 93 30 01/09/19 22:00 81 15 112/68 (83) 92 Mechanical Ventilator 30.00 01/09/19 21:45 85 15 109/66 (80) 92 Mechanical Ventilator 30.00 01/09/19 21:30 83 15 109/66 (80) 92 Mechanical Ventilator 30.00 01/09/19 21:15 87 17 112/71 (85) 92 Mechanical Ventilator 30.00 01/09/19 21:15 85 16 110/66 92 Mechanical Ventilator 30.00 01/09/19 21:13 16 110/66 01/09/19 21:00 84 16 110/66 (81) 92 Mechanical Ventilator 30.00 01/09/19 20:45 85 15 111/69 (83) 92 Mechanical Ventilator 30.00 01/09/19 20:30 86 15 114/68 (83) 92 Mechanical Ventilator 30.00 01/09/19 20:15 Mechanical Ventilator 30.00 01/09/19 20:15 87 15 112/65 (81) 91 Mechanical Ventilator 30.00 01/09/19 20:00 Mechanical Ventilator 30.00 01/09/19 20:00 93 Mechanical Ventilator 30 01/09/19 20:00 87 16 112/69 (83) 91 Mechanical Ventilator 30.00 01/09/19 19:50 97.5 01/09/19 19:45 Mechanical Ventilator 30.00 01/09/19 19:45 89 14 122/74 (90) 92 Mechanical Ventilator 30.00 01/09/19 19:30 Mechanical Ventilator 30.00 01/09/19 19:30 85 15 124/78 (93) 94 Mechanical Ventilator 30.00 01/09/19 19:20 85 16 94 30 01/09/19 19:15 85 10 125/77 (93) 94 Mechanical Ventilator 30.00 01/09/19 19:15 Mechanical Ventilator 30.00 01/09/19 19:00 85 10 129/79 (96) 95 Mechanical Ventilator 30.00 01/09/19 19:00 85 10 Mechanical Ventilator 30.00 01/09/19 19:00 88 01/09/19 18:00 85 15 109/65 (80) 93 Mechanical Ventilator 30.00 01/09/19 17:37 99.1 01/09/19 17:07 99.1 95 17 118/69 92 Mechanical Ventilator 30.00 01/09/19 17:00 95 12 118/69 (85) 91 Mechanical Ventilator 30.00 01/09/19 16:00 93 Mechanical Ventilator 30 01/09/19 16:00 101 16 127/78 (94) 92 Mechanical Ventilator 30.00 01/09/19 15:40 103 16 93 30 01/09/19 15:00 101 22 136/79 (98) 94 Mechanical Ventilator 30.00 01/09/19 14:16 96 16 91 30 01/09/19 14:00 96 16 130/78 (95) 91 Mechanical Ventilator 30.00 01/09/19 13:00 97 19 132/75 (94) 93 Mechanical Ventilator 30.00 01/09/19 13:00 101 01/09/19 12:57 131/77 01/09/19 12:56 98.1 01/09/19 12:00 93 Mechanical Ventilator 30 01/09/19 12:00 98.1 01/09/19 12:00 103 17 134/76 (95) 91 Mechanical Ventilator 30.00 01/09/19 11:00 103 13 132/71 (91) 91 Mechanical Ventilator 30.00 01/09/19 10:42 101 19 91 30 01/09/19 10:00 105 21 154/95 (114) 92 Mechanical Ventilator 30.00 01/09/19 09:02 Mechanical Ventilator 30.00 01/09/19 09:00 100 22 132/75 (94) 92 Mechanical Ventilator 30.00 01/09/19 08:56 98 19 95 40 01/09/19 08:52 Mechanical Ventilator 40.00 01/09/19 08:00 105 18 128/73 (91) 92 Mechanical Ventilator 40.00 01/09/19 08:00 95 Mechanical Ventilator 40 01/09/19 07:43 98.8 105 19 125/84 92 Mechanical Ventilator 40.00 01/09/19 07:03 109 01/09/19 07:00 112 17 153/83 (106) 95 Mechanical Ventilator 40.00 01/09/19 07:00 98.8 01/09/19 06:35 100 19 96 50 I & O 01/10/19 07:00 Intake Total 0 ml Output Total 4570 ml Balance -4570 ml Height & Weight Height: 5'10.00" Weight: 210lbs. 0.0oz. 95.352321kc; 27.7 BMI Method:Estimated General Appearance: Chronically ill, Other (intubated and sedated) HEENT: Moist Mucous Membranes; No Scleral Icterus (L), No Scleral Icterus (R) Neck: Other (central line in place) Respiratory: Normal Breath Sounds, Other (intubated) Cardiovascular: Regular Rate, Rhythm, No JVD, No Murmur Capillary Refill: Greater Than 3 Seconds Extremity: Pedal Edema Neurologic/Psychiatric: Other (sedated on vent) Results Lab Laboratory Tests 01/09/19 03:36 01/10/19 03:31 Assessment/Plan Assessment/Plan Acute on chronic respiratory failure -Continue ventilatory care -Will start weaning ventilator today -Pt is on only Peep of 5 and Fi02 of 30% -SVNs Q 4 -Add Precedex, titrate Propofol to D/C, decrease Fentanyl to 50mcg -BNP- 342 will give another 40mg of Lasix Severe sepsis secondary to pneumonia -Zosyn -[place] cultures pending Metabolic lactic acidosis -IVF LANCE - improved -IVF NSTEMI -Cardiology following Lung cancer with enlarging pulmonary mass -Pt refused treatment per oncology notes -Consult hospice for education Tobacco dependance/alcohol abuse -[facility]MU[facility] protocol -Education Anemia -Monitor PT's overall prognosis is poor. Will consult hospice for education. Discussed with family pt's current medical condition and answered all questions with RN present. Family requested to leave pt sedated on vent until Monday then do terminal wean. I explained to them right now he is ready to start normal weaning process. I explained we can't just leave him on vent until Monday waiting for family. I am going to wake pt up and start weaning process. EDIL CARDENAS DO Jan 10, 2019 06:15
[2019-01-10] MEDS: DEXMEDETOMIDINE INJECTION 200 MCG in NS (IVPB) 50 ML IV SCH ×2 (07:00→07:36)
--- NOTE | 2019-01-10 07:30 | Diagnostic Imaging Report ---
INDICATION: Respiratory distress. Portable chest 2:41 AM FINDINGS: There is an ET tube projecting over the trachea. NG tube tip is in the distal esophagus. Right jugular central line tip projects over the SVC. Heart size and pulmonary vascularity are within normal limits. There is a dense consolidation in the left upper lobe adjacent to the aortic knob. There is bilateral basilar infiltrate or atelectasis. IMPRESSION: Bilateral basilar infiltrates and/or atelectasis with effusions. These have increased compared to previous day. Left upper lobe mass suspicious for neoplasm. NG tube is in the distal esophagus. Dictated by: Dictated on workstation # [id number]
--- NOTE | 2019-01-10 08:07 | Progress Note-Hospitalist ---
Subjective HPI/CC On Admission Date Seen by Provider: Jan 10, 2019 Time Seen by Provider: 08:04 Pt is a 68yoCM with a PMH of adenocarcinoma of lung diagnosed in 2017 currently under no treatment, COPD, tobacco abuse who presented to the ER due to SOB and lower extremity edema. He is intubated and sedated and unable to provide any history. All history obtained from the records. He called EMS due to worsening of shortness of breath today and when they arrived he was in extremis and CPAP was attempted but he did not tolerate it well. He was emergently intubated in the ER on arrival. He was sent toe CTA to rule out PE and in radiology has transient episodes of hypotension where they thought pulse was lost and compressions were started. This occurred twice per report. He received epi x1. There as concern that he possibly had a seizure as well. There is also report that he binges drinks alcohol. I am unable to confirm any of this as he is currently intubated and sedated. Subjective/Events-last exam Pt remains intubated and sedated at this time. Unable to provide ROS. Family at bedside and frustrated with plan to attempt weaning today. RN and I discussed that this is a good sign for him and that we are attempting weaning because he is improving but that he will not be extubated if he is not ready to be extubated. Focused Exam Lactate Level 01/07/19 20:35: Lactic Acid Level 6.13*H 01/08/19 03:45: Lactic Acid Level 3.27*H 01/08/19 06:35: Lactic Acid Level 2.11*H Objective Exam Vital Signs Vital Signs Date Time Temp Pulse Resp B/P (MAP) Pulse Ox O2 Delivery O2 Flow Rate FiO2 01/10/19 15:02 98.6 01/10/19 14:27 95 Nasal Cannula 3.00 01/10/19 13:00 101 01/10/19 13:00 14 146/118 (127) 01/10/19 12:00 40 Capillary Refill : Greater Than 3 Seconds General Appearance: Chronically ill, Other (intubated and sedated) HEENT: Moist Mucous Membranes; No Scleral Icterus (L), No Scleral Icterus (R) Neck: Other (central line in place) Respiratory: Normal Breath Sounds, Other (intubated) Cardiovascular: Regular Rate, Rhythm, No JVD, No Murmur Gastrointestinal: Normal Bowel Sounds, Non Tender, Soft Genital/Rectal: Other (thorne in place) Extremity: Pedal Edema Neurologic/Psychiatric: Other (sedated on vent) Results/Procedures Lab Laboratory Tests 01/10/19 03:31 Patient resulted labs reviewed. Imaging: Reviewed Imaging Report Assessment/Plan Assessment and Plan Assess & Plan/Chief Complaint Acute Respiratory Failure Diagnosis/Problems Diagnosis/Problems (1) Acute respiratory failure Assessment & Plan: Intubated and on vent Weaning trial today Pulm consulted, appreciate recs Infiltrates on CT chest- Continue Zosyn Propofol/Fentanyl for sedation Precedex added Flu negative Qualifiers: Respiratory failure complication: hypercapnia Qualified Codes: J96.02 - Acute respiratory failure with hypercapnia (2) Septic shock Assessment & Plan: Shock aspect resolved 2/2 pneumonia Continue Zosyn Sputum growing moraxella (3) NSTEMI (non-ST elevated myocardial infarction) Status: Acute Assessment & Plan: Cardiology consulted Appreciate recs Troponin trended down Continue ASA (4) LANCE (acute kidney injury) Assessment & Plan: LANCE resolved- creatinine 1.11 (5) Hypotension Status: Resolved Assessment & Plan: Resolved Qualifiers: Hypotension type: hypotension due to drug Qualified Codes: I95.2 - Hypotension due to drugs Resolution Date/Time: 01/08/19 @ 08:00 (6) Lung cancer Status: Acute Assessment & Plan: Diagnosed in 2017 Patient did not want treatment per cancer center notes Mass enlarging per report from CT Palliative Care consulted and met with family Qualifiers: Laterality: left Lung location: upper lobe of lung Qualified Codes: C34.12 - Malignant neoplasm of upper lobe, left bronchus or lung (7) Hyperglycemia Assessment & Plan: SSI No known history of DM Likely due to critical illness and steroids (8) Essential (primary) hypertension Assessment & Plan: Vasotec ordered by Dr Almendarez (9) Alcohol abuse Status: Chronic Assessment & Plan: Reported per notes Continue Thiamine continue ativan prn (10) Tobacco abuse Status: Chronic Assessment & Plan: Discuss cessation when extubated (11) Counseling regarding end of life decision making Assessment & Plan: Discussed prognosis with patient, multiple family members, Dr Younger, RN, and Palliative Care RN for another 15 minutes today Patient extubated earlier today and requested care directed only at comfort Will transition to comfort measures only Family has [facility] should he be able to get discharged Clinical Quality Measures End of Life/Advance Care Plan: Advance Care discuss with: patient, family member (s) End of Life Care: Comfort Measures, Hospice (Hospital), Hospice Care (Home) Plan: clarifying prognosis, identified end-of-life goals, developed treatment plan Time spent on discussion(mins): 15 DVT/VTE Risk/Contraindication: Risk Factor Score Per Nursin RFS Level Per Nursing on Admit: 4+=Very High JUAN FRANCISCO HARRY MD Jan 10, 2019 08:07
[2019-01-10] MEDS: PANTOPRAZOLE 40 MG (PROTONIX) VIAL IV SCH (08:14)
[2019-01-10] MEDS: ASPIRIN 81 MG CHEW (CHILDREN'S ASA) NG SCH (08:15)
[2019-01-10] MEDS: ENALAPRILAT 2.5 MG/2 ML (VASOTEC) VIAL IV SCH (08:15)
[2019-01-10] MEDS: THIAMINE 100 MG/ML 2 ML (VITAMIN B-1) VIAL IV SCH (08:15)
[2019-01-10] MEDS ORDERED: DEXMEDETOMIDINE INJECTION 1,000 MCG in NS (IVPB) 250 ML IV SCH (09:15)
--- NOTE | 2019-01-10 11:20 | NUR ---
Pastoral care visit, pt still extubated, no family present.
[2019-01-10 11:54] LABS: ABG OXYGEN SATURATION 98 % (94-100); ABG PCO2 45 MMHG (35-45); ABG PO2 100 MMHG (79-93); ABG TCO2 28.7 MMOL/L (21.0-31.0)
[2019-01-10 11:55] LABS: ALLENS TEST YES-POS; PATIENT TEMP 99.1; VENTILATOR YES
--- NOTE | 2019-01-10 12:58 | NUR ---
pt extubated to 3 lpm nasal cannula by Michelle SHRESTHA. this nurse at bedside. pt tolerated procedure well and is resting with family at bedside. no s/s of soa or pain at this time.
[2019-01-10] MEDS ORDERED: cefTRIAXone 1,000 MG/SWFI 10 ML IV PUSH IV SCH ×2 (13:00)
[2019-01-10] MEDS: ENOXAPARIN 40 MG/0.4 ML (LOVENOX) SYR SC SCH (14:30)
[2019-01-10] MEDS ORDERED: morphine INJ 4 MG/ML 1 ML (VIAL/SYRINGE) ONE ×3 (14:54→16:12)
--- NOTE | 2019-01-10 15:09 | Cardiology Progress Note ---
Cardiology SOAP Progress Note Subjective: Intubated/ventilated. Objective: I&O/Vital Signs 01/10/19 01/10/19 01/10/19 01/10/19 06:00 06:46 07:00 07:00 Temp 98.8 Pulse 75 76 84 85 Resp 16 16 16 B/P (MAP) 109/66 (80) 136/89 (105) Pulse Ox 95 97 97 O2 Delivery Mechanical Ventilator Mechanical Ventilator O2 Flow Rate 40.00 40.00 FiO2 40 01/10/19 01/10/19 01/10/19 01/10/19 07:00 08:00 08:00 08:00 Pulse 79 86 88 Resp 15 9 16 B/P (MAP) 131/88 (102) 133/88 (103) 135/95 (108) Pulse Ox 98 97 97 97 O2 Delivery Mechanical Ventilator Mechanical Ventilator Mechanical Ventilator Mechanical Ventilator O2 Flow Rate 40.00 40.00 40.00 FiO2 40 01/10/19 01/10/19 01/10/19 01/10/19 08:01 09:00 10:00 10:01 Pulse 85 85 81 76 Resp 16 7 7 18 B/P (MAP) 135/96 (109) 131/87 (102) Pulse Ox 97 98 98 98 O2 Delivery Mechanical Ventilator Mechanical Ventilator O2 Flow Rate 40.00 40.00 FiO2 40 40 01/10/19 01/10/19 01/10/19 01/10/19 11:00 11:16 12:00 12:00 Temp 99.1 Pulse 79 84 91 Resp 15 10 9 B/P (MAP) 129/82 (98) 140/95 (110) Pulse Ox 98 98 96 O2 Delivery Mechanical Ventilator Mechanical Ventilator O2 Flow Rate 40.00 40.00 01/10/19 01/10/19 01/10/19 01/10/19 12:00 12:58 13:00 13:00 Pulse 101 101 Resp 14 B/P (MAP) 146/118 (127) Pulse Ox 97 91 97 O2 Delivery Mechanical Ventilator Nasal Cannula Nasal Cannula O2 Flow Rate 3.00 3.00 FiO2 40 01/10/19 01/10/19 01/10/19 01/10/19 14:00 14:27 15:00 15:02 Temp 98.6 Pulse 103 106 Resp 16 16 B/P (MAP) 155/110 (125) 151/105 (120) Pulse Ox 96 95 96 O2 Delivery Nasal Cannula Nasal Cannula Nasal Cannula O2 Flow Rate 3.00 3.00 3.00 01/10/19 00:00 Intake Total 0 ml Output Total 2700 ml Balance -2700 ml Weight (Pounds): 217 Weight (Ounces): 5.0 Weight (Calculated Kilograms): 98.903251 Constitutional: other (intubated and sedated) Respiratory: No accessory muscle use, No respiratory distress; chest expansion is symmetric, chest is bilaterally symmetric, other (diminished throughout; scattered rhonchi) Cardiovascular: regular rate-rhythm; No JVD; S1 and S2, systolic murmur Gastrointestional: audible bowel sounds Extremities: significant edema (mild bilat LE swelling) Neurologic/Psychiatric: other (sedated, unable to cooperate with neuro exam) Skin: No rash, No ulcerations Results/Procedures: Labs Laboratory Tests 01/10/19 00:03: Glucometer 111H 01/10/19 03:31: White Blood Count 12.8H, Red Blood Count 4.17L, Hemoglobin 11.8L, Hematocrit 37L , Mean Corpuscular Volume 88, Mean Corpuscular Hemoglobin 28, Mean Corpuscular Hemoglobin Concent 32, Red Cell Distribution Width 17.7H, Platelet Count 176, Mean Platelet Volume 10.5H, Neutrophils (%) (Auto) 92H, Lymphocytes (%) (Auto) 5L, Monocytes (%) (Auto) 3, Eosinophils (%) (Auto) 0, Basophils (%) (Auto) 0, Neutrophils # (Auto) 11.8H, Lymphocytes # (Auto) 0.7L, Monocytes # (Auto) 0.4, Eosinophils # (Auto) 0.0, Basophils # (Auto) 0.0, Sodium Level 142, Potassium Level 4.5, Chloride Level 106, Carbon Dioxide Level 28, Anion Gap 8, Blood Urea Nitrogen 29H, Creatinine 1.16, Estimat Glomerular Filtration Rate > 60, BUN/ Creatinine Ratio 25, Glucose Level 115H, Calcium Level 7.8L, Phosphorus Level 5.2H, Magnesium Level 2.8H, B-Type Natriuretic Peptide 342.0H 01/10/19 03:43: Blood Gas Puncture Site R RAD, Blood Gas Patient Temperature 97.0, Arterial Blood pH 7.40, Arterial Blood Partial Pressure CO2 47H, Arterial Blood Partial Pressure O2 68L, Arterial Blood HCO3 29H, Arterial Blood Total CO2 30.4, Arterial Blood Oxygen Saturation 94, Arterial Blood Base Excess 4.1H, Daniel Test YES-POS, Blood Gas Ventilator Setting YES, Blood Gas Inspired Oxygen 30% 01/10/19 11:40: Blood Gas Puncture Site R RADIAL, Blood Gas Patient Temperature 99.1, Arterial Blood pH 7.40, Arterial Blood Partial Pressure CO2 45, Arterial Blood Partial Pressure O2 100H, Arterial Blood HCO3 27, Arterial Blood Total CO2 28.7, Arterial Blood Oxygen Saturation 98, Arterial Blood Base Excess 3.0H, Daniel Test YES-POS, Blood Gas Ventilator Setting YES, Blood Gas Inspired Oxygen PS 10 , 40% 01/10/19 12:32: Glucometer 109 01/10/19 16:50: Glucometer 113H Microbiology 01/07/19 Blood Culture - Preliminary, Resulted Staph, Coag Neg (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 Carpio HTN Lung mass initially seen on CXR of 06-01-17 for which he has opted for no treatment. CTA of the chest on 01-07-19 showed enlarging left upper lobe mass, consistent with the known lung carcinoma. There are enlarged lymph nodes in the mediastinum and dinorah, likely owing to metastatic disease.- pulmonary services following Plan: Acute respiratory failure, likely multi-factorial as noted above Sepsis - management per medical/pulmonary services Sinus tachycardia - improved with BB Give Lasix as tolerated Echocardiogram to eval structure and LVEF - pending Continue ASA d/t known h/o carotid dz Monitor lab - replace electrolytes as indicated Thank you for your consultation. Please call me if you have any questions. Kaya Larios MD, FACP, FACC, FSCAI, FHRS, CCDS Interventional Cardiology Cardiac Electrophysiology Vascular Medicine and Endovascular Interventions Focused Exam Lactate Level 01/07/19 20:35: Lactic Acid Level 6.13*H 01/08/19 03:45: Lactic Acid Level 3.27*H 01/08/19 06:35: Lactic Acid Level 2.11*H Clinical Quality Measures Type of Care: Type of Care: Comfort Measures, Hospice (Hospital), Hospice Care (Home) Linsey LARIOS MD Jan 10, 2019 15:09
[2019-01-10] MEDS ORDERED: ARTIFICAL TEARS 0.4 ML UNIT DOSE (REFRESH PLUS) OU PRN (15:15)
[2019-01-10] MEDS ORDERED: ONDANSETRON 4 MG/2 ML (SDV) Z0FRAN IVP PRN (15:15)
[2019-01-10] MEDS ORDERED: ATROPINE 1% OPHTHALMIC SOLN 2 ML SL PRN (15:15)
[2019-01-10] MEDS ORDERED: SCOPOLAMINE 1.5 MG (TRANSDERM-SCOP) PATCH TOP SCH (15:15)
[2019-01-10] MEDS ORDERED: morphine INJ 4 MG/ML 1 ML (VIAL/SYRINGE) IV PRN (15:15)
[2019-01-10] MEDS ORDERED: PROMETHAZINE INJ 25 MG/ML (PHENERGAN) AMP IVP PRN (15:15)
[2019-01-10] MEDS ORDERED: SALIVA STIMULANT MOUTH SPRAY (BIOTENE) 1.5 OZ MM PRN (15:15)
[2019-01-10] MEDS ORDERED: LORazepam ORAL CONCENTRATE 2 MG/ML 30 ML (ATIVAN) PO PRN (15:15)
[2019-01-10] MEDS ORDERED: morphine (ROXINOL) 10 MG/0.5 ML oral conc 0.5 ML PO PRN (15:15)
[2019-01-10] MEDS ORDERED: ACETAMINOPHEN 650 MG SUPP (TYLENOL) PR PRN (15:15)
[2019-01-10] MEDS ORDERED: RT-ALBUTEROL/IPRATROPIUM 3 ML (DUONEB) VIAL INH PRN (15:15)
[2019-01-10] MEDS ORDERED: BISACODYL 10 MG SUPP (DULCOLAX) PR PRN (15:15)
[2019-01-10] MEDS ORDERED: LORazepam INJ 2 MG/ML (ATIVAN) VIAL ONE (15:29)
[2019-01-10] MEDS: LORazepam INJ 2 MG/ML (ATIVAN) VIAL IVP PRN ×3 (15:34→21:27)
[2019-01-10] MEDS ORDERED: LORazepam INJ 2 MG/ML (ATIVAN) VIAL IVP NR ×2 (15:45)
[2019-01-10] MEDS: GLYCOPYRROLATE 0.2 MG/ML (ROBINUL) 2 ML VIAL IV PRN ×2 (15:46→20:35)
[2019-01-10] MEDS ORDERED: fentaNYL PATCH 25 MCG (DURAGESIC) TD SCH (16:00)
[2019-01-10] MEDS: morphine INJ 4 MG/ML 1 ML (VIAL/SYRINGE) IV PRN ×3 (16:15→20:35)
[2019-01-10] MEDS ORDERED: LORazepam INJ 2 MG/ML (ATIVAN) VIAL IVP PRN (16:45)
[2019-01-10] MEDS ORDERED: LEVETIRACETAM INJECTION 1,000 MG in NS (IVPB) 100 ML IV NR (17:00)
[2019-01-10] MEDS ORDERED: LORazepam INJ 2 MG/ML (ATIVAN) VIAL IVP ONE (17:00)
--- NOTE | 2019-01-10 17:17 | NUR ---
pt was made comfort care and proceeded to have 3 large seizures with no hx of such. dr ba ordered 2 mg ativan for the first one and then this nurse gave 2 mg for the second. the last large seizure dr hoyt was notified and ordered 4 mg ativan one time then to change iv ativan to 2-4 mg q1h anxiety or seizure and a one time dose of keppra iv 1 gram. fent patch placed on pt's left lower back. pt is resting with eyes closed at this time and family at bedside.
--- NOTE | 2019-01-10 20:00 | NUR ---
1919--Family called out, reporting pt having pain and/or air hunger, requesting morphine, see eMAR 1939--Family called out, reporting pt having another seizure, this RN to bedside immediately, no seizure activity noted, family reports pt has "calmed down now", ativan administered per family request, see eMAR Education and therapeutic communication attempted with family, verbalized understanding, need reinforcement.
[2019-01-11] MEDS: morphine INJ 4 MG/ML 1 ML (VIAL/SYRINGE) IV PRN ×8 (00:19→22:51)
[2019-01-11] MEDS: LORazepam INJ 2 MG/ML (ATIVAN) VIAL IVP PRN ×6 (02:07→22:51)
[2019-01-11] MEDS: GLYCOPYRROLATE 0.2 MG/ML (ROBINUL) 2 ML VIAL IV PRN ×4 (02:07→15:32)
--- NOTE | 2019-01-11 10:30 | NUR ---
Patient is resting in bed with sonorous respirations noted. He feels warm to touch et moans off et on when you speak to him. His lips are discolored et blueish. He has been receiving comfort medications et the primary care nurse Cathy is giving medications to help with audible respirations. He does appear to be resting comfortably. Discussed hospice choices with family et they have elected [facility] if patient is able to discharge to brother Mingo's home. Called et spoke with [facility] et faxed information to them they will be able to supply equipment if patient is discharged to home over the weekend. Family denies any further needs at this time. Crystal is Bill's sister et she is at bedside at most times. Lucy is a niece et she is also at bedside most of the time. [facility] staff Paige Arias will call the floor in the morning to talk with staff et ultimately visit with the family to make arrangements for the patient at home.
--- NOTE | 2019-01-11 11:20 | NUR ---
Pastoral care visit.
--- NOTE | 2019-01-11 12:19 | Cardiology Progress Note ---
Cardiology SOAP Progress Note Subjective: No cardiac symptoms. Objective: I&O/Vital Signs 01/11/19 08:28 O2 Delivery Room Air 01/11/19 00:00 Intake Total 110 ml Output Total 475 ml Balance -365 ml Weight (Pounds): 217 Weight (Ounces): 5.0 Weight (Calculated Kilograms): 98.431670 Constitutional: No appears stated age, No AAO x 3, No apparent distress, No PERRL, No well-developed, No well-nourished; other (intubated and sedated) Respiratory: No accessory muscle use, No respiratory distress; chest expansion is symmetric, chest is bilaterally symmetric, other (diminished throughout; scattered rhonchi) Cardiovascular: regular rate-rhythm; No JVD; S1 and S2, systolic murmur Gastrointestional: No tender, No soft, No round, No distended, No pulsatile mass, No organomegaly, No guarding, No rebound, No tenderness, No hernia, No mass; audible bowel sounds; No abnormal bowel sounds, No abdominal bruits, No spleenomegaly, No other Extremities: No normal range of motion, No non-tender, No normal inspection, No pedal edema, No calf tenderness, No normal capillary refill, No pelvis stable , No calf tenderness, No inflammation, No pedal edema, No slow capillary refill , No swelling, No other, No abrasion, No clubbing, No cyanosis, No ecchymosis, No laceration, No no lower extremity edema bilateral; significant edema (mild bilat LE swelling); No tenderness, No wound Neurologic/Psychiatric: no motor/sensory deficits, alert, normal mood/affect, oriented x 3, other (sedated, unable to cooperate with neuro exam) Skin: No normal color, No warm/dry, No cyanosis, No cool, No diaphoresis, No damp, No ecchymosis, No jaundice, No mottled, No pallor, No rash, No tattoos/ piercings, No ulcerations, No rash on exposed areas, No ulcerations on exposed areas, No other Results/Procedures: Labs Laboratory Tests 01/10/19 12:32: Glucometer 109 01/10/19 16:50: Glucometer 113H Microbiology 01/07/19 Blood Culture - Preliminary, Resulted Staph, Coag Neg (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 Carpio HTN Lung mass initially seen on CXR of 06-01-17 for which he has opted for no treatment. CTA of the chest on 01-07-19 showed enlarging left upper lobe mass, consistent with the known lung carcinoma. There are enlarged lymph nodes in the mediastinum and dinorah, likely owing to metastatic disease.- pulmonary services following Plan: Acute respiratory failure, likely multi-factorial as noted above Sepsis - management per medical/pulmonary services Sinus tachycardia - improved with BB Give Lasix as tolerated Echocardiogram to eval structure and LVEF - pending Continue ASA d/t known h/o carotid dz Monitor lab - replace electrolytes as indicated Thank you for your consultation. Please call me if you have any questions. Kaya Larios MD, FACP, FACC, FSCAI, FHRS, CCDS Interventional Cardiology Cardiac Electrophysiology Vascular Medicine and Endovascular Interventions Clinical Quality Measures Type of Care: Type of Care: Comfort Measures, Hospice (Hospital), Hospice Care (Home) Linsey LARIOS MD Jan 11, 2019 12:19 pm
--- NOTE | 2019-01-11 13:29 | Pulmonary Progress Note ---
Standard Progress Note Progress Notes Time Seen by Provider: 13:28 PT is now Comfort care only. Pt appears comfortable and no current seizure activity Assessment & Plan Acute on chronic respiratory failure Severe sepsis secondary to pneumonia Metabolic lactic acidosis LANCE - improved NSTEMI Lung cancer with enlarging pulmonary mass Tobacco dependance/alcohol abuse Anemia PT is now Comfort care only. Pt appears comfortable and no current seizure activity. I am going to sign off please call with any questions or concerns. EDIL CARDENAS DO Jan 11, 2019 13:28
--- NOTE | 2019-01-11 14:31 | Progress Note-Hospitalist ---
Subjective HPI/CC On Admission Date Seen by Provider: Jan 11, 2019 Time Seen by Provider: 14:26 Pt is a 68yoCM with a PMH of adenocarcinoma of lung diagnosed in 2017 currently under no treatment, COPD, tobacco abuse who presented to the ER due to SOB and lower extremity edema. He is intubated and sedated and unable to provide any history. All history obtained from the records. He called EMS due to worsening of shortness of breath today and when they arrived he was in extremis and CPAP was attempted but he did not tolerate it well. He was emergently intubated in the ER on arrival. He was sent toe CTA to rule out PE and in radiology has transient episodes of hypotension where they thought pulse was lost and compressions were started. This occurred twice per report. He received epi x1. There as concern that he possibly had a seizure as well. There is also report that he binges drinks alcohol. I am unable to confirm any of this as he is currently intubated and sedated. Subjective/Events-last exam Pt is laying in bed resting comfortably. Does not respond to verbal/physical stimuli at this time. Family at bedside state he has appeared comfortable most of the time and that medications are assisting with that. Objective Exam Vital Signs Vital Signs Date Time Temp Pulse Resp B/P (MAP) Pulse Ox O2 Delivery O2 Flow Rate FiO2 01/11/19 08:28 Room Air 01/10/19 15:02 98.6 01/10/19 15:00 106 16 151/105 (120) 96 3.00 01/10/19 12:00 40 Capillary Refill : Greater Than 3 Seconds General Appearance: Chronically ill HEENT: No Scleral Icterus (L), No Scleral Icterus (R) Respiratory: No Accessory Muscle Use, No Respiratory Distress; No Rhonci Cardiovascular: Regular Rate, Rhythm, No Murmur Genital/Rectal: Other Neurologic/Psychiatric: Other (sleeping, stirred to physicial stimuli) Skin: Other (perioral cyanosis noted) Results/Procedures Lab Patient resulted labs reviewed. Imaging: Reviewed Imaging Report Assessment/Plan Assessment and Plan Assess & Plan/Chief Complaint Acute Respiratory Failure Diagnosis/Problems Diagnosis/Problems (1) Palliative care patient Assessment & Plan: Comfort measures only Continue Ativan and Morphine as needed for air hunger Orderset in place (2) Lung cancer Status: Acute Assessment & Plan: Diagnosed in 2017 Patient did not want treatment per cancer center notes Qualifiers: Laterality: left Lung location: upper lobe of lung Qualified Codes: C34.12 - Malignant neoplasm of upper lobe, left bronchus or lung (3) Acute respiratory failure Qualifiers: Respiratory failure complication: hypercapnia Qualified Codes: J96.02 - Acute respiratory failure with hypercapnia (4) Septic shock (5) NSTEMI (non-ST elevated myocardial infarction) Status: Acute (6) LANCE (acute kidney injury) (7) Hypotension Status: Resolved Qualifiers: Hypotension type: hypotension due to drug Qualified Codes: I95.2 - Hypotension due to drugs Resolution Date/Time: 01/08/19 @ 08:00 (8) Hyperglycemia (9) Essential (primary) hypertension Assessment & Plan: Vasotec ordered by Dr Almendarez (10) Alcohol abuse Status: Chronic (11) Tobacco abuse Status: Chronic Assessment & Plan: Discuss cessation when extubated (12) Counseling regarding end of life decision making Clinical Quality Measures DVT/VTE Risk/Contraindication: Risk Factor Score Per Nursin RFS Level Per Nursing on Admit: 4+=Very High JUAN FRANCISCO HARRY MD Jan 11, 2019 14:31
--- NOTE | 2019-01-11 16:21 | NUR ---
Family had questions about removing Bill's money from the ED safe. F/U with risk et it is reported that upon or discharge the patient's personal belongings should be released to first spouse, second oldest child, and then third oldest sibling. The patient does not have a spouse nor children in contact with the patient. His brother Mingo is the oldest living sibling et does have a copy of the ED safe receipt. This should be released to Mingo when Bill passes away or is discharged from the hospital. I updated the primary care nurse Cathy argueta the dye house supervisor Josy with this information.
[2019-01-12] MEDS: morphine INJ 4 MG/ML 1 ML (VIAL/SYRINGE) IV PRN ×11 (00:13→15:54)
[2019-01-12] MEDS: LORazepam INJ 2 MG/ML (ATIVAN) VIAL IVP PRN ×3 (03:20→14:07)
[2019-01-12] MEDS: GLYCOPYRROLATE 0.2 MG/ML (ROBINUL) 2 ML VIAL IV PRN ×2 (04:24→08:48)
--- NOTE | 2019-01-12 09:03 | NUR ---
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
--- NOTE | 2019-01-12 09:38 | Progress Note-Hospitalist ---
Subjective HPI/CC On Admission Date Seen by Provider: Jan 12, 2019 Time Seen by Provider: 09:36 Pt is a 68yoCM with a PMH of adenocarcinoma of lung diagnosed in 2017 currently under no treatment, COPD, tobacco abuse who presented to the ER due to SOB and lower extremity edema. He is intubated and sedated and unable to provide any history. All history obtained from the records. He called EMS due to worsening of shortness of breath today and when they arrived he was in extremis and CPAP was attempted but he did not tolerate it well. He was emergently intubated in the ER on arrival. He was sent toe CTA to rule out PE and in radiology has transient episodes of hypotension where they thought pulse was lost and compressions were started. This occurred twice per report. He received epi x1. There as concern that he possibly had a seizure as well. There is also report that he binges drinks alcohol. I am unable to confirm any of this as he is currently intubated and sedated. Subjective/Events-last exam Pt sleeping. Resting comfortably. Family at bedside. Objective Exam Vital Signs Vital Signs Date Time Temp Pulse Resp B/P (MAP) Pulse Ox O2 Delivery O2 Flow Rate FiO2 01/12/19 07:57 Room Air 01/10/19 15:02 98.6 01/10/19 15:00 106 16 151/105 (120) 96 3.00 01/10/19 12:00 40 Capillary Refill : Greater Than 3 Seconds General Appearance: Chronically ill HEENT: No Scleral Icterus (L), No Scleral Icterus (R) Respiratory: No Accessory Muscle Use, No Respiratory Distress Cardiovascular: Regular Rate, Rhythm, No Murmur Genital/Rectal: Other Neurologic/Psychiatric: Other (somnolent) Skin: Other (perioral cyanosis noted) Results/Procedures Lab Patient resulted labs reviewed. Imaging: Reviewed Imaging Report Assessment/Plan Assessment and Plan Assess & Plan/Chief Complaint Acute Respiratory Failure Diagnosis/Problems Diagnosis/Problems (1) Palliative care patient Assessment & Plan: Comfort measures only Continue Ativan and Morphine as needed for air hunger- controlled with current regimen Orderset in place Consider discharge Monday with [facility] is not progressing (2) Lung cancer Status: Acute Assessment & Plan: Diagnosed in 2017 Patient did not want treatment per cancer center notes Qualifiers: Laterality: left Lung location: upper lobe of lung Qualified Codes: C34.12 - Malignant neoplasm of upper lobe, left bronchus or lung (3) Acute respiratory failure Qualifiers: Respiratory failure complication: hypercapnia Qualified Codes: J96.02 - Acute respiratory failure with hypercapnia (4) Septic shock (5) NSTEMI (non-ST elevated myocardial infarction) Status: Acute (6) LANCE (acute kidney injury) (7) Hypotension Status: Resolved Qualifiers: Hypotension type: hypotension due to drug Qualified Codes: I95.2 - Hypotension due to drugs Resolution Date/Time: 01/08/19 @ 08:00 (8) Hyperglycemia (9) Essential (primary) hypertension (10) Alcohol abuse Status: Chronic (11) Tobacco abuse Status: Chronic Assessment & Plan: Discuss cessation when extubated (12) Counseling regarding end of life decision making Clinical Quality Measures DVT/VTE Risk/Contraindication: Risk Factor Score Per Nursin RFS Level Per Nursing on Admit: 4+=Very High JUAN FRANCISCO HARRY MD Jan 12, 2019 09:38
--- NOTE | 2019-01-12 14:14 | Cardiology Progress Note ---
Cardiology SOAP Progress Note Subjective: Significant shortness of breath. Objective: I&O/Vital Signs 01/12/19 07:57 O2 Delivery Room Air 01/12/19 00:00 Intake Total 0 ml Output Total 700 ml Balance -700 ml Weight (Pounds): 217 Weight (Ounces): 5.0 Weight (Calculated Kilograms): 98.380385 Constitutional: No appears stated age, No AAO x 3, No apparent distress, No PERRL, No well-developed, No well-nourished Respiratory: No accessory muscle use, No respiratory distress; chest expansion is symmetric, chest is bilaterally symmetric, other (diminished throughout; scattered rhonchi) Cardiovascular: regular rate-rhythm; No JVD; S1 and S2, systolic murmur Gastrointestional: No tender, No soft, No round, No distended, No pulsatile mass, No organomegaly, No guarding, No rebound, No tenderness, No hernia, No mass; audible bowel sounds; No abnormal bowel sounds, No abdominal bruits, No spleenomegaly, No other Extremities: No normal range of motion, No non-tender, No normal inspection, No pedal edema, No calf tenderness, No normal capillary refill, No pelvis stable , No calf tenderness, No inflammation, No pedal edema, No slow capillary refill , No swelling, No other, No abrasion, No clubbing, No cyanosis, No ecchymosis, No laceration, No no lower extremity edema bilateral; significant edema (mild bilat LE swelling); No tenderness, No wound Neurologic/Psychiatric: no motor/sensory deficits, alert, normal mood/affect, oriented x 3, other (sedated, unable to cooperate with neuro exam) Skin: No normal color, No warm/dry, No cyanosis, No cool, No diaphoresis, No damp, No ecchymosis, No jaundice, No mottled, No pallor, No rash, No tattoos/ piercings, No ulcerations, No rash on exposed areas, No ulcerations on exposed areas, No other Results/Procedures: Labs Microbiology 01/07/19 Blood Culture - Preliminary, Resulted Staph, Coag 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 Acute respiratory failure - managed by pulmonary services - likely multi- factorial d/t pneumonia, acute on chronic exacerbation of COPD, acute on chronic systolic CHF Septicemia, being treated by the Medical Services Elevated troponin likely secondary to hypoxia Sinus tachycardia - improved Acute renal insufficiency, improved Acute on chronic systolic CHF. 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 Carpio HTN Lung mass initially seen on CXR of 06-01-17 for which he has opted for no treatment. CTA of the chest on 01-07-19 showed enlarging left upper lobe mass, consistent with the known lung carcinoma. There are enlarged lymph nodes in the mediastinum and dinorah, likely owing to metastatic disease.- pulmonary services following Plan: Patient is on hospice care. Thank you for your consultation. Please call me if you have any questions. Kaya Larios MD, FACP, FACC, FSCAI, FHRS, CCDS Interventional Cardiology Cardiac Electrophysiology Vascular Medicine and Endovascular Interventions Clinical Quality Measures Type of Care: Type of Care: Comfort Measures, Hospice (Hospital), Hospice Care (Home) Linsey LARIOS MD Jan 12, 2019 2:14 pm
--- NOTE | 2019-01-12 16:06 | NUR ---
Respirations, & pulse ceased, witnessed by family, this RN, & ALEENA Locke.
--- NOTE | 2019-01-12 17:01 | NUR ---
[facility] NOTIFIED
--- NOTE | 2019-01-12 17:14 | NUR ---
BOOK[facility]ae[facility] [employer] [employer] CALLED.PROVIDED INFORMATION,
--- NOTE | 2019-01-12 17:37 | NUR ---
BODY REMOVED BY [facility].
[2019-01-13] MEDS ORDERED: FENTANYL PATCH REMOVAL TP SCH (16:00)
== END 2019-01-12 17:37 | disposition expired | DRG 871 ==
LOC: EDUNIT# 10:20 → ER 10:21 → ICU 12:51 → 4TH 01-11 10:13
PROVIDERS: ADMIT Family Medicine; ATTEND Family Medicine
PROC: 5A1945Z Respiratory Ventilation, 24-96 Consecutive Hours (ICD-10-PCS; principal; 2019-01-07)
DX: A41.9 Sepsis, unspecified organism (principal); R65.21 Severe sepsis with septic shock; J18.1 Lobar pneumonia, unspecified organism; I11.0 Hypertensive heart disease with heart failure; I50.23 Acute on chronic systolic (congestive) heart failure; J96.22 Acute and chronic respiratory failure with hypercapnia; C34.12 Malignant neoplasm of upper lobe, left bronchus or lung; Z66 Do not resuscitate; Z51.5 Encounter for palliative care; C77.1 Secondary and unspecified malignant neoplasm of intrathoracic lymph nodes; N17.9 Acute kidney failure, unspecified; E87.2 Acidosis; I21.A1 Myocardial infarction type 2; J43.9 Emphysema, unspecified; I95.2 Hypotension due to drugs; F10.20 Alcohol dependence, uncomplicated; F17.210 Nicotine dependence, cigarettes, uncomplicated; I73.9 Peripheral vascular disease, unspecified; I69.351 Hemiplegia and hemiparesis following cerebral infarction affecting right dominant side; R73.9 Hyperglycemia, unspecified; R00.0 Tachycardia, unspecified; I65.22 Occlusion and stenosis of left carotid artery
CPT/HCPCS: 36415; 36600; 70450; 71045; 71275; 80048; 80053; 80320; 81000; 82550; 82805; 82962; 83605; 83735; 83880; 84100; 84484; 85007; 85025; 85027; 85610; 85730; 87040; 87070; 87077; 87081; 87088; 87185; 87205; 87804; 93005; 93306; 94002; 94003; 94640; 94799; 96361; 96365; 96375; 99291